=== PATIENT | female | born 1950 | race Caucasian/White ===

== ENCOUNTER 2016-09-24 17:49 | Observation (INO) | payer MEDICARE, OTHER ==
--- NOTE | 2016-09-24 18:18 | EDM.PDOC ---
ED HPI GENERAL MEDICAL PROBLEM - General Chief Complaint: General Stated Complaint: SOB Time Seen by Provider: 09/24/16 17:50 Source of Information: Reports: Patient History Limitations: Reports: No Limitations - History of Present Illness INITIAL COMMENTS - FREE TEXT/NARRATIVE: According to patient she has been feeling shortness of breath since today morning. Pt does have CHF with sever pulmonary hypertension with obstructive sleep apnea. She does use oxygen by nasal canula. No chest pain. But claims she does not feel good. No fever or chills. No sweating. No calf pain. Pt does appear comfortable in the emergency room. Not tachypnec. Sats are around 91% on her routine 2 litre oxygen. - Related Data Allergies Allergy/AdvReac Type Severity Reaction Status Date / Time No Known Allergies Allergy Verified 07/18/15 22:24 Home Meds: Home Meds Ipratropium/Albuterol Sulfate [Iprat-Albut 0.5-3(2.5) MG/3 ML] 2.5 mg IH Q4HR PRN 09/13/13 [History] Lisinopril 10 mg PO DAILY 09/13/13 [History] Nitroglycerin [Nitrostat] 0.4 mg SL Q5M PRN 09/13/13 [History] Omeprazole 20 mg PO DAILY 09/13/13 [History] Pregabalin [Lyrica] 150 mg PO BID 09/13/13 [History] Gabapentin [Neurontin] 1 cap PO BID 01/03/15 [History] Topiramate 1 tab PO DAILY 01/03/15 [History] Vit B12/Fa/Pyridoxine HCl/AA15 [Glycotrol] 1,000 mcg PO DAILY 01/03/15 [History] oxyCODONE HCl/Acetaminophen [Percocet 5-325 mg Tablet] 1 tab PO BID 01/03/15 [ History] rOPINIRole [Requip] 4 mg PO BEDTIME 01/04/15 [History] Insulin Aspart [Novolog Flexpen] 4 unit SQ ASDIRECTED 01/14/16 [History] Bumetanide 2 mg PO BID 09/15/16 [History] Carvedilol 25 mg PO BID 09/15/16 [History] Insulin Glargine,Hum.Rec.Anlog [Lantus Solostar] 20 unit SQ BEDTIME 09/15/16 [ History] LORazepam 1 tab PO ASDIRECTED 09/15/16 [History] Mupirocin Oint [Bactroban Oint] 1 strip TOP DAILY 09/15/16 [History] Pregabalin [Lyrica] 1 tab PO BEDTIME 09/15/16 [History] atorvaSTATin Calcium [Atorvastatin Calcium] 1 tab PO DAILY 09/15/16 [History] hydrOXYzine HCl [hydrOXYzine] 1 tab PO BEDTIME PRN 09/15/16 [History] traZODone 1 tab PO BEDTIME PRN 09/15/16 [History] Past Medical History HEENT History: Reports: Other (See Below) Other HEENT History: Eye removed Cardiovascular History: Reports: Blood Clots/VTE/DVT, High Cholesterol, Hypertension, SOB on Exertion, Stents Respiratory History: Reports: Pneumonia, Recurrent, SOB Gastrointestinal History: Reports: Chronic Constipation Genitourinary History: Reports: UTI, Recurrent [employer] History: Reports: Musculoskeletal History: Reports: Back Pain, Chronic, Fibromyalgia Neurological History: Reports: None Psychiatric History: Reports: Anxiety Endocrine/Metabolic History: Reports: Diabetes, Type II, Obesity/BMI 30+ Hematologic History: Reports: Iron Deficiency, Other (See Below) Other Hematologic History: DVTs - Infectious Disease History Infectious Disease History: Reports: Chicken Pox, Measles, Mumps - Past Surgical History HEENT Surgical History: Reports: Cataract Surgery, Eye Surgery Cardiovascular Surgical History: Reports: None, Other (See Below) Social & Family History - Family History Family Medical History: Noncontributory HEENT: Reports: Cataract, Macular Degeneration Cardiac: Reports: MS, Stent Respiratory: Reports: Asthma, COPD GI: Reports: Other (See Below) Other GI Family History: cancer : Reports: Other (See Below) Other Family History: cancer OBGYN: Reports: Other (See Below) Other OBGYN Family History: not sure Musculoskeletal: Reports: Arthritis Neurological: Reports: Alzheimers Disease, Dementia, Migraines, Neuropathy, Peripheral Psychiatric: Reports: Anxiety Endocrine/Metabolic: Reports: Diabetes, type II, Obesity/MBI 30+ Hematologic: Reports: Anemia Oncologic: Reports: Bladder, Other (See Below) Other Oncologic Family History: stomach - Tobacco Use Smoking Status *Q: Former Smoker Years of Tobacco use: 50 Packs/Tins Daily: 0 Used Tobacco, but Quit: Yes Month Tobacco Last Used: 01 Second Hand Smoke Exposure: Yes - Caffeine Use Caffeine Use: Reports: Tea - Alcohol Use Days Per Week of Alcohol Use: 1 Number of Drinks Per Day: 1 Total Drinks Per Week: 1 - Recreational Drug Use Recreational Drug Use: Yes Drug Use in Last 12 Months: Yes Recreational Drug Type: Reports: Marijuana/Hashish Recreational Drug Use Frequency: Weekly Recreational Drug Last Use: 09/13/2013 - Living Situation & Occupation Living situation: Reports: Occupation: Unemployed ED ROS GENERAL - Review of Systems Review Of Systems: See Below Constitutional: Denies: Fever, Chills, Malaise, Weakness HEENT: Denies: Sinus Problem, Throat Pain, Throat Swelling Respiratory: Reports: Shortness of Breath. Denies: Wheezing, Pleuritic Chest Pain, Cough, Sputum Cardiovascular: Denies: Chest Pain, Lightheadedness GI/Abdominal: Denies: Abdominal Pain, Nausea, Vomiting : Denies: Dysuria, Flank Pain Musculoskeletal: Reports: Back Pain (chronic). Denies: Joint Pain, Joint Swelling Skin: Denies: Pruritis, Rash Neurological: Denies: Confusion, Dizziness, Headache, Numbness, Syncope, Tingling Psychiatric: Denies: Agitation, Anxiety ED EXAM, GENERAL - Physical Exam Exam: See Below Exam Limited By: No Limitations General Appearance: Alert, WD/WN, No Apparent Distress Eye Exam: Bilateral Eye: EOMI, PERRL Ears: Normal External Exam, Normal Canal, Hearing Grossly Normal, Normal TMs Ear Exam: Bilateral Ear: Auricle Normal, Canal Normal, TM normal Nose: Normal Inspection, Normal Mucosa, No Blood Throat/Mouth: Normal Inspection, Normal Lips, Normal Teeth, Normal Gums, Normal Oropharynx, Normal Voice, No Airway Compromise Head: Atraumatic, Normocephalic Neck: Normal Inspection, Supple, Non-Tender, Full Range of Motion Respiratory/Chest: No Respiratory Distress, No Accessory Muscle Use, Chest Non- Tender, Decreased Breath Sounds (B/L), Wheezing (few expiratory rhonchi heard over the lung felipe) Cardiovascular: Normal Peripheral Pulses, Regular Rate, Rhythm, No Edema, No Gallop, No JVD, No Murmur, No Rub Peripheral Pulses: 2+: Carotid (L), Carotid (R), Radial (L), Radial (R) GI/Abdominal: Normal Bowel Sounds, Soft, Non-Tender, No Organomegaly, No Distention, No Abnormal Bruit, No Mass Extremities: Pedal Edema Neurological: Alert, Oriented, CN II-XII Intact Psychiatric: Normal Affect, Normal Mood EKG INTERPRETATION EKG Date: 09/24/16 Rhythm: NSR Kiln: Normal QRS: Normal ST-T: Normal QT: Normal Course - Vital Signs Text/Narrative:: Pt claims she is short of breath, but her SPO2 is a her base line of 91% on 2 litres NC O2. Also she does not appears in any discomfort and her respiratory rate is 12-14/min. Pt does appear stable. She did receive duoneb treatment. her breath sounds improved. SPO upto 95% when she breaths through her nostrils. Also she received Lasix 40mg IV times one. Pt claims that her Shortness of breath has improved after lasix and duonebs. Pt recently has been evaluated by heel cover splitter for Severe pulmonary hypertension. She is due to get CT chest with contrast. Will get it done today to see if her SOB is intrinsic lung disease causing the shortness of breath. Pt' s BMP is normal other than, Creat is elevated,and her GFR is [address] angio was cancelled. Pt's CBC appears normal. her troponin is mild elevated at 0.02. Pt is presently asymptomatic, but she does have history of CAD. hence I have admitted patient to hospital for Observation. Will repeat Troponin at 12 midnight and followup[address] will place patient on telemetry. Last Recorded V/S: Last Vital Signs Temp 98.3 F 09/24/16 18:32 Pulse 77 09/24/16 18:32 Resp 22 H 09/24/16 18:32 BP 189/94 H 09/24/16 18:32 Pulse Ox 89 L 09/24/16 18:32 - Orders/Labs/Meds Orders: Active Orders 24 hr Category Date Time Status EKG Documentation Completion [RC] ASDIRECTED Care 09/24/16 18:11 Ordered RT Aerosol Therapy [RC] ASDIRECTED Care 09/24/16 18:23 Ordered Chest w Cont [CT] Stat Exams 09/24/16 18:09 Ordered Labs: Laboratory Tests 09/24/16 09/24/16 09/24/16 Range/Units 18:32 18:32 18:32 WBC 9.8 D (4.0-11.0) K/uL RBC 4.27 (3.80-5.80) M/uL Hgb 10.9 L (11.5-16.5) g/dL Hct 35.4 L (37.0-47.0) % MCV 83 (76-96) fL MCH 25.5 L (27.0-32.0) pg MCHC 30.8 L (31.0-35.0) g/dL RDW 23.2 H (11.0-16.0) % Plt Count 144 L (150-500) K/uL MPV 11.1 H (6.0-10.0) fL Neut % (Auto) 81.6 H (45.0-70.0) % Lymph % (Auto) 8.4 L (20.0-40.0) % [place] % (Auto) 6.6 (3.0-10.0) % Eos % (Auto) 3.1 (1.0-5.0) % Baso % (Auto) 0.3 (0.0-0.5) % Neut # (Auto) 7.99 H (2.00-7.50) K/uL Lymph # (Auto) 0.82 L (1.50-4.00) K/uL [place] # (Auto) 0.65 (0.20-0.80) K/uL Eos # (Auto) 0.30 (0.04-0.40) K/uL Baso # (Auto) 0.03 (0.02-0.10) K/uL Sodium 144 (136-145) mmol/L Potassium 4.0 (3.5-5.1) mmol/L Chloride 108 H (98-107) mmol/L Carbon Dioxide 29.4 (21.0-32.0) mmol/L Anion Gap 10.6 (5.0-15.0) mmol/L BUN 22 D (8-26) mg/dL Creatinine 1.18 H (0.55-1.02) mg/dL Est Cr Clr Drug Dosing 37.09 mL/min Estimated GFR (MDRD) 46 L (>60) MLS/MIN BUN/Creatinine Ratio 18.6 (6-25) Glucose 246 H D (74-100) mg/dL Calcium 9.3 (8.5-10.1) mg/dL Troponin I 0.022 D (0.000-0.060) ng/mL Meds: Medications Discontinued Medications Generic Name Dose Route Start Last Admin Trade Name Saravanan PRN Reason Stop Dose Admin Albuterol/Ipratropium 3 ml 09/24/16 18:22 Duoneb 3.0-0.5 Mg/3 Ml NEB 09/24/16 18:23 STAT STA Furosemide 40 mg 09/24/16 18:22 Lasix IVPUSH 09/24/16 18:23 NOW ONE Departure - Departure Time of Disposition: 19:00 Disposition: Refer to Observation Condition: Fair Clinical Impression: Elevation of cardiac enzymes, Dyspnea - Discharge Information Forms: ED Department Discharge - Problem List & Annotations (1) Elevation of cardiac enzymes SNOMED Code(s): 870124821 Code(s): R74.8 - ABNORMAL LEVELS OF OTHER SERUM ENZYMES Status: Acute Current Visit: Yes - Problem List Review Problem List Initiated/Reviewed/Updated: Yes - My Orders Last 24 Hours: My Active Orders 09/24/16 18:09 Chest w Cont [CT] Stat 09/24/16 18:11 EKG Documentation Completion [RC] ASDIRECTED 09/24/16 18:23 RT Aerosol Therapy [RC] ASDIRECTED - Assessment/Plan Last 24 Hours: My Active Orders 09/24/16 18:09 Chest w Cont [CT] Stat 09/24/16 18:11 EKG Documentation Completion [RC] ASDIRECTED 09/24/16 18:23 RT Aerosol Therapy [RC] ASDIRECTED Assessment:: Dyspnea with elevated cardiac enzymes Plan: Pt claims she is short of breath, but her SPO2 is a her base line of 91% on 2 litres NC O2. Also she does not appears in any discomfort and her respiratory rate is 12-14/min. Pt does appear stable. She did receive duoneb treatment. her breath sounds improved. SPO upto 95% when she breaths through her nostrils. Also she received Lasix 40mg IV times one. Pt claims that her Shortness of breath has improved after lasix and duonebs. Pt recently has been evaluated by heel cover splitter for Severe pulmonary hypertension. She is due to get CT chest with contrast. Will get it done today to see if her SOB is intrinsic lung disease causing the shortness of breath. Pt' s BMP is normal other than, Creat is elevated,and her GFR is [address] angio was cancelled. Pt's CBC appears normal. her troponin is mild elevated at 0.02. Pt is presently asymptomatic, but she does have history of CAD. hence I have admitted patient to hospital for Observation. Will repeat Troponin at 12 [address] patient on telemetry.
[2016-09-24] MEDS ORDERED: Albuterol/Ipratropium 3.0-0.5 MG/3 ML Neb Soln NEB STA (18:22)
[2016-09-24] MEDS ORDERED: Furosemide 40 MG/4 ML VIAL IVPUSH ONE (18:22)
[2016-09-24] MEDS ORDERED: Sodium Chloride 0.9% 10 ML Syringe FLUSH PRN (19:32)
--- NOTE | 2016-09-25 03:00 | PCM.DCSUM1 ---
Discharge Summary - Hospital Course Free Text/Narrative:: Pt is 65 year female with PMH of COPD, CHF, CAD, diabetes, Obstructive sleep apnea with recent diagnosis of sever pulmonary hypertension, presented to emergency room with shortness of breath, But her SPO2 is at her baseline of 91- 95% on [id number]. As she had mild wheezing and has not been using her Duonebs at home due to her not able to use the nebulizer apparatus, she received duoneb and also she received lasix 40mg IV. Pt apparently felt better and her symptoms resolved. But, her LAb work done showed elevated troponin of 0.02( mild elevation from possible CHF exacerbation). Considering that patient has history of CAD with stent placement in 2013. Pt was admitted to [facility] for observation and repeat troponin in 6 hrs. Pt has had uneventful hosptial stay. She is stable and asymptomatic.Her cardiac monitoring is in NSR with hert rates in 60-70 with few occasional PVCs. Her second set of troponin is 0.03, slightly elevated from her previous value. This could be related to mild CHF exacerbation or could be her altered renal function making her troponin elevation. I did contact Dr. Singh. Dr. Singh did request D-dimer and chest Xray, which were done per his request. Chest X-ray shows moderate cardiomegaly with mild pulmonary congestion in the base, unchanged from her previous xray done on 01/14/2016. Also her D-dimer was 659 mildly elevated. Pt has had several elevated D-dimers in the past. Most recent D-dimer on 02/07/2016 was 744, negative for DVT venous doppler. Her D-dimer on 04/29/14 was 414 with negative DVT workup. Apparently pt has lower extremity edema secondary to CHF with underlying chronic thrombophlebits, which causes extreme lower extremity swelling for which she uses GIRISH wrap as she does not tolerate Pressure stockings. Pt was planned to have CT Angiogram today as per the request of her molded frames assembler for her pulmonary hypertension workup. But it was not done as her GFR is 37, and the [facility] radiology Dept criteria is GFR of 40 and above for contrast. As patient does have significant history of CAD and her careers counsellor is Dr. Saravia. I did discuss patient with Dr. Singh after the results were available. He did agree to accept patient. I have not started her on heparin or plavix as this appears like CHF related cardaic enzyme elevation. But she does take aspirin and Coreg at home regularly. Pt is asymptomatic since hospitalization and hemodynamically stable for ALS transfer by ambulance. Further care as per Dr. Singh. Brief History: Pt presented with Chest thighness( describe as shortness of breath by patient) since around 8 Am today. Kindly see H&P for details. - Discharge Data Discharge Date: 09/25/16 Discharge Disposition: DC/Tfer to Acute Hospital 02 Condition: Fair - Discharge Diagnosis/Problem(s) (1) Elevation of cardiac enzymes SNOMED Code(s): 008276248 ICD Code: R74.8 - ABNORMAL LEVELS OF OTHER SERUM ENZYMES Status: Acute Current Visit: Yes - Discharge Plan Home Medications: Home Meds Ipratropium/Albuterol Sulfate [Iprat-Albut 0.5-3(2.5) MG/3 ML] 2.5 mg IH Q4HR PRN 09/13/13 [History] Lisinopril 10 mg PO DAILY 09/13/13 [History] Nitroglycerin [Nitrostat] 0.4 mg SL Q5M PRN 09/13/13 [History] Omeprazole 20 mg PO DAILY 09/13/13 [History] Pregabalin [Lyrica] 150 mg PO BID 09/13/13 [History] Gabapentin [Neurontin] 1 cap PO BID 01/03/15 [History] Topiramate 1 tab PO DAILY 01/03/15 [History] Vit B12/Fa/Pyridoxine HCl/AA15 [Glycotrol] 1,000 mcg PO DAILY 01/03/15 [History] oxyCODONE HCl/Acetaminophen [Percocet 5-325 mg Tablet] 1 tab PO BID 01/03/15 [ History] rOPINIRole [Requip] 4 mg PO BEDTIME 01/04/15 [History] Insulin Aspart [Novolog Flexpen] 5 unit SQ ASDIRECTED 01/14/16 [History] Bumetanide 2 mg PO BID 09/15/16 [History] Carvedilol 25 mg PO BID 09/15/16 [History] Insulin Glargine,Hum.Rec.Anlog [Lantus Solostar] 20 unit SQ BEDTIME 09/15/16 [ History] Mupirocin Oint [Bactroban Oint] 1 strip TOP DAILY 09/15/16 [History] Pregabalin [Lyrica] 1 tab PO BEDTIME 09/15/16 [History] atorvaSTATin Calcium [Atorvastatin Calcium] 1 tab PO DAILY 09/15/16 [History] traZODone 1 tab PO BEDTIME PRN 09/15/16 [History] Forms: ED Department Discharge - Discharge Summary/Plan Comment DC Time >30 min.: Yes - General Info Functional Status: Reports: Tolerating Diet, Ambulating, Urinating - Review of Systems General: Denies: Fever, Weakness HEENT: Denies: Sinus Congestion, Sore Throat Pulmonary: Denies: Shortness of Breath, Pleuritic Chest Pain, Cough, Sputum Cardiovascular: Reports: Edema. Denies: Chest Pain, Palpitations, Dyspnea on Exertion, Orthopnea, Lightheadedness Gastrointestinal: Denies: Abdominal Pain, Constipation, Nausea, Vomiting Genitourinary: Denies: Dysuria, Frequency Musculoskeletal: Denies: Joint Pain, Joint Swelling Skin: Denies: Pruritis, Rash Neurological: Reports: No Symptoms Psychiatric: Reports: No Symptoms - Patient Data Vitals - Most Recent: Last Vital Signs Temp 98.1 F 09/24/16 23:21 Pulse 77 09/24/16 23:21 Resp 16 09/24/16 23:21 BP 161/73 H 09/24/16 23:21 Pulse Ox 97 09/24/16 23:21 Weight - Most Recent: 85.275 kg Lab Results - Last 24 hrs: Laboratory Results - last 24 hr 09/25/16 09/25/16 Range/Units 00:00 00:00 D-Dimer, Quantitative 659 H (0-400) ng/mL Troponin I 0.033 D (0.000-0.060) ng/mL Med Orders - Current: Current Medications Sodium Chloride (Saline Flush) 10 ml FLUSH ASDIRECTED PRN PRN Reason: Keep Vein Open Discontinued Medications Albuterol/Ipratropium (Duoneb 3.0-0.5 Mg/3 Ml) 3 ml NEB STAT STA Stop: 09/24/16 18:23 Furosemide (Lasix) 40 mg IVPUSH NOW ONE Stop: 09/24/16 18:23 - Exam Quality Assessment: Reports: Supplemental Oxygen General: Reports: Alert, Oriented HEENT: Reports: Pupils Equal, Pupils Reactive, EOMI, Mucous Membr. Moist/Gleed Neck: Reports: Supple Lungs: Reports: Normal Respiratory Effort, Decreased Breath Sounds (b/l basal ) , Rales (few absal fine expiratory). Denies: Rhonchi, Stridor Cardiovascular: Reports: Regular Rate, Regular Rhythm GI/Abdominal Exam: Normal Bowel Sounds, Soft, Non-Tender, No Organomegaly, No Distention, No Abnormal Bruit, No Mass, Pelvis Stable Extremities: Normal Range of Motion, Pedal Edema (Edema secondary to chronic thrombophlebits and CHF.). No: Joint Swelling, Susan's Sign, Leg Pain *Q Meaningful Use (DIS) - VTE *Q VTE Criteria *Q: - Stroke *Q Stroke Criteria *Q: - AMI *Q AMI Criteria *Q:
[2016-09-25 04:01] VITALS: BP 148/68
--- NOTE | 2016-09-25 08:34 | CR ---
DATE OF SERVICE: 09/25/16 CLINICAL DATA: SOB AP AND LATERAL CHEST: Comparison is made to a prior exam dated 01/14/16. The patient has taken a poor inspiration. The heart is enlarged. It is increased in size from the prior exam. It does have a globular configuration suggesting a pericardial effusion. The aorta is calcified and ectatic. There is pulmonary vascular congestion and mild interstitial edema consistent with congestive failure. There is blunting of both costophrenic angles consistent with bilateral pleural effusions. There is increased density in both lower lungs consistent with atelectasis or infiltrate. Pneumonia should be considered. No other interval changes from the prior study. [id number] [facility]
== END 2016-09-25 03:45 ==
LOC: LB.ED 17:49 → LB.MS 19:21
PROVIDERS: ADMIT Family Medicine; ATTEND Family Medicine
DX: R74.8 Abnormal levels of other serum enzymes (principal); I10 Essential (primary) hypertension; E78.00 Pure hypercholesterolemia, unspecified; E11.9 Type 2 diabetes mellitus without complications; E66.9 Obesity, unspecified; Z68.30 Body mass index [BMI] 30.0-30.9, adult; Z79.4 Long term (current) use of insulin; Z79.899 Other long term (current) drug therapy; Z98.890 Other specified postprocedural states; Z87.891 Personal history of nicotine dependence
CPT/HCPCS: 36415; 71020; 80048; 83880; 84484; 85025; 85379; 93005; 96374; 99217; 99219; 99285; A0425; A0429; J1940; J7050; J7620; G0378

== ENCOUNTER 2016-09-29 20:14 | Emergency (ER) | payer MEDICARE, OTHER ==
[2016-09-29] MEDS ORDERED: Silver Sulfadiazine 1% Crm 50 GM Tube TOP ONE (20:30)
[2016-09-29 20:34] VITALS: BP 156/74
[2016-09-29] MEDS ORDERED: Diphtheria/Tetanus Toxoids,Adult (Td) 0.5 ML SDV IM ONE (20:51)
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
== END 2016-09-29 21:10 | disposition home or self-care (01) ==
LOC: LB.ED 20:14
DX: T20.10XA Burn of first degree of head, face, and neck, unspecified site, initial encounter (principal); E78.00 Pure hypercholesterolemia, unspecified; I11.0 Hypertensive heart disease with heart failure; I50.9 Heart failure, unspecified; F17.210 Nicotine dependence, cigarettes, uncomplicated; K59.00 Constipation, unspecified; E11.9 Type 2 diabetes mellitus without complications; E66.9 Obesity, unspecified; D50.9 Iron deficiency anemia, unspecified; Z95.5 Presence of coronary angioplasty implant and graft; Z87.01 Personal history of pneumonia (recurrent); Z79.4 Long term (current) use of insulin; Z79.899 Other long term (current) drug therapy; Z87.440 Personal history of urinary (tract) infections; Z98.49 Cataract extraction status, unspecified eye; X08.8XXA Exposure to other specified smoke, fire and flames, initial encounter
CPT/HCPCS: 16020; 90471; 90714; 99283; A9270

== ENCOUNTER 2016-10-20 08:25 | Emergency (ER) | payer MEDICARE, OTHER ==
[2016-10-20] MEDS ORDERED: Bumetanide 1 MG/4 ML MDV IVPUSH ONE (09:02)
[2016-10-20] MEDS ORDERED: Bumetanide 1 MG/4 ML MDV ONE (09:45)
[2016-10-20] MEDS ORDERED: Bumetanide 2.5 MG/10 ML MDV IVPUSH SCH (09:45)
[2016-10-20 10:23] VITALS: BP 158/93
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
--- NOTE | 2016-10-20 17:14 | CR ---
DATE OF SERVICE: 10/20/16 CLINICAL DATA: sob, hx chf and copd AP PORTABLE CHEST Comparison is made to a prior exam dated 09/25/16. The patient has taken a poor inspiration and is rotated to the left. The heart remains enlarged. It may be slightly smaller than on the prior exam. The pulmonary vascular congestion on the prior exam appears unchanged. The right pleural effusion has decreased. There is increased density in the right lung base consistent with basilar atelectasis or infiltrate. It does, however, appear slightly clearer than on the prior study. There is a persistent left pleural effusion which may be slightly increased. The left lung base does appear slightly clearer than on the prior exam. No other interval changes. Continued followup is recommended. [id number] [facility]
== END 2016-10-20 11:44 ==
LOC: LB.ED 08:25
DX: I11.0 Hypertensive heart disease with heart failure (principal); I50.9 Heart failure, unspecified; E78.00 Pure hypercholesterolemia, unspecified; E11.21 Type 2 diabetes mellitus with diabetic nephropathy; F41.9 Anxiety disorder, unspecified; E66.9 Obesity, unspecified; Z86.718 Personal history of other venous thrombosis and embolism; Z87.440 Personal history of urinary (tract) infections; Z79.82 Long term (current) use of aspirin; Z79.899 Other long term (current) drug therapy; Z79.4 Long term (current) use of insulin; Z87.891 Personal history of nicotine dependence
CPT/HCPCS: 36415; 71010; 80053; 83880; 84484; 85025; 93005; 96374; 99285; A0425; A0429; S0171

== ENCOUNTER 2017-02-26 17:14 | Emergency (ER) | payer MEDICARE, OTHER ==
--- NOTE | 2017-02-26 17:41 | EDM.PDOC ---
ED HPI GENERAL MEDICAL PROBLEM - General Chief Complaint: General Stated Complaint: SOB Time Seen by Provider: 02/26/17 17:23 Source of Information: Reports: Patient, Family, RN History Limitations: Reports: No Limitations - History of Present Illness INITIAL COMMENTS - FREE TEXT/NARRATIVE: 66 yr female presents with shortness of breath. States family visited today and had a chest cold and she also had some extra salty food lately. She does have inhalers at home and nebulizer and does have diuretic at home. Pt sitting in wheelchair and no acute distress. 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, Other (see below) (CPAP) - Related Data Allergies Allergy/AdvReac Type Severity Reaction Status Date / Time No Known Allergies Allergy Verified 02/26/17 17:48 Home Meds: Home Meds Ipratropium/Albuterol Sulfate [Iprat-Albut 0.5-3(2.5) MG/3 ML] 2.5 mg IH Q4HR PRN 09/13/13 [History] Lisinopril 10 mg PO DAILY 09/13/13 [History] Nitroglycerin [Nitrostat] 0.4 mg SL Q5M PRN 09/13/13 [History] Omeprazole 20 mg PO DAILY 09/13/13 [History] Pregabalin [Lyrica] 150 mg PO BID 09/13/13 [History] Gabapentin [Neurontin] 1 cap PO BID 01/03/15 [History] Topiramate 1 tab PO DAILY 01/03/15 [History] Vit B12/Fa/Pyridoxine HCl/AA15 [Glycotrol] 1,000 mcg PO DAILY 01/03/15 [History] rOPINIRole [Requip] 4 mg PO BEDTIME 01/04/15 [History] Insulin Aspart [Novolog Flexpen] 5 unit SQ TIDMEALS 01/14/16 [History] Bumetanide 2 mg PO BID 09/15/16 [History] Carvedilol 25 mg PO BID 09/15/16 [History] Insulin Glargine,Hum.Rec.Anlog [Lantus Solostar] 20 unit SQ BID 09/15/16 [ History] Pregabalin [Lyrica] 1 tab PO BEDTIME 09/15/16 [History] atorvaSTATin Calcium [Atorvastatin Calcium] 1 tab PO DAILY 09/15/16 [History] traZODone 1 tab PO BEDTIME PRN 09/15/16 [History] traMADol [Ultram] 50 mg PO Q6HR PRN 09/29/16 [History] Aspirin [Ecotrin] 81 mg PO DAILY 10/20/16 [History] Clopidogrel [Plavix] 75 mg PO DAILY 10/20/16 [History] Docusate Sodium/Sennosides [Senna Plus] 1 each PO BID 10/20/16 [History] Isosorbide Mononitrate [Isosorbide Mononitrate ER] 30 mg PO DAILY 10/20/16 [ History] oxyCODONE HCl/Acetaminophen [Endocet 5-325 Tablet] 1 each PO BID 10/20/16 [ History] Past Medical History HEENT History: Reports: Other (See Below) 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 Cardiovascular History: Reports: Blood Clots/VTE/DVT, High Cholesterol, Hypertension, Pulmonary Hypertension, SOB on Exertion, Stents Respiratory History: Reports: COPD, Pneumonia, Recurrent, SOB Gastrointestinal History: Reports: Chronic Constipation Genitourinary History: Reports: Diabetic Nephropathy, UTI, Recurrent 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: Musculoskeletal History: Reports: Back Pain, Chronic, Fibromyalgia Neurological History: Reports: None, Migraines, Vertigo Psychiatric History: Reports: Anxiety Endocrine/Metabolic History: Reports: Diabetes, Type II, Obesity/BMI 30+ Hematologic History: Reports: Iron Deficiency, Other (See Below) Other Hematologic History: DVTs - Infectious Disease History Infectious Disease History: Reports: Chicken Pox, Measles, Mumps - Past Surgical History HEENT Surgical History: Reports: Cataract Surgery, Eye Surgery Cardiovascular Surgical History: Reports: Coronary Artery Stent Other Cardiovascular Surgeries/Procedures: 3 stents GI Surgical History: Reports: Appendectomy, Cholecystectomy Female Surgical History: Reports: None Endocrine Surgical History: Reports: None Neurological Surgical History: Reports: None Musculoskeletal Surgical History: Reports: None Social & Family History - Family History Family Medical History: Noncontributory HEENT: Reports: Cataract, Macular Degeneration Cardiac: Reports: MS, Stent Respiratory: Reports: Asthma, COPD GI: Reports: Other (See Below) Other GI Family History: cancer : Reports: Other (See Below) Other Family History: cancer OBGYN: Reports: Other (See Below) Other OBGYN Family History: not sure Musculoskeletal: Reports: Arthritis Neurological: Reports: Alzheimers Disease, Dementia, Migraines, Neuropathy, Peripheral Psychiatric: Reports: Anxiety Endocrine/Metabolic: Reports: Diabetes, type II, Obesity/MBI 30+ Hematologic: Reports: Anemia Oncologic: Reports: Bladder, Other (See Below) Other Oncologic Family History: stomach - Tobacco Use Smoking Status *Q: Former Smoker Years of Tobacco use: 50 Packs/Tins Daily: 0.5 Used Tobacco, but Quit: Yes Month Tobacco Last Used: SEPTEMBER Second Hand Smoke Exposure: Yes - Caffeine Use Caffeine Use: Reports: Tea - Alcohol Use Days Per Week of Alcohol Use: 1 Number of Drinks Per Day: 1 Total Drinks Per Week: 1 - Recreational Drug Use Recreational Drug Use: Yes Drug Use in Last 12 Months: Yes Recreational Drug Type: Reports: Marijuana/Hashish Recreational Drug Use Frequency: Monthly Recreational Drug Last Use: 09/13/2013 - Living Situation & Occupation Living situation: Reports: Occupation: Unemployed ED ROS GENERAL - Review of Systems Review Of Systems: See Below Constitutional: Reports: No Symptoms HEENT: Reports: No Symptoms Respiratory: Reports: Shortness of Breath Cardiovascular: Reports: Other (chest pressure) Endocrine: Reports: High Glucose GI/Abdominal: Reports: No Symptoms : Reports: No Symptoms Musculoskeletal: Reports: No Symptoms Skin: Reports: No Symptoms Neurological: Reports: No Symptoms Hematologic/Lymphatic: Reports: No Symptoms Immunologic: Reports: No Symptoms ED EXAM, GENERAL - Physical Exam Exam: See Below Exam Limited By: No Limitations General Appearance: Alert, WD/WN, No Apparent Distress Ears: Hearing Grossly Normal Nose: Normal Inspection Throat/Mouth: Normal Inspection, Normal Voice Head: Atraumatic, Normocephalic Neck: Supple, Non-Tender Respiratory/Chest: No Respiratory Distress, Decreased Breath Sounds (bases), Crackles (right base) Cardiovascular: Regular Rate, Rhythm, Other (peripheral edema noted) GI/Abdominal: Normal Bowel Sounds, Soft, Non-Tender Extremities: Normal Capillary Refill, Pedal Edema Neurological: Alert, Oriented Psychiatric: Normal Affect, Normal Mood Skin Exam: Warm, Dry, Normal Color. No: No Rash Lymphatic: No Adenopathy Course - Re-Assessments/Exams Free Text/Narrative Re-Assessment/Exam: 02/26/17 18:24 Pt states shortness of breath and some chest tightness: Troponin negative. BNP elevated. Chronic kidney dysfunction. Mild edema noted and crackles to left lower lobe. Furosemide 20 mg PO now. continue with Bumex 2 mg PO bid. RTC tomorrow if continued shortness of breath or Sunday to see PCP, Dr Wheeler for follow-up. Departure - Departure Time of Disposition: 18:27 Disposition: Home, Self-Care 01 Condition: Fair Clinical Impression: CHF, Congestive heart failure - Discharge Information
[2017-02-26 17:48] VITALS: BP 169/87
[2017-02-26] MEDS ORDERED: Furosemide 20 MG Tab PO ONE (18:21)
--- NOTE | 2017-02-26 21:00 | CR ---
DATE OF SERVICE: 02/26/2017 CLINICAL DATA: Shortness of breath. PA AND LATERAL CHEST: Comparison is made to a prior exam dated 08/28/2016. The heart remains grossly enlarged, unchanged from the prior exam. There is calcification of the aortic arch. There is increased density in the left mid and lower lung consistent with infiltrate or atelectasis. Pneumonia should be considered. The pulmonary vasculature is mildly prominent. There are interstitial infiltrates throughout both lungs. Congestive failure should be considered. There is blunting of both costophrenic angles consistent with bilateral pleural effusions. No other significant findings. [id number] [facility]
== END 2017-02-26 18:20 | disposition home or self-care (01) ==
LOC: LB.ED 17:14
DX: I11.0 Hypertensive heart disease with heart failure (principal); I50.9 Heart failure, unspecified; E78.00 Pure hypercholesterolemia, unspecified; J44.9 Chronic obstructive pulmonary disease, unspecified; E11.21 Type 2 diabetes mellitus with diabetic nephropathy; Z95.5 Presence of coronary angioplasty implant and graft; Z87.891 Personal history of nicotine dependence; Z79.4 Long term (current) use of insulin; Z79.82 Long term (current) use of aspirin; Z79.02 Long term (current) use of antithrombotics/antiplatelets; Z79.899 Other long term (current) drug therapy
CPT/HCPCS: 36415; 71046; 80053; 83880; 84484; 85025; 99285; A9270; 99284

== ENCOUNTER 2017-04-26 09:37 | Emergency (ER) | payer MEDICARE, OTHER ==
[2017-04-26] MEDS ORDERED: Sodium Chloride 0.9% 10 ML Syringe FLUSH PRN (09:55)
[2017-04-26] MEDS ORDERED: Naloxone 2 MG/2 ML Syringe IVPUSH PRN (10:18)
[2017-04-26] MEDS ORDERED: Sodium Chloride 0.9% 1,000 ML IV SCH (10:30)
--- NOTE | 2017-04-26 11:36 | CT ---
DATE OF SERVICE: 04/26/2017 CLINICAL DATA: Unresponsive. UNENHANCED BRAIN CT: Multislice acquisition through the brain without IV contrast was performed. Comparison is made to a prior exam dated 12/01/2013. There is mild diffuse cerebral atrophy. There are periventricular lucencies bilaterally consistent with small vessel ischemic change. No masses or mass effect. No intracranial hemorrhage. No evidence of acute or subacute infarct. There is mucosal thickening and fluid within the ethmoid and sphenoid sinuses. There is also mucosal thickening in the maxillary sinuses. The findings are consistent with sinusitis. IMPRESSION: No acute intracranial abnormalities. Findings consistent with sinusitis. [id number] [facility]
--- NOTE | 2017-04-26 11:43 | CR ---
DATE OF SERVICE: 04/26/2017 CLINICAL DATA: Unresponsive. AP PORTABLE CHEST: Comparison is made to a prior exam dated 02/26/2017. The patient has taken a very poor inspiration and is rotated to the left. The exam is also underpenetrated. The heart remains enlarged. There is mild prominence of the pulmonary vasculature. There is infiltrate and consolidation in the left mid and lower lung. Pneumonia should be considered. I cannot exclude a left pleural effusion. The right lung appears relatively clear. The exam is otherwise unchanged from the prior. [id number] [facility] [place]
--- NOTE | 2017-04-27 08:30 | ER ---
SUBJECTIVE: A 66-year-old female, who presents to the ER via ambulance. She had gone to bed last night, per her 's report, and was fine. He was unable to awaken her this morning at about 8 o'clock. She presents in the ER via ambulance and is unable to be aroused and is breathing shallow, however, does not respond to verbal cues. Pulse is regular, and her skin is warm and dry. PAST MEDICAL HISTORY: Her past medical history is very extensive. 1. Coronary artery disease. 2. COPD. 3. Nicotine addiction, long-standing. 4. Type 2 diabetes. 5. Hypertension. 6. Chronic low back pain. 7. Restless legs syndrome. 8. Insomnia. CURRENT OUTPATIENT MEDICATIONS: A low-dose aspirin 81 mg daily; atorvastatin calcium 40 mg one daily; Brovana 15 mcg 2 mL inhalation nebulization solution 1 vial nebulized twice daily; Bumex 2 mg 1 tablet b.i.d.; carvedilol 25 mg 1 tablet twice daily; Entresto 24 to 26 mg orally 1 tablet by mouth twice a day; Flonase 50 mcg per actuation, 1 spray in each nostril b.i.d.; ipratropium and albuterol 0.5/2.5 nebulized every 4 hours p.r.n. for cough and wheeze; supplemental iron 325 mg one daily; isosorbide mononitrate ER 30 mg 1 daily, ketoconazole 2% external cream applied sparingly to affected areas twice daily; Lyrica 150 mg in the morning and 150 in the afternoon and 300 mg at bedtime; Zaroxolyn 5 mg 1 daily, Nitrostat 0.4 mg sublingually one under the tongue every 5 minutes up to 3 doses p.r.n. for chest pain; omeprazole 20 mg daily; Requip 4 mg orally at bedtime; Topamax 50 mg 1 tablet daily; Tramadol 50 mg 1 tablet every 6 hours as needed for acute back pain; trazodone 50 mg at bedtime; Tylenol 325 one to two tablets every 6 hours as needed for pain; vitamin B12 at 1000 mcg orally 1 tablet daily; Lantus 100 units/mL inject 20 units at bedtime; and NovoLog 100 units/mL 5 units 3 times daily with meals. SOCIAL HISTORY: The patient is . She has been known to be a smoker, uncertain about smoking status currently, does not work outside her home. Alcohol consumption unknown. REVIEW OF SYSTEMS: Unable to ascertain any system review as the patient is not responsive. related the above information about her going to bed well last night and him being unable to awaken her this morning. OBJECTIVE DATA: VITAL SIGNS: Pulse is 66, respirations are 16, blood pressure varying, however, quite stable around the 130s/80s. GENERAL: A very somnolent-appearing 66-year-old female, appearing much older than her known age. HEENT: Does not respond to verbal stimuli. 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 Right eye has very minimal, if any, pupillary response. Conjunctiva is clear. NECK: Supple. Carotids are faintly audible bilaterally and symmetrical. Pulse is regular in the mid 60s. Secondary to the patient's body habitus, it is very difficult to auscultate respiratory status. However, no rales or rhonchi apparent. ABDOMEN: Rotund. Lying semi on right side. Edema to the hands and forearms, as well as the lower extremities bilaterally. INTEGUMENT: Arms and chest revealed multiple scabbed over areas with striations where she has been scratching. It is warm and dry, however. Lower extremities are wrapped bilaterally. Apparently is seen by Home Health, and they are doing some wound care to the lower extremities. Dressings are dry and intact. Edema surrounding the wrap, however. LAB WORK: Potassium records at 5.3. Sodium is within normal limits. Glucose records at 371, BUN elevated at 41, and her creatinine is 2.6. Estimated glomerular filtration rate is 23 and of note is that it has been 23 at previous visits here at the clinic. Alkaline phosphatase is minimally elevated at 119. Complete blood count shows a white count of 8.7 and a hemoglobin of 13. Hematocrit of 44.1. Pro time is 11.6, and her INR records within normal limits of 1.2. Of note, as such she is not on any anticoagulation medications. Electrocardiograph today does show a first degree AV block, however, pulse time is steady at 66. CT scan shows no acute intracranial hemorrhage and her chest film shows left retrograde atelectasis consolidation versus artifact related to superimposed soft tissues. Does state that it is unchanged from her previous chest film here at the clinic. Troponin is recorded within normal limits. ASSESSMENT: ER admit. This is a very somnolent 66-year-old female, failure to arouse this morning. 1. Extremely elevated blood sugar. 2. Renal failure/insufficiency. 3. High potassium level. 4. Known chronic obstructive pulmonary disease. 5. Type 2 diabetes. 6. Hypertension. 7. Chronic back pain. 8. Restless legs syndrome and insomnia. PLAN: IVs are started, one as a lock and one just as to keep open. [facility] is called to take over patient's care. She was given 1 mg of Narcan IV push x1. Also a drug urine screen is ordered, and she does have oxygen started at 3 L per cannula. The patient is catheterized and will be air ambulanced to the [facility] in [place] under the care of Dr. Mathew. Because of the patient's high possibility of degradation, I am sending her via fixed wing. Her , Lyle, is in attendance; however, he will be following via automobile either later this afternoon or tomorrow. PEDRO PABLO/NATHALY /[id number]
== END 2017-04-26 11:00 ==
LOC: LB.ED 09:37
DX: J44.9 Chronic obstructive pulmonary disease, unspecified (principal); E11.9 Type 2 diabetes mellitus without complications; I10 Essential (primary) hypertension; G89.29 Other chronic pain; M54.9 Dorsalgia, unspecified; E87.5 Hyperkalemia; N19 Unspecified kidney failure; G25.81 Restless legs syndrome; G47.00 Insomnia, unspecified; F17.200 Nicotine dependence, unspecified, uncomplicated; Z79.82 Long term (current) use of aspirin; Z79.899 Other long term (current) drug therapy; Z79.4 Long term (current) use of insulin
CPT/HCPCS: 36415; 51702; 70450; 71045; 80053; 80307; 82962; 84484; 85025; 85610; 85730; 93005; 96374; 99291-25; A0425; A0429

== ENCOUNTER 2017-08-18 18:45 | Emergency (ER) | payer MEDICARE, OTHER ==
[2017-08-18 20:27] VITALS: BP 135/66
--- NOTE | 2017-08-18 22:18 | EDM.PDOC ---
ED HPI GENERAL MEDICAL PROBLEM - General Chief Complaint: General Stated Complaint: REDNESS/IRRITATION IN EYE Time Seen by Provider: 08/18/17 18:45 Source of Information: Reports: Patient, Family History Limitations: Reports: No Limitations - History of Present Illness INITIAL COMMENTS - FREE TEXT/NARRATIVE: Patient is a 66 year old woman who noticed this afternoon that she had blood in the conjunctiva of her right eye by her nose. It is not sore but she feels like she has some dust in the eye. Her vision is good and unchanged in that eye. 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 Onset: Today, Sudden Onset Date: 08/18/17 Onset Time: 14:00 Duration: Hour(s): (4) Location: Reports: Face Quality: Reports: Other (Mild foreign body sensation in the right eye.) Severity: Mild Improves with: Reports: None Worsens with: Reports: None Context: Reports: Other (On anticoagulants and aspirin.) Associated Symptoms: Reports: No Other Symptoms - Related Data Allergies Allergy/AdvReac Type Severity Reaction Status Date / Time No Known Allergies Allergy Verified 02/26/17 17:48 Home Meds: Home Meds Ipratropium/Albuterol Sulfate [Iprat-Albut 0.5-3(2.5) MG/3 ML] 2.5 mg IH Q4HR PRN 09/13/13 [History] Lisinopril 10 mg PO DAILY 09/13/13 [History] Nitroglycerin [Nitrostat] 0.4 mg SL Q5M PRN 09/13/13 [History] Omeprazole 20 mg PO DAILY 09/13/13 [History] Pregabalin [Lyrica] 150 mg PO BID 09/13/13 [History] Gabapentin [Neurontin] 1 cap PO BID 01/03/15 [History] Topiramate 1 tab PO DAILY 01/03/15 [History] Vit B12/Fa/Pyridoxine HCl/AA15 [Glycotrol] 1,000 mcg PO DAILY 01/03/15 [History] rOPINIRole [Requip] 4 mg PO BEDTIME 01/04/15 [History] Insulin Aspart [Novolog Flexpen] 5 unit SQ TIDMEALS 01/14/16 [History] Bumetanide 2 mg PO BID 09/15/16 [History] Carvedilol 25 mg PO BID 09/15/16 [History] Insulin Glargine,Hum.Rec.Anlog [Lantus Solostar] 20 unit SQ BID 09/15/16 [ History] Pregabalin [Lyrica] 1 tab PO BEDTIME 09/15/16 [History] atorvaSTATin Calcium [Atorvastatin Calcium] 1 tab PO DAILY 09/15/16 [History] traZODone 1 tab PO BEDTIME PRN 09/15/16 [History] traMADol [Ultram] 50 mg PO Q6HR PRN 09/29/16 [History] Aspirin [Ecotrin] 81 mg PO DAILY 10/20/16 [History] Clopidogrel [Plavix] 75 mg PO DAILY 10/20/16 [History] Docusate Sodium/Sennosides [Senna Plus] 1 each PO BID 10/20/16 [History] Isosorbide Mononitrate [Isosorbide Mononitrate ER] 30 mg PO DAILY 10/20/16 [ History] oxyCODONE HCl/Acetaminophen [Endocet 5-325 Tablet] 1 each PO BID 10/20/16 [ History] Past Medical History HEENT History: Reports: Other (See Below) 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 Cardiovascular History: Reports: Blood Clots/VTE/DVT, High Cholesterol, Hypertension, Pulmonary Hypertension, SOB on Exertion, Stents Respiratory History: Reports: COPD, Pneumonia, Recurrent, SOB Gastrointestinal History: Reports: Chronic Constipation Genitourinary History: Reports: Diabetic Nephropathy, UTI, 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: Musculoskeletal History: Reports: Back Pain, Chronic, Fibromyalgia Neurological History: Reports: None, Migraines, Vertigo Psychiatric History: Reports: Anxiety Endocrine/Metabolic History: Reports: Diabetes, Type II, Obesity/BMI 30+ Hematologic History: Reports: Iron Deficiency, Other (See Below) Other Hematologic History: DVTs - Infectious Disease History Infectious Disease History: Reports: Chicken Pox, Measles, Mumps - Past Surgical History HEENT Surgical History: Reports: Cataract Surgery, Eye Surgery Cardiovascular Surgical History: Reports: Coronary Artery Stent Other Cardiovascular Surgeries/Procedures: 3 stents GI Surgical History: Reports: Appendectomy, Cholecystectomy Female Surgical History: Reports: None Endocrine Surgical History: Reports: None Neurological Surgical History: Reports: None Musculoskeletal Surgical History: Reports: None Dermatological Surgical History: Reports: None Social & Family History - Family History Family Medical History: Noncontributory HEENT: Reports: Cataract, Macular Degeneration Cardiac: Reports: IN, Stent Respiratory: Reports: Asthma, COPD GI: Reports: Other (See Below) Other GI Family History: cancer : Reports: Other (See Below) Other Family History: cancer OBGYN: Reports: Other (See Below) Other OBGYN Family History: not sure Musculoskeletal: Reports: Arthritis Neurological: Reports: Alzheimers Disease, Dementia, Migraines, Neuropathy, Peripheral Psychiatric: Reports: Anxiety Endocrine/Metabolic: Reports: Diabetes, type II, Obesity/MBI 30+ Hematologic: Reports: Anemia Oncologic: Reports: Bladder, Other (See Below) Other Oncologic Family History: stomach - Caffeine Use Caffeine Use: Reports: Tea - Living Situation & Occupation Living situation: Reports: Occupation: Unemployed ED ROS GENERAL - Review of Systems Review Of Systems: See Below Constitutional: Reports: No Symptoms HEENT: Reports: Other (Blood in eye.) Respiratory: Reports: No Symptoms Cardiovascular: Reports: No Symptoms Endocrine: Reports: No Symptoms GI/Abdominal: Reports: No Symptoms : Reports: No Symptoms Musculoskeletal: Reports: No Symptoms Skin: Reports: No Symptoms Neurological: Reports: No Symptoms Psychiatric: Reports: No Symptoms Hematologic/Lymphatic: Reports: No Symptoms Immunologic: Reports: No Symptoms ED EXAM, GENERAL - Physical Exam Exam: See Below Exam Limited By: No Limitations General Appearance: Alert, WD/WN, No Apparent Distress Eye Exam: Right Eye: Conjunctival Injection (Subconjunctival hemorrhage present right eye nasal side.), Bilateral Eye: EOMI, Foreign Body (None present bilaterally), Normal Fundi, Normal Inspection Ears: Normal External Exam, Normal Canal, Hearing Grossly Normal, Normal TMs Ear Exam: Bilateral Ear: Auricle Normal, Canal Normal, TM normal Nose: Normal Inspection, Normal Mucosa, No Blood Throat/Mouth: Normal Inspection, Normal Lips, Normal Teeth, Normal Gums, Normal Oropharynx, Normal Voice, No Airway Compromise Head: Atraumatic, Normocephalic Neck: Normal Inspection, Supple, Non-Tender, Full Range of Motion Respiratory/Chest: No Respiratory Distress, Lungs Clear, Normal Breath Sounds, No Accessory Muscle Use, Chest Non-Tender Cardiovascular: Normal Peripheral Pulses, Regular Rate, Rhythm, No Edema, No Gallop, No JVD, No Murmur, No Rub GI/Abdominal: Normal Bowel Sounds, Soft, Non-Tender, No Organomegaly, No Distention, No Abnormal Bruit, No Mass Extremities: Normal Inspection, Normal Range of Motion, Non-Tender, Normal Capillary Refill, No Pedal Edema Neurological: Alert, Oriented, CN II-XII Intact, Normal Cognition, Normal Gait, Normal Reflexes, No Motor/Sensory Deficits Psychiatric: Normal Affect, Normal Mood Skin Exam: Warm, Dry, Intact, Normal Color, No Rash Course - Vital Signs Text/Narrative:: Uneventful ED course. She will see her eye doctor in 2-3 days. She will use tylenol for pain relief and liquid tears prn to the eye for comfort. Return to ED if needed before seeing eye doctor in 2 days. Last Recorded V/S: Last Vital Signs Temp 36.8 C 08/18/17 20:26 Pulse 74 08/18/17 20:26 Resp 12 08/18/17 20:26 BP 135/66 08/18/17 20:26 Pulse Ox 94 L 08/18/17 20:26 - Orders/Labs/Meds Labs: Laboratory Tests 08/18/17 08/18/17 Range/Units 21:00 21:00 WBC 9.3 (4.0-11.0) K/uL RBC 3.20 L (3.80-5.80) M/uL Hgb 10.1 L D (11.5-16.5) g/dL Hct 30.3 L D (37.0-47.0) % MCV 95 (76-96) fL MCH 31.6 (27.0-32.0) pg MCHC 33.3 (31.0-35.0) g/dL RDW 17.4 H (11.0-16.0) % Plt Count 144 L D (150-500) K/uL MPV 11.3 H (6.0-10.0) fL Neut % (Auto) 79.0 H (45.0-70.0) % Lymph % (Auto) 10.7 L (20.0-40.0) % [place] % (Auto) 7.0 (3.0-10.0) % Eos % (Auto) 3.0 (1.0-5.0) % Baso % (Auto) 0.3 (0.0-0.5) % Neut # (Auto) 7.38 (2.00-7.50) K/uL Lymph # (Auto) 1.00 L (1.50-4.00) K/uL [place] # (Auto) 0.65 (0.20-0.80) K/uL Eos # (Auto) 0.28 (0.04-0.40) K/uL Baso # (Auto) 0.03 (0.02-0.10) K/uL PT 9.9 (9.0-11.5) sec INR 1.0 (1.0-3.5) Departure - Departure Time of Disposition: 22:19 Disposition: Home, Self-Care 01 Condition: Good Clinical Impression: Subconjunctival hemorrhage - Discharge Information Instructions: Subconjunctival Hemorrhage Referrals: PCP,None [Primary Care Provider] - Forms: ED Department Discharge Additional Instructions: Follow up with eye doctor on Sunday August 20, 2017.
== END 2017-08-18 21:25 | disposition home or self-care (01) ==
LOC: LB.ED 18:45
DX: H11.31 Conjunctival hemorrhage, right eye (principal); E78.00 Pure hypercholesterolemia, unspecified; I10 Essential (primary) hypertension; J44.9 Chronic obstructive pulmonary disease, unspecified; Z87.01 Personal history of pneumonia (recurrent); F41.9 Anxiety disorder, unspecified; E11.9 Type 2 diabetes mellitus without complications; D50.9 Iron deficiency anemia, unspecified; Z79.899 Other long term (current) drug therapy; Z79.4 Long term (current) use of insulin
CPT/HCPCS: 36415; 85025; 85610; 99283

== ENCOUNTER 2017-10-06 13:39 | Emergency (ER) | payer MEDICARE, OTHER ==
[2017-10-06] MEDS ORDERED: Sodium Chloride 0.9% 10 ML Syringe FLUSH PRN (14:01)
[2017-10-06] MEDS ORDERED: Heparin Sodium 5,000 Units/ML Vial ONE (16:55)
[2017-10-06] MEDS ORDERED: traMADol 50 MG Tab ONE (16:55)
[2017-10-06] MEDS ORDERED: Heparin Sodium/D5W 25,000 UNITS/500 ML BAG IV SCH (17:30)
[2017-10-06 17:39] VITALS: BP 157/65
--- NOTE | 2017-10-06 17:59 | EDM.PDOC ---
ED HPI GENERAL MEDICAL PROBLEM - General Chief Complaint: General Stated Complaint: SOB Time Seen by Provider: 10/06/17 14:10 Source of Information: Reports: Patient, Family History Limitations: Reports: No Limitations - History of Present Illness INITIAL COMMENTS - FREE TEXT/NARRATIVE: Patient is a 66 year old woman with multiple, complicated medical problems who became acutely short of breath today about an hour prior coming into the ED. Her gave her a nebulizer but it did not help her feel much better. No chest pain or palpitations, fever or chills but she does have some chest pressure, which she feels may be anxiety. She does not feel sick but she is very tired. 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, Other Medication(s) (Nebulization.) chest Pain Score (Numeric/FACES): 3 - Related Data Allergies Allergy/AdvReac Type Severity Reaction Status Date / Time No Known Allergies Allergy Verified 02/26/17 17:48 Home Meds: Home Meds Ipratropium/Albuterol Sulfate [Iprat-Albut 0.5-3(2.5) MG/3 ML] 2.5 mg IH Q4HR PRN 09/13/13 [History] Lisinopril 10 mg PO DAILY 09/13/13 [History] Nitroglycerin [Nitrostat] 0.4 mg SL Q5M PRN 09/13/13 [History] Omeprazole 20 mg PO DAILY 09/13/13 [History] Pregabalin [Lyrica] 150 mg PO BID 09/13/13 [History] Gabapentin [Neurontin] 1 cap PO BID 01/03/15 [History] Topiramate 1 tab PO DAILY 01/03/15 [History] Vit B12/Fa/Pyridoxine HCl/AA15 [Glycotrol] 1,000 mcg PO DAILY 01/03/15 [History] rOPINIRole [Requip] 4 mg PO BEDTIME 01/04/15 [History] Insulin Aspart [Novolog Flexpen] 5 unit SQ TIDMEALS 01/14/16 [History] Bumetanide 2 mg PO BID 09/15/16 [History] Carvedilol 25 mg PO BID 09/15/16 [History] Insulin Glargine,Hum.Rec.Anlog [Lantus Solostar] 20 unit SQ BID 09/15/16 [ History] Pregabalin [Lyrica] 1 tab PO BEDTIME 09/15/16 [History] atorvaSTATin Calcium [Atorvastatin Calcium] 1 tab PO DAILY 09/15/16 [History] traZODone 1 tab PO BEDTIME PRN 09/15/16 [History] traMADol [Ultram] 50 mg PO Q6HR PRN 09/29/16 [History] Aspirin [Ecotrin] 81 mg PO DAILY 10/20/16 [History] Clopidogrel [Plavix] 75 mg PO DAILY 10/20/16 [History] Docusate Sodium/Sennosides [Senna Plus] 1 each PO BID 10/20/16 [History] Isosorbide Mononitrate [Isosorbide Mononitrate ER] 30 mg PO DAILY 10/20/16 [ History] oxyCODONE HCl/Acetaminophen [Endocet 5-325 Tablet] 1 each PO BID 10/20/16 [ History] Past Medical History HEENT History: Reports: Other (See Below) 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 Cardiovascular History: Reports: Blood Clots/VTE/DVT, High Cholesterol, Hypertension, Pulmonary Hypertension, SOB on Exertion, Stents Respiratory History: Reports: COPD, Pneumonia, Recurrent, SOB Gastrointestinal History: Reports: Chronic Constipation Genitourinary History: Reports: Diabetic Nephropathy, UTI, Recurrent 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: Musculoskeletal History: Reports: Back Pain, Chronic, Fibromyalgia Neurological History: Reports: None, Migraines, Vertigo Psychiatric History: Reports: Anxiety Endocrine/Metabolic History: Reports: Diabetes, Type II, Obesity/BMI 30+ Hematologic History: Reports: Iron Deficiency, Other (See Below) Other Hematologic History: DVTs - Infectious Disease History Infectious Disease History: Reports: Chicken Pox, Measles, Mumps - Past Surgical History HEENT Surgical History: Reports: Cataract Surgery, Eye Surgery Cardiovascular Surgical History: Reports: Coronary Artery Stent Other Cardiovascular Surgeries/Procedures: 3 stents GI Surgical History: Reports: Appendectomy, Cholecystectomy Female Surgical History: Reports: None Endocrine Surgical History: Reports: None Neurological Surgical History: Reports: None Musculoskeletal Surgical History: Reports: None Dermatological Surgical History: Reports: None Social & Family History - Family History Family Medical History: Noncontributory HEENT: Reports: Cataract, Macular Degeneration Cardiac: Reports: HI, Stent Respiratory: Reports: Asthma, COPD GI: Reports: Other (See Below) Other GI Family History: cancer : Reports: Other (See Below) Other Family History: cancer OBGYN: Reports: Other (See Below) Other OBGYN Family History: not sure Musculoskeletal: Reports: Arthritis Neurological: Reports: Alzheimers Disease, Dementia, Migraines, Neuropathy, Peripheral Psychiatric: Reports: Anxiety Endocrine/Metabolic: Reports: Diabetes, type II, Obesity/MBI 30+ Hematologic: Reports: Anemia Oncologic: Reports: Bladder, Other (See Below) Other Oncologic Family History: stomach - Caffeine Use Caffeine Use: Reports: Tea - Living Situation & Occupation Living situation: Reports: Occupation: Unemployed ED ROS GENERAL - Review of Systems Review Of Systems: See Below Constitutional: Reports: Malaise HEENT: Reports: No Symptoms Respiratory: Reports: Shortness of Breath Cardiovascular: Reports: Chest Pain (Pressure) Endocrine: Reports: No Symptoms GI/Abdominal: Reports: No Symptoms : Reports: No Symptoms Musculoskeletal: Reports: No Symptoms Skin: Reports: No Symptoms Neurological: Reports: No Symptoms Psychiatric: Reports: No Symptoms Hematologic/Lymphatic: Reports: No Symptoms Immunologic: Reports: No Symptoms ED EXAM, GENERAL - Physical Exam Exam: See Below Exam Limited By: No Limitations General Appearance: Alert, WD/WN, No Apparent Distress Eye Exam: Bilateral Eye: EOMI, Normal Fundi, Normal Inspection, PERRL Ears: Normal External Exam, Normal Canal, Hearing Grossly Normal, Normal TMs Ear Exam: Bilateral Ear: Auricle Normal, Canal Normal, TM normal Nose: Normal Inspection, Normal Mucosa, No Blood Throat/Mouth: Normal Inspection, Normal Lips, Normal Teeth, Normal Gums, Normal Oropharynx, Normal Voice, No Airway Compromise Head: Atraumatic, Normocephalic Neck: Normal Inspection, Supple, Non-Tender, Full Range of Motion Respiratory/Chest: Decreased Breath Sounds Cardiovascular: Normal Peripheral Pulses, Regular Rate, Rhythm, No Edema, No Gallop, No JVD, No Murmur, No Rub GI/Abdominal: Distended Back Exam: Normal Inspection, Full Range of Motion, NT Extremities: Normal Inspection, Normal Range of Motion, Non-Tender, Normal Capillary Refill, No Pedal Edema Neurological: Alert, Oriented, CN II-XII Intact, Normal Cognition, Normal Gait, Normal Reflexes, No Motor/Sensory Deficits Psychiatric: Normal Affect, Normal Mood Skin Exam: Rash (Excoriations on legs.) Lymphatic: No Adenopathy EKG INTERPRETATION EKG Date: 10/06/17 Rhythm: NSR [place]: Normal P-Wave: Present QRS: Other (Left anterior fascicular block.) ST-T: Other (Nonspecific changes.) QT: Normal Comparison: No Change Course - Vital Signs Text/Narrative:: Patient did better when her oxygen was turned down to 1 liter by nasal cannula. She had elevated D-dimer and BNP and chronically elevated creatinine. She needs to have a VQ scan to rule out PE and she will have to be sent to [place], since, [facility] and [place] do not have an ability to do the study on the weekends. She was started on a Heparin Drip by protocol and she will be transported to [facility] for further evaluation and treatment. Last Recorded V/S: Last Vital Signs Temp 36.9 C 10/06/17 15:07 Pulse 71 10/06/17 17:38 Resp 18 10/06/17 17:38 BP 157/65 H 10/06/17 17:38 Pulse Ox 94 L 10/06/17 17:38 - Orders/Labs/Meds Orders: Active Orders 24 hr Category Date Time Status Cardiac Monitoring [RC] .As Directed Care 10/06/17 14:22 Active EKG Documentation Completion [RC] ASDIRECTED Care 10/06/17 13:57 Inactive EKG Documentation Completion [RC] STAT Care 10/06/17 13:56 Active Chest 2V [CR] Stat Exams 10/06/17 13:59 Taken Heparin Sodium/D5W [Heparin 25,000 Units in D5W 500 ML] Med 10/06/17 17:30 Active 25,000 units in 500 ml IV ASDIRECTED Sodium Chloride 0.9% [Saline Flush] Med 10/06/17 14:01 Active 10 ml FLUSH ASDIRECTED PRN Saline Lock Insert [OM.PC] Routine Oth 08/11/18 14:01 Ordered Medication Orders Heparin Sodium/Dextrose (Heparin 25,000 Units In D5w 500 Ml) 25,000 units in 500 mls @ 31.679 mls/hr IV ASDIRECTED ANNEL; Protocol Sodium Chloride (Saline Flush) 10 ml FLUSH ASDIRECTED PRN PRN Reason: Keep Vein Open Labs: Laboratory Tests 10/06/17 10/06/17 10/06/17 Range/Units 14:10 14:10 14:10 WBC 10.5 (4.0-11.0) K/uL RBC 2.83 L (3.80-5.80) M/uL Hgb 9.0 L (11.5-16.5) g/dL Hct 28.1 L (37.0-47.0) % MCV 99 H (76-96) fL MCH 31.8 (27.0-32.0) pg MCHC 32.0 (31.0-35.0) g/dL RDW 15.4 (11.0-16.0) % Plt Count 155 (150-500) K/uL MPV 11.6 H (6.0-10.0) fL Neut % (Auto) 80.9 H (45.0-70.0) % Lymph % (Auto) 10.0 L (20.0-40.0) % Charles % (Auto) 6.2 (3.0-10.0) % Eos % (Auto) 2.7 (1.0-5.0) % Baso % (Auto) 0.2 (0.0-0.5) % Neut # (Auto) 8.48 H (2.00-7.50) K/uL Lymph # (Auto) 1.05 L (1.50-4.00) K/uL Charles # (Auto) 0.65 (0.20-0.80) K/uL Eos # (Auto) 0.28 (0.04-0.40) K/uL Baso # (Auto) 0.02 (0.02-0.10) K/uL D-Dimer, Quantitative 867 H (0-400) ng/mL Sodium 138 (136-145) mmol/L Potassium 4.3 (3.5-5.1) mmol/L Chloride 103 (98-107) mmol/L Carbon Dioxide 29.7 (21.0-32.0) mmol/L Anion Gap 9.6 (5.0-15.0) mmol/L BUN 66 H* D (8-26) mg/dL Creatinine 2.04 H D (0.55-1.02) mg/dL Est Cr Clr Drug Dosing 21.16 mL/min Estimated GFR (MDRD) 24 L (>60) MLS/MIN BUN/Creatinine Ratio 32.4 H (6-25) Glucose 331 H D (74-100) mg/dL Calcium 8.4 L (8.5-10.1) mg/dL Total Bilirubin 0.2 D (0.0-1.0) mg/dL AST 17 (15-37) U/L ALT 22 (12-78) U/L Alkaline Phosphatase 137 H (46-116) U/L Troponin I < 0.017 (0.000-0.060) ng/mL B-Natriuretic Peptide (0-125) pg/mL Total Protein 6.5 (6.4-8.2) g/dL Albumin 2.3 L (3.4-5.0) g/dL Globulin 4.2 (2.2-4.2) g/dL Albumin/Globulin Ratio 0.6 L (0.8-2.0) 10/06/17 Range/Units 14:10 WBC (4.0-11.0) K/uL RBC (3.80-5.80) M/uL Hgb (11.5-16.5) g/dL Hct (37.0-47.0) % MCV (76-96) fL MCH (27.0-32.0) pg MCHC (31.0-35.0) g/dL RDW (11.0-16.0) % Plt Count (150-500) K/uL MPV (6.0-10.0) fL Neut % (Auto) (45.0-70.0) % Lymph % (Auto) (20.0-40.0) % Charles % (Auto) (3.0-10.0) % Eos % (Auto) (1.0-5.0) % Baso % (Auto) (0.0-0.5) % Neut # (Auto) (2.00-7.50) K/uL Lymph # (Auto) (1.50-4.00) K/uL Charles # (Auto) (0.20-0.80) K/uL Eos # (Auto) (0.04-0.40) K/uL Baso # (Auto) (0.02-0.10) K/uL D-Dimer, Quantitative (0-400) ng/mL Sodium (136-145) mmol/L Potassium (3.5-5.1) mmol/L Chloride (98-107) mmol/L Carbon Dioxide (21.0-32.0) mmol/L Anion Gap (5.0-15.0) mmol/L BUN (8-26) mg/dL Creatinine (0.55-1.02) mg/dL Est Cr Clr Drug Dosing mL/min Estimated GFR (MDRD) (>60) MLS/MIN BUN/Creatinine Ratio (6-25) Glucose (74-100) mg/dL Calcium (8.5-10.1) mg/dL Total Bilirubin (0.0-1.0) mg/dL AST (15-37) U/L ALT (12-78) U/L Alkaline Phosphatase (46-116) U/L Troponin I (0.000-0.060) ng/mL B-Natriuretic Peptide 2327 H D (0-125) pg/mL Total Protein (6.4-8.2) g/dL Albumin (3.4-5.0) g/dL Globulin (2.2-4.2) g/dL Albumin/Globulin Ratio (0.8-2.0) Meds: Medications Generic Name Dose Route Start Last Admin Trade Name Freq PRN Reason Stop Dose Admin Heparin Sodium/Dextrose 25,000 units in 500 mls @ 31.679 mls/hr 10/06/17 17: 30 Heparin 25,000 Units In D5w 500 Ml IV ASDIRECTED ANNEL Protocol 18 UNITS/KG/HR Sodium Chloride 10 ml 10/06/17 14:01 Saline Flush FLUSH ASDIRECTED PRN Keep Vein Open Departure - Departure Time of Disposition: 18:08 Disposition: DC/Tfer to Acute Hospital 02 Condition: Fair Clinical Impression: Dyspnea and respiratory abnormalities - Discharge Information - My Orders Last 24 Hours: My Active Orders 10/06/17 13:56 EKG Documentation Completion [RC] STAT 10/06/17 13:57 EKG Documentation Completion [RC] ASDIRECTED 10/06/17 13:59 Chest 2V [CR] Stat 10/06/17 14:01 Sodium Chloride 0.9% [Saline Flush] 10 ml FLUSH ASDIRECTED PRN Saline Lock Insert [OM.PC] Routine 10/06/17 14:22 Cardiac Monitoring [RC] .As Directed 10/06/17 17:30 Heparin Sodium/D5W [Heparin 25,000 Units in D5W 500 ML] 25,000 units in 500 ml IV ASDIRECTED - Assessment/Plan Last 24 Hours: My Active Orders 10/06/17 13:56 EKG Documentation Completion [RC] STAT 10/06/17 13:57 EKG Documentation Completion [RC] ASDIRECTED 10/06/17 13:59 Chest 2V [CR] Stat 10/06/17 14:01 Sodium Chloride 0.9% [Saline Flush] 10 ml FLUSH ASDIRECTED PRN Saline Lock Insert [OM.PC] Routine 10/06/17 14:22 Cardiac Monitoring [RC] .As Directed 10/06/17 17:30 Heparin Sodium/D5W [Heparin 25,000 Units in D5W 500 ML] 25,000 units in 500 ml IV ASDIRECTED
--- NOTE | 2017-10-06 19:48 | CR ---
CLINICAL DATA: Dyspnea and chest pressure. AP AND LATERAL CHEST, 06 OCTOBER 2017: Comparison is made to a prior exam dated 09 May 2017. The heart remains enlarged, unchanged. There is calcification of the aortic arch. The lungs are hyperexpanded. There is a linear density in the right lung base, consistent with linear atelectasis or fibrosis. There are mild atelectatic changes in both lung bases. The lungs are otherwise clear. No pneumothorax. No pleural effusions. Job: [id number] MTDD
--- OUTSIDE RECORDS SUMMARY | 2017-10-16 14:42 | XMSREPORT | Summary of Care ---
:1950 Author Organization [facility] Address [address] [place] [address] Phone Care Team Providers Name Role Phone Provider, No Attributed RESOURCE Attributed Provider Unavailable Ab Bolanos MD Primary Care Provider Reason for Referral Home Health Evaluation (Routine) Status Reason Specialty Diagnoses / Referred By Referred To Procedures Contact Contact New Request Continuity of Diagnoses Stented coronary artery Timmy Mccoy MD [address] [address] Scheduling Instructions This referral will be electronically faxed to the home health agency chosen above. Any other follow up with the home health agency should be done per facility policy. Reason for Visit Auth/Cert Status Reason Specialty Diagnoses / Procedures Referred By Contact Referred To Contact Encounter Details Date Type Department Care Team Description 10/06/2017 - Hospital Encounter [facility] Provider, [facility] Procedure CHF (congestive 10/10/2017 [facility] Suzette Kat MD [address] [place] [id number] heart failure) [id number] Hanna Ferrell MD [address] [place] [address] [place] [address] Timmy Mccoy MD [address] [place] [address] [phone] Javan Jiménez MD [address] [place] [address] [phone] Allergies Active Allergy Reactions Severity Noted Date Comments Hay Fever Other (Specify in 04/15/2013 Sneezing/coughing. Comments) Seasonal. Environmental Allergens Other (Specify in Low 04/15/2013 Sneezing/coughing. Comments) Seasonal. as of this encounter Medications Prescription Sig. Disp. Refills Start End Date Status Date traZODone (DESYREL) Take 50 mg by Active 50 mg tablet mouth At bedtime as needed (for insomnia) nitroglycerin Dissolve 1 tablet 25 tablet 5 Active (NITROSTAT) 0.4 mg under the tongue 4 sublingual Every 5 minutes as tabletIndications: needed for chest Exertional dyspnea, pain. CAD (coronary artery disease) albuterol-ipratropi Inhale 1 unit-dose Active um (DUO-NEB) by nebulization 2.5-0.5 mg/3 mL every 6 hours as inhalation solution needed for bronchospasm, shortness of breath or wheezing atorvaSTATin Take 40 mg by Active (LIPITOR) 40 mg mouth 1 time per tablet day. pregabalin (LYRICA) Take 150 mg by Active 150 mg capsule mouth in the morning, 150 mg in the afternoon, and 300 mg every night at bedtime rOPINIRole (REQUIP) Take 4 mg by mouth Active 4 mg tablet every night at bedtime. topiramate Take 50 mg by Active (TOPAMAX) 50 mg mouth 1 time per tablet day. carVEDilol (COREG) Take 25 mg by 1 Active 25 mg tablet mouth 2 times a 5 day with meals LANTUS SOLOSTARE Inject 20 Units 0 Active subcutaneous subcutaneously 1 5 injection solution time a day in the (pen) evening cyanocobalamin Take 1,000 mcg by Active (VITAMIN B-12) 1000 mouth 1 time per mcg tablet day insulin aspart Inject Active (NOVOLOG) subcutaneously 3 subcutaneous times a day with injection (pen) meals Inject 5 units with breakfast and lunch. Inject 7 units with dinner fluticasone [place] 1 spray into Active (FLONASE) 50 each nostril every mcg/spray nasal night at bedtime spray omeprazole Take 20 mg by Active (PRILOSEC) 20 mg mouth 2 times a capsule day mupirocin Apply to affected Active (BACTROBAN) 2 % area 1 time a day ointment as needed aspirin 81 mg Take 81 mg by Active enteric coated mouth 1 time per tablet day traMADol (ULTRAM) Take 1 tablet (50 30 tablet 0 Active 50 mg mg) by mouth every 7 tabletIndications: 6 hours as needed Chronic low back (pain) pain, unspecified back pain laterality, with sciatica presence unspecified bumetanide (BUMEX) Take 2 tablets (2 120 tablet 3 Active 1 mg mg) by mouth 2 7 tabletIndications: times a day Acute on chronic combined systolic and diastolic congestive heart failure isosorbide Take 1 tablet (30 90 tablet 4 10/22/19 Active mononitrate (IMDUR) mg) by mouth 1 7 18 30 mg SR tablet (24 time per day hr)Indications: Coronary artery disease involving [place] coronary artery of [place] heart without angina pectoris clopidogrel Take 1 tablet (75 30 tablet 11 Active (PLAVIX) 75 mg mg) by mouth 1 7 tabletIndications: time per day Coronary artery disease involving [place] coronary artery of [place] heart without angina pectoris gabapentin Take 300 mg by Active (NEURONTIN) 300 mg mouth 2 times a capsule day acetaminophen Take 650 mg by Active (TYLENOL) 325 mg mouth every 6 7 tablet hours as needed for mild pain, fever > (indicate temp) or headache miconazole Apply 30 g Active (DESENEX) 2 % POWD topically 7 amoxicillin-clavula TAKE 1 TABLET BY 0 Active jovon potassium MOUTH EVERY 12 8 (AUGMENTIN) 875-125 HOURS DAILY FOR 10 mg tablet DAYS docusate sodium Take 100 mg by Active (COLACE) 100 mg mouth 1 time per capsule day ferrous sulfate (65 Take 325 mg by 3 Active MG FE PER 325 MG mouth 1 time per 8 TABLET) 325 mg day tablet potassium chloride Take 10 mEq by 04/28/19 Active (KLOR-CON M10) 10 mouth 1 time a day 8 19 MEQ CR tablet in the morning sacubitril-valsarta Take 1 tablet by Active n (ENTRESTO) 49-51 mouth 2 times a MG tablet day metOLazone Take 5 mg by mouth Active (ZAROXOLYN) 5 mg 1 time a day in tablet the morning arformoterol Inhale 15 mcg by Active (BROVANA) 15 nebulization 2 MCG/2ML inhalation times a day solution lisinopril Take 10 mg by 10/11/19 Suspended (PRINIVIL, ZESTRIL) mouth 1 time per 18 10 mg tablet day. senna-docusate Take 1 tablet by 10/08/19 Discontinued sodium (EQ SENNA-S) mouth 2 times a 18 8.6-50 MG tablet day oxyCODONE-acetamino Take 1 tablet by 10/07/19 Discontinued phen (PERCOCET) mouth 2 times a 18 5-325 mg tablet day furosemide (LASIX) Take 20 mg by 10/11/19 Suspended 20 mg tablet mouth 7 18 ibuprofen (MOTRIN) Take 400 mg by 10/11/19 Suspended 400 mg tablet mouth 7 18 amoxicillin-clavula 0 10/07/19 Discontinued jovon potassium 7 18 (AUGMENTIN) 500-125 mg tablet as of this encounter Active Problems Problem Noted Date Pseudophakia OD 04/04/17 by MSD 04/05/2017 Last Assessment & Plan: Leydi is doing well status post Phaco with posterior chamber intraocular lens, OD. Acute on chronic respiratory failure 10/28/2016 Shortness of breath 10/20/2016 Elevated troponin 09/25/2016 CHF exacerbation 09/25/2016 Eye globe prosthesis, left eye 09/18/2016 Overview: In 2016 following painful eye from uncontrolled glaucoma. Surgery done at [facility] by Megan Boateng MD Last Assessment & Plan: This is not giving her any problems Anemia 06/05/2014 CHF (congestive heart failure) 06/05/2014 Chronic low back pain 06/05/2014 Edema extremities 06/05/2014 DVT (deep venous thrombosis) 06/05/2014 Exposure of orbital implant 01/27/2014 CAD (coronary artery disease) 04/25/2013 S/P drug eluting coronary stent placement 04/25/2013 Myopia with presbyopia, right Last Assessment & Plan: Changing glasses improves vision. Copy of prescription given to Leydi. As Leydi is a monocular patient, impact resistant lenses are advised. 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 Will follow off drops as of this encounter Resolved Problems Problem Noted Date Resolved Date Nuclear sclerosis of right eye 09/18/2016 04/05/2017 Last Assessment & Plan: Discussed options with the patient and wishes to proceed with cataract surgery on the right eye on 04/04/17 in [place]. Counseling, consent and IOL selected. Will shoot for plano OU. For the right eye will use Za [phone] +29.50. I did share with the patient that her surgery has a higher risk of complications because of her short eye, dense cataract and synechia. She seems to understand and wishes to proceed with surgery Confusion 09/14/2013 09/14/2013 Acute angle-closure glaucoma of left eye 08/11/2013 09/18/2016 Last Assessment & Plan: Her eye is still painful. intraocular pressure is fairly consistently around 40. I will have her continue Cosopt three times a day, latanoprost in the evening in her left eye. I will also add alphagan three times a day in the left eye. I'm not confident that this will significantly lower her pressure to the point where her eye will be comfortable. She has previously seen Yeyo Solomon MD and is status post trab with shunt in that eye. He did not feel like there is more he could offer Leydi and recommended if she needed further care to see Megan Boateng MD at [facility]. I will refer her to Dr. Boateng for further evaluation. Exertional dyspnea 04/25/2013 04/25/2013 Abnormal nuclear stress test 04/25/2013 04/25/2013 as of this encounter Social History Tobacco Use Types Packs/Day Years Used Date Former Smoker Cigarettes 0.01 28 Quit: 10/06/2016 Smokeless Tobacco: Never Used Comments: Quit 2 weeks ago Alcohol Use Drinks/Week oz/Week Comments Yes Vodka occasionally, about once a month Sex Assigned at Date Recorded Not on file as of this encounter Last Filed Vital Signs Vital Sign Reading Time Taken Blood Pressure 111/50 10/10/2017 11:23 AM CDT Pulse 64 10/10/2017 11:23 AM CDT Temperature 36.6 C (97.9 F) 10/10/2017 11:23 AM CDT Respiratory Rate 16 10/10/2017 11:23 AM CDT Oxygen Saturation 100% 10/10/2017 11:23 AM CDT Inhaled Oxygen Concentration - - Weight 89 kg (196 lb 4.8 oz) 10/10/2017 5:00 AM CDT Height 154.9 cm (5' 1") 10/06/2017 7:00 PM CDT Body Mass Index 37.09 10/10/2017 5:00 AM CDT in this encounter Functional Status Functional Status Response Date of Assessment Is the person deaf or does he/she have serious difficulty No 10/06/2017 hearing? Is this person blind or does he/she have difficulty No 10/06/2017 seeing even when wearing glasses? Do you have difficulty with walking, balance, climbing Yes 10/06/2017 stairs, or had a fall in the last 3 months? Does the patient have difficulty dressing or bathing? No 10/06/2017 Because of a physical, mental, or emotional condition; No 10/06/2017 does this person have difficulty doing errands alone such as visiting a doctor's office or shopping? Cognitive Status Response Date of Assessment Because of a physical, mental, or emotional condition; No 10/06/2017 does this person have serious difficulty concentrating, remembering, or making decisions? as of this encounter Discharge Instructions Tigist Rubio RN - 10/10/2017Heart Failure Discharge Instructions Diet: Low sodium (low salt) diet Fluid intake 2-3 liters daily unless otherwise advised Follow instructions from our dietitian if one visited you Activity: Plan time every day for walking or other activity. If you feel tired and short of breath, stop and rest. Continue activity when ready. Follow guidelines given by cardiac rehab and nursing staff. Treatments/Self Care: Weigh yourself daily at the same time of the day and with the same amount of clothing. Write down your weight every day and keep this record. Avoid NSAIDs or Non-Steroidal Anti-Inflammatory Drugs (ie: Advil, Ibuprofen, Motrin, etc.) Contact Your Doctor If You Have Any of These Symptoms: Sudden weight gain of 2 to 3 pounds in a day or 5 pounds in a week. This is a sign of fluid build-up. Swelling in feet , ankles, legs, or stomach area Shortness of breath or trouble breathing at rest Having to sleep with more pillows or sitting up Frequent or worsening cough A decrease in amount of urination Chest pain Confusion Questions about medications or other problems Review the Living Well with Heart Failure booklet for more information on caring for yourself or your loved one at home. in this encounter Progress Notes Chapin Fonseca MD - 10/10/2017 9:49 AM CDT Had RCA stent yesterday, she is feeling well today . Switch to oral diureti cs. She may be discharge d from my standpoint with follow-up with cardiolog y in [place] in 1 month. Ash Ellis Fnu, MD - 10/09/2017 1:31 PM CDTDictation #3 CSN:[id number] Timmy Mccoy MD - 10/08/2017 1:48 PM CDTDictation #2 CSN:[id number] Chapin Fonseca MD - 10/08/2017 8:45 AM CDT I saw and examined the pa elisa. She feels better, her urine output resulte d in a net -650 cc yester day. She remains slightl y orthopneic. No chest p ain. Echocardiography sh owed decreased ejection f raction which is likely a round baseline. Continue diuresis for 1 more day and get a Lexiscan Cardio lite stress test tomorrow please. She can do the resting images today. Chapin Fonseca MD Ti me spent today was 20 min utes examining patient an d coordinating care. Hanna Ferrell MD - 10/07/2017 6:06 PM CDTFormatting of this note may be different from the original. DAILY PROGRESS NOTE Leydi Santos is a 66yr old female admitted on 10/06/2017. SUBJECTIVE No CHEST PAIN HAS Gained over 10 pounds SOB with laying flat OBJECTIVE Current Vital Signs Temp: 97.5 F (36.4 C) BP: 121/65 Pulse: 62 O2 Device: NC - no humidity O2 Flow Rate (L/min): 2 l/min Resp: 20 Pain Ratin (out of 10) Weight: 90.2 kg (198 lb 13.7 oz) SpO2: 97 % Review of Systems - Constitutional ROS: negative Respiratory ROS: no cough,++ shortness of breath, or wheezing Cardiovascular ROS: see HPI Gastrointestinal ROS: negative Musculoskeletal ROS: negative Neurological ROS: negative Vitals Min/Max Last 24 Hours Patient Vitals for the past 24 hrs: BP Temp Pulse Resp SpO2 Height Weight 10/07/17 1450 121/65 97.5 F (36.4 C) 62 20 97 % - - 10/07/17 0717 142/61 97.8 F (36.6 C) 73 20 96 % - - 10/07/17 0325 141/78 98.4 F (36.9 C) 74 20 98 % - - 10/06/17 2325 154/67 98.2 F (36.8 C) 71 18 97 % - - 10/06/171999 - - - - - - 90.2 kg (198 lb 13.7 oz) 10/06/17 195 150/72 97.3 F (36.3 C) 67 16 97 % - - 10/06/17 1900 - - 61 - - 1.549 m (5' 1") 88 kg (194 lb) Intake and Out put last 24 hours Physical Exam General Appearance: alert, ill appearing, and in no distress Chest:,+ basilar rales or rhonchi, symmetric air entry Heart: normal rate, regular rhythm, normal S1, S2, no murmurs, rubs, clicks or gallops Abdomen: soft, nontender, nondistended, no masses or organomegaly Neurological: alert, oriented, normal speech, no focal findings or movement disorder noted Extremities: peripheral pulses normal, no pedal edema, no clubbing or cyanosis Skin: normal coloration and turgor, no rashes, no suspicious skin lesions noted Patient Lines/Drains/Airways Status Active Lines Name: Placement date: Placement time: Site: Days: Peripheral IV 10/23/16 Forearm Inner;Right 10/23/161929 Forearm 348 Peripheral IV 10/23/16 Axillary Left 10/23/161999 Axillary 348 Urinary Catheter 10/22/16 Kwok 10/22/168 349 Tracheal Tube 7.5 Cuffed 10/23/16 1740 Oral 349 Drainage/Feeding Tube (For additional Intake rows, add Row [id number]) 10/24/16 Nasoenteral suction (e.g. Murray Sump) Right Nasal 10/24/16 1640 Nasal 348 Current Medications furosemide (LASIX) injection solution 40 mg 40 mg IV 2 times a day diuretic 40 mg at 10/07/17 1552 sodium chloride 0.9% flush (adult) 10 mL 10 mL IV 2 times a day and prn 10 mL at 10/07/17 1000 acetaminophen (TYLENOL) tablet 650 mg 650 mg Oral Every 4 hours prn melatonin tablet 3 mg 3 mg Oral at bedtime senna-docusate sodium (SENOKOT-S;PERICOLACE) tablet 2 tablet 2 tablet Oral 2 times a day prn And bisacodyl (DULCOLAX) suppository 10 mg 10 mg Rectal 1 time a day prn And docusate sodium (THEREVAC-SB MINI;ENEMEEZ MINI) 283 MG enema 1 enema 1 enema Rectal 1 time a day prn ondansetron (ZOFRAN ODT) dispersible tablet 4 mg 4 mg Oral Every 4 hours prn And ondansetron (ZOFRAN) injection solution 4 mg 4 mg IV Every 4 hours prn enoxaparin (LOVENOX) subcutaneous injection solution 30 mg 30 mg Subcutaneous at bedtime aspirin enteric coated tablet 81 mg 81 mg Oral daily 81 mg at 10/07/17 1308 atorvaSTATin (LIPITOR) tablet 40 mg 40 mg Oral daily carVEDilol (COREG) tablet 25 mg 25 mg Oral 2 times a day with meals 25 mg at 10/07/17 1308 clopidogrel (PLAVIX) tablet 75 mg 75 mg Oral daily fluticasone (FLONASE) 50 mcg/spray 1 spray Each nostril 2 times a day 1 spray at 10/07/17 1308 insulin aspart (NovoLOG) SQ injection 5 Units Subcutaneous 3 times a day with meals 5 Units at 10/07/17 1314 isosorbide mononitrate (IMDUR) SR tablet (24 hr) 30 mg 30 mg Oral daily 30 mg at 10/07/17 1308 insulin glargine (LANTUS) SQ injection 22 Units Subcutaneous 2 times a day Stopped at 10/07/17 0528 omeprazole (priLOSEC) capsule 20 mg 20 mg Oral 2 times a day 20 mg at 10/07 1314 pregabalin (LYRICA) capsule 300 mg 300 mg Oral at bedtime rOPINIRole (REQUIP) tablet 4 mg 4 mg Oral at bedtime topiramate (TOPAMAX) tablet 50 mg 50 mg Oral daily 50 mg at 10/07/17 1308 senna-docusate sodium (SENOKOT-S;PERICOLACE) tablet 1 tablet 1 tablet Oral 2 times a day 1 tablet at 10/07/17 1315 traMADol (ULTRAM) tablet 50 mg 50 mg Oral Every 6 hours prn 50 mg at 1551 traZODone (DESYREL) tablet 50 mg 50 mg Oral at bedtime pregabalin (LYRICA) CAPS 150 mg 150 mg Oral Daily dextrose 50% IV solution 50 mL 25 g IV PRN per parameter glucagon for injection 1 mg vial 1 mg 1 mg Intramuscular PRN per parameter dextrose chewable tablet 16 g 4 tablet Oral PRN per parameter Or carbohydrate 15 g 15 g Oral PRN per parameter insulin aspart (NovoLOG) SQ correction scale (Adult) 2-8 Units Subcutaneous 3 times a day with meals 2 Units at 10/07/17 1314 Diagnostics and Labs Labs (Last day) 10/07/17 1004 - 10/06/171939 CARDIAC MARKERS 10/07/17 1004 10/07/17 0117 10/06/17193910/06/171939 CARDIAC MARKERS Troponin I 0.000-0.028 (ng/mL) 0.025 0.031 0.023 BNP 0-100 (pg/mL) 900 10/07/17 0526 - 10/06/171939 CBC 10/07/17 0526 10/06/171939 CBC WBC 4.0-11.0 (K/uL) 10.5 10.8 RBC 3.80-5.30 (M/uL) 2.84 3.01 Hemoglobin 11.5-15.8 (g/dL) 9.2 9.6 Hematocrit 35.0-45.0 (%) 27.6 29.4 MCV 80.0-98.0 (fL) 97.2 97.7 MCH 25.5-34.0 (pg) 32.4 31.9 MCHC 31.5-36.5 (g/dL) 33.3 32.7 RDW-CV 11.5-15.5 (%) 15.6 15.4 RDW-SD 35.5-50.0 (fl) 54.4 54.8 Platelet Count 140-400 (K/uL) 144 151 MPV 8.5-12.0 (fL) 11.4 11.3 10/07/17 05 - 10/06/171939 CHEMISTRY 10/07/17 0510/06/17193910/06/17193910/06/171939 CHEMISTRY Glucose 70-100 (mg/dL) 271 225 Sodium 135-145 (meq/L) 141 142 Potassium 3.5-5.3 (meq/L) 3.8 4.0 Chloride 99-110 (meq/L) 104 102 CO2 20-29 (meq/L) 27 31 Anion Gap with K 6-20 (meq/L) 14 13 BUN 6-22 (mg/dL) 60 60 Creatinine 0.60-1.10 (mg/dL) 1.86 1.78 BUN/Creatinine Ratio 10.0-25.0 32.3 33.7 Calcium 8.5-10.5 (mg/dL) 8.7 8.9 Corrected Calcium 8.5-10.5 (mg/dL) 9.5 9.6 Phosphorus 2.5-4.5 (mg/dL) 3.6 Bilirubin Total 0.2-1.2 (mg/dL) 0.2 Alkaline Phosphatase 30-150 (U/L) 121 ALT - SGPT 0-55 (U/L) 20 AST - SGOT 0-35 (U/L) 16 Protein Total 6.0-8.2 (g/dL) 6.5 Albumin 3.5-5.0 (g/dL) 3.0 3.1 CRP 0.0-8.0 (mg/L) 10.0 Lactic Acid 0.5-2.2 (mmol/L) 1.3 eGFR >=60 (mL/min/1.73m2) 33 34 eGFR Non- >=60 (mL/min/1.73m2) 27 28 10/06/171939 - 10/06/171939 DIFFERENTIAL 10/06/171939 DIFFERENTIAL Seg Neut Absolute 1.8-8.0 (K/uL) 8.4 Lymphocytes Absolute 0.8-4.1 (K/uL) 1.4 Monocytes Absolute 0.0-1.0 (K/uL) 0.7 Eosinophils Absolute 0.0-0.7 (K/uL) 0.3 Basophil Absolute 0.0-0.2 (K/uL) 0.0 Immature Granulocyte Absolute 0.00-0.06 (K/uL) 0.10 Neutrophils Abs. (Segs and Bands) (/uL) 8400 Neutrophils Percent (%) 77.5 Lymphocytes Percent (%) 13.0 Monocytes Percent (%) 6.1 Immature Granulocyte Percent (%) 0.9 Eosinophils Percent (%) 3.0 Basophil Percent (%) 0.4 10/06/171939 - 10/06/171939 GENERAL COAGULATION 10/06/17193910/06/171939 GENERAL COAGULATION APTT 24-35 (secs) 100 D-Dimer <=0.49 (ug/mL FEU) 0.77 10/07/17 1652 - 10/06/172012 GLUCOSE POINT OF CARE 10/07/17 1652 10/07/17 1202 10/06/17 2324 10/06/172012 GLUCOSE POINT OF CARE Glucose POC 70-100 (mg/dL) 221 162 280 190 10/07/17 1630 - 10/07/17 1630 URINALYSIS 10/07/17 1630 10/07/17 1630 URINALYSIS Color Urine Colorless, Yellow, Straw, Dark Yellow, Nancy Straw Clarity Urine Clear Clear Specific [place] 1.002-1.035 1.008 Glucose Urine Negative Negative Bilirubin Urine <2 mg/dL <2 mg/dL Ketone Urine Negative, 10 mg/dL Negative Blood Urine Negative Small pH Urine 5.0, 5.5, 6.0, 6.5, 7.0, 7.5, 8.0 6.0 Protein Urine Negative 100 mg/dL Nitrite Urine Negative Negative Leukocyte Esterase Urine Negative Negative Urobilinogen Urine 0.2 EU/dL, 1.0 EU/dL 0.2 EU/dL WBC Urine Negative, 0-2, 3-5 (/HPF) 0-2 RBC Urine Negative, 0-2 (/HPF) 6-10 Epithelial Cells Negative, Rare (0-1), Occ (2-5), Few (6-15) (/LPF) Few (6-15) Bacteria Negative, Rare (0-5), Few (6-30) (/HPF) Negative Cast, Hyaline Negative, 0-2 (/LPF) 0-2 10/07/17 05 - 10/06/171939 OTHER 10/07/17 0510/06/171939 OTHER [age] (Years) [age] I ASSESSMENT & PLAN 1. Exertional dyspnea with left-sided chest pain. will ask for cardiology consult, mild + troponin likely due to CHF . IV diurectics, and stress test when she is able to lay flat, she had a cath in April at [facility], moderate non obstructive CAD. 2. Acute kidney injury on chronic kidney disease stage 3. Baseline at 1.2. Likely cardiorenal , Recheck BMP in am. 3. History of coronary artery disease. On aspirin, Plavix, Coreg, Lipitor, and lisinopril. Lisinopril will need to be held given her renal failure. 4. Chronic systolic CHF. LVEF 45%. -- Continue Coreg. Hold lisinopril. Repeat echo. 5. Insulin-dependent type 2 diabetes mellitus, on Lantus and mealtime insulin. 6. Obstructive sleep apnea, on home oxygen 3 liters. 7. Dyslipidemia, on Lipitor. 8. Restless leg syndrome, on Requip. 9. Insomnia, on trazodone. 10. Neuropathy, on gabapentin. . Plan discussed with pt.in this encounter Plan of Treatment Name Priority Associated Diagnoses Date/Time EKG 12 LEAD STAT 10/09/2017 5:08 PM CDT EKG 12 LEAD TO BE DONE 3 HOURS Routine 10/09/2017 7:51 PM CDT POST CORONARY INTERVENTION Name Priority Associated Diagnoses Order Schedule RENAL FUNCTION PANEL Routine Early AM draw for labs until discontinued starting 10/07/2017, 4 completed Name Priority Associated Diagnoses Order Schedule CLINIC REFERRAL HOME Routine Stented coronary artery Expected: 10/10/2017, HEALTH ADULT ONE CHART Expires: 11/10/2018 Health Maintenance Due Date Last Done Comments Hemoglobin A1C Every 6 Months 1950 Hepatitis C Screening 1950 Microalbumin 1950 Diabetic Foot Exam 11/21/1959 Tetanus Vaccine 11/21/1967 Mammogram 1989 Colorectal Cancer Screening 11/21/1999 Zoster Vaccine (1 of 2 - RZV, 11/21/1999 Shingrix) Lipid Screening 04/25/2014 04/25/2013 DEXA/Heel Scan 2014 Pneumococcal 65yr+ Low/Med Risk (1 2014 of 2 - PCV13) Influenza Vaccine (#1) 2017 Ophthalmology Exam 03/06/2018 03/06/2017, 03/06/2017, 09/18/2016, Additional history exists as of this encounter Implants Implanted Type Area Wood Room Supervisor Device Expiration Model / Identifier Date Serial / Lot Iol Tecjose 3pc 5d 29.5 N [id number] - [id number] Right: [employer] & 08/11/2021 [id number] / Implanted: Qty: 1 on 04/04/2017 by Andrea Cross MD [employer]IOR [employer]ICE [id number] / CHAMBER as of this encounter Procedures Procedure Name Priority Date/Time Associated Comments Diagnosis GLUCOSE BY METER, Routine 10/10/2017 11:10 Results for this POCT AM CDT procedure are in the results section. RENAL FUNCTION PANEL Routine 10/10/2017 5:26 Results for this AM CDT procedure are in the results section. GLUCOSE BY METER, Routine 10/09/2017 9:32 Results for this POCT PM CDT procedure are in the results section. GLUCOSE BY METER, Routine 10/09/2017 5:30 Results for this POCT PM CDT procedure are in the results section. ACTIVATED CLOTTING Routine 10/09/2017 4:22 Results for this TIME POCT PM CDT procedure are in the results section. GLUCOSE BY METER, Routine 10/09/2017 11:03 Results for this POCT AM CDT procedure are in the results section. GLUCOSE BY METER, Routine 10/09/2017 6:06 Results for this POCT AM CDT procedure are in the results section. RENAL FUNCTION PANEL Routine 10/09/2017 5:18 Results for this AM CDT procedure are in the results section. GLUCOSE BY METER, Routine 10/08/2017 9:33 Results for this POCT PM CDT procedure are in the results section. GLUCOSE BY METER, Routine 10/08/2017 6:07 Results for this POCT PM CDT procedure are in the results section. GLUCOSE BY METER, Routine 10/08/2017 12:05 Results for this POCT PM CDT procedure are in the results section. RENAL FUNCTION PANEL Routine 10/08/2017 4:49 Results for this AM CDT procedure are in the results section. GLUCOSE BY METER, Routine 10/07/2017 8:52 Results for this POCT PM CDT procedure are in the results section. GLUCOSE BY METER, Routine 10/07/2017 4:52 Results for this POCT PM CDT procedure are in the results section. URINALYSIS Routine 10/07/2017 4:30 Results for this MICROSCOPIC PM CDT procedure are in the results section. URINALYSIS DIPSTICK Routine 10/07/2017 4:30 Results for this REFLEX TO MICROSCOPIC PM CDT procedure are in the results section. GLUCOSE BY METER, Routine 10/07/2017 12:02 Results for this POCT PM CDT procedure are in the results section. TROPONIN I Routine 10/07/2017 10:04 Results for this AM CDT procedure are in the results section. COMPLETE BLOOD COUNT Routine 10/07/2017 5:26 Results for this WITHOUT DIFFERENTIAL AM CDT procedure are in the results section. RENAL FUNCTION PANEL Routine 10/07/2017 5:26 Results for this AM CDT procedure are in the results section. TROPONIN I Timed Routine 10/07/2017 1:17 Results for this AM CDT procedure are in the results section. GLUCOSE BY METER, Routine 10/06/2017 11:24 Results for this POCT PM CDT procedure are in the results section. GLUCOSE BY METER, Routine 10/06/2017 8:13 Results for this POCT PM CDT procedure are in the results section. LAB ONLY-COMPLETE PATITO 10/06/2017 7:40 Results for this BLOOD COUNT WITH PM CDT procedure are in DIFFERENTIAL the results section. COLLECT AND HOLD SST Routine 10/06/2017 7:40 Results for this TOP TUBE PM CDT procedure are in the results section. PTT STAT 10/06/2017 7:40 Results for this PM CDT procedure are in the results section. D-DIMER QUANTITATIVE PATITO 10/06/2017 7:40 Results for this PM CDT procedure are in the results section. C-REACTIVE PROTEIN PATITO 10/06/2017 7:40 Results for this (INFLAMMATION) PM CDT procedure are in the results section. TROPONIN I Timed Routine 10/06/2017 7:40 Results for this PM CDT procedure are in the results section. LACTIC ACID PATITO 10/06/2017 7:40 Results for this PM CDT procedure are in the results section. COMPREHENSIVE PATITO 10/06/2017 7:40 Results for this METABOLIC PANEL PM CDT procedure are in the results section. COMPLETE BLOOD COUNT [facility] 10/06/2017 7:40 Results for this WITH DIFFERENTIAL PM CDT procedure are in the results section. BRAIN NATRIURETIC PATITO 10/06/2017 7:40 Results for this PEPTIDE PM CDT procedure are in the results section. in this encounter Results GLUCOSE BY METER, POCT (10/10/2017 11:10 AM) Component Value Ref Range Glucose POC 194 (H) 70 - 100 mg/dL Specimen Performing Laboratory Blood [facility] POINT OF CARE TESTING [address] [place] [address] RENAL FUNCTION PANEL (10/10/2017 5:26 AM) Component Value Ref Range Glucose 184 (H) 70 - 100 mg/dL BUN 68 (H) 6 - 22 mg/dL Creatinine 1.65 (H) 0.60 - 1.10 mg/dL BUN/Creatinine Ratio 41.2 (H) 10.0 - 25.0 Sodium 141 135 - 145 meq/L Potassium 4.7 3.5 - 5.3 meq/L Chloride 102 99 - 110 meq/L CO2 27 20 - 29 meq/L Anion Gap with K 17 6 - 20 meq/L Calcium 9.1 8.5 - 10.5 mg/dL Phosphorus 4.8 (H) 2.5 - 4.5 mg/dL Albumin 3.0 (L) 3.5 - 5.0 g/dL Corrected Calcium 9.9 8.5 - 10.5 mg/dL Age 66 Years eGFR Non- 31 (L) >=60 mL/min/1.73m2 eGFR 38 (L) >=60 mL/min/1.73m2 Specimen Performing Laboratory Blood [facility] [address] [facility] [place] [address] GLUCOSE BY METER, POCT (10/09/2017 9:32 PM) Component Value Ref Range Glucose POC 234 (H) 70 - 100 mg/dL Specimen Performing Laboratory Blood [facility] POINT OF CARE TESTING [address] [facility] [place] [address] GLUCOSE BY METER, POCT (10/09/2017 5:30 PM) Component Value Ref Range Glucose POC 318 (H) 70 - 100 mg/dL Specimen Performing Laboratory Blood [facility] POINT OF CARE TESTING [address] [facility] [place] [address] ACTIVATED CLOTTING TIME POCT (10/09/2017 4:22 PM) Component Value Ref Range Activated Clotting Time 219 (H) 100 - 150 Secs Specimen Performing Laboratory Blood [facility] POINT OF CARE TESTING [address] [facility] [place] [address] GLUCOSE BY METER, POCT (10/09/2017 11:03 AM) Component Value Ref Range Glucose POC 235 (H) 70 - 100 mg/dL Specimen Performing Laboratory Blood [facility] POINT OF CARE TESTING [address] [facility] [place] [address] NM NUCLEAR STRESS TEST (10/09/2017 10:38 AM) Specimen Performing Laboratory LAB Narrative Name: LEYDI SANTOS : 1950/66Y/F NM NUCLEAR STRESS TEST 10/09/2017 10:38:00 INDICATION:Chest pain, acute coronary syndrome suspect ORDERING PROVIDER: Chapin Fonseca M.D. Protocol: The patient received Lexiscan infusion per protocol. The patient also received 27.5 mCi of technetium 99m sestamibi intravenously for the resting images on October 08, 2017, and 26.4 mCi of technetium 99m sestamibi intravenously for the stress images on October 09, 2017. Baseline electrocardiogram revealed atrial fibrillation with low voltage and nonspecific T-wave abnormalities. There were no diagnostic ST changes with Lexiscan infusion. Perfusion imaging findings: Unfortunately, significant attenuation artifact was noted on this examination. Attenuation correction helped somewhat; however, there was a persistent anterior wall perfusion abnormality, mostly in the vic-md-[id number] segments on the stress images and more diffuse, but milder on the resting images. Overall, the anterior and apical perfusion abnormality appeared to be worse on the stress images suggestive of possible ischemia in the LAD territory. There was another more severe but smaller defect in the jaund-qv-uly inferolateral wall suggestive of ischemia in the left circumflex territory. Surprisingly, on the gated images, the left ventricular ejection fraction was normal, but this may have been an over estimate due to technical quality of the study. In any event, besides a hypokinetic basal inferolateral wall, the rest of the myocardial wall motion was normal. Calculated ejection fraction was normal at 75%. IMPRESSION: 1. Technically suboptimal study; however, multi-vessel coronary artery disease with a perfusion abnormality in the inferolateral, as well as anterior wall suspected. See above for details. 2. Normal left ventricular systolic function with possible mild hypokinesis of the basal inferolateral wall. 3. Nondiagnostic electrocardiographic component of the test due to the pharmacological nature of the stress. Chapin Fonseca M.D., Cardiology/[id number] Job ID/Trans ID:[id number] Doc ID:[id number] COOPERER COOPERER CSN: [id number] Order Phys:NADEEN HERNANDEZ MR#/FRANCES#: [id number] Order ID: [id number] Admit Date:10/06/[address] [facility] RADIOLOGY REPORT [facility] GLUCOSE BY METER, POCT (10/09/2017 6:06 AM) Component Value Ref Range Glucose POC 170 (H) 70 - 100 mg/dL Specimen Performing Laboratory Blood [facility] POINT OF CARE TESTING [address] [facility] [place] [address] RENAL FUNCTION PANEL (10/09/2017 5:18 AM) Component Value Ref Range Glucose 204 (H) 70 - 100 mg/dL BUN 58 (H) 6 - 22 mg/dL Creatinine 1.75 (H) 0.60 - 1.10 mg/dL BUN/Creatinine Ratio 33.1 (H) 10.0 - 25.0 Sodium 143 135 - 145 meq/L Potassium 4.5 3.5 - 5.3 meq/L Chloride 100 99 - 110 meq/L CO2 36 (H) 20 - 29 meq/L Anion Gap with K 12 6 - 20 meq/L Calcium 9.7 8.5 - 10.5 mg/dL Phosphorus 5.0 (H) 2.5 - 4.5 mg/dL Albumin 3.1 (L) 3.5 - 5.0 g/dL Corrected Calcium 10.4 8.5 - 10.5 mg/dL Age 66 Years eGFR Non- 29 (L) >=60 mL/min/1.73m2 eGFR 35 (L) >=60 mL/min/1.73m2 Specimen Performing Laboratory Blood [facility] [address] [facility] [place] [address] GLUCOSE BY METER, POCT (10/08/2017 9:33 PM) Component Value Ref Range Glucose POC 302 (H) 70 - 100 mg/dL Specimen Performing Laboratory Blood [facility] POINT OF CARE TESTING [address] [place] [address] GLUCOSE BY METER, POCT (10/08/2017 6:07 PM) Component Value Ref Range Glucose POC 294 (H) 70 - 100 mg/dL Specimen Performing Laboratory Blood [facility] POINT OF CARE TESTING [address] [place] [address] GLUCOSE BY METER, POCT (10/08/2017 12:05 PM) Component Value Ref Range Glucose POC 231 (H) 70 - 100 mg/dL Specimen Performing Laboratory Blood [facility] POINT OF CARE TESTING [address] [place] [address] RENAL FUNCTION PANEL (10/08/2017 4:49 AM) Component Value Ref Range Glucose 224 (H) 70 - 100 mg/dL BUN 54 (H) 6 - 22 mg/dL Creatinine 1.61 (H) 0.60 - 1.10 mg/dL BUN/Creatinine Ratio 33.5 (H) 10.0 - 25.0 Sodium 140 135 - 145 meq/L Potassium 4.0 3.5 - 5.3 meq/L Chloride 100 99 - 110 meq/L CO2 31 (H) 20 - 29 meq/L Anion Gap with K 13 6 - 20 meq/L Calcium 9.3 8.5 - 10.5 mg/dL Phosphorus 4.0 2.5 - 4.5 mg/dL Albumin 3.1 (L) 3.5 - 5.0 g/dL Corrected Calcium 10.0 8.5 - 10.5 mg/dL Age 66 Years eGFR Non- 32 (L) >=60 mL/min/1.73m2 eGFR 39 (L) >=60 mL/min/1.73m2 Specimen Performing Laboratory Blood [facility] [address] [place] [address] GLUCOSE BY METER, POCT (10/07/2017 8:52 PM) Component Value Ref Range Glucose POC 320 (H) 70 - 100 mg/dL Specimen Performing Laboratory Blood [facility] POINT OF CARE TESTING [address] [place] [address] GLUCOSE BY METER, POCT (10/07/2017 4:52 PM) Component Value Ref Range Glucose POC 221 (H) 70 - 100 mg/dL Specimen Performing Laboratory Blood [facility] POINT OF CARE TESTING [address] [place] [address] URINALYSIS MICROSCOPIC (10/07/2017 4:30 PM) Component Value Ref Range WBC Urine 0-2 Negative, 0-2, 3-5 /HPF RBC Urine 6-10 (A) Negative, 0-2 /HPF Epithelial Cells Few (6-15) Negative, Rare (0-1), Occ (2-5), Few (6-15) /LPF Bacteria Negative Negative, Rare (0-5), Few (6-30) /HPF Cast, Hyaline 0-2 Negative, 0-2 /LPF Specimen Performing Laboratory Urine - Clean Catch [facility] [address] [facility] [address] [place] [address] Narrative Microscopic exam performed.Elements present are reported above. URINALYSIS DIPSTICK REFLEX TO MICROSCOPIC (10/07/2017 4:30 PM) Component Value Ref Range Color Urine Straw Colorless, Yellow, Straw, Dark Yellow, Nancy Clarity Urine Clear Clear Glucose Urine Negative Negative Bilirubin Urine <2 mg/dL <2 mg/dL Ketone Urine Negative Negative, 10 mg/dL Specific Jenison 1.008 1.002 - 1.035 Blood Urine Small (A) Negative pH Urine 6.0 5.0, 5.5, 6.0, 6.5, 7.0, 7.5, 8.0 Protein Urine 100 mg/dL (A) Negative Urobilinogen Urine 0.2 EU/dL 0.2 EU/dL, 1.0 EU/dL Nitrite Urine Negative Negative Leukocyte Esterase Urine Negative Negative Specimen Performing Laboratory Urine - Clean Catch [facility] [address] [facility] [place] [address] [place] [address] GLUCOSE BY METER, POCT (10/07/2017 12:02 PM) Component Value Ref Range Glucose POC 162 (H) 70 - 100 mg/dL Specimen Performing Laboratory Blood [facility] POINT OF CARE TESTING [address] [place] [address] TROPONIN I (10/07/2017 10:04 AM) Component Value Ref Range Troponin I 0.025 0.000 - 0.028 ng/mL Specimen Performing Laboratory Blood [facility] [address] [facility] [address] [place], [place] [address], [place] [address] ECHO ADULT COMPLETE (10/07/2017 9:21 AM) Narrative Patient: LEYDI SANTOS MR#:[id number] Exam Date:10/07/2017 Transthoracic Echocardiogram [facility] [address] [place], [id number] : 142 /61 mmHg HR:65 bpm : 1950Exam Location:Bedside Height:61.00 "(154.9 cm) Age: 66 year(s)[facility].( 88.00 kg) Gender:FemalePatient Status: InpatienBSA: 1.86 m2 [address] Assistant:ANDREIA JERNIGAN RDCS (, ) RVT Reading Physician:CHAPIN FONSECA MD Ordering Physician: SUZETTE KAT MD Procedure Indication(s):Chest Pain Examination:TTE Complete 2D(m-mode) , Complete Spectral Doppler, Color Doppler Clinical History Comment:CABG x3 03/2016 Conclusions Left Ventricle: The ejection fraction is visually estimated to be 40 %. Thewall segments are hypokinetic. Right Ventricle: Pulmonary artery systolic pressure is measured at 45 mmHg. Pulmonary Artery: Mild pulmonary artery hypertension. Pericardium: Small pericardial effusion (Posterior). Comparison Study Comparison Date: 09/25/2016 Comparison Study: Transthoracic Echocardiogram There was no significant change from prior echo Findings Left Ventricle: Normal left ventricular size. Normal left ventricular wall thickness. Mildly reduced left ventricular systolic function. The ejection fraction is visually estimated to be 40 %. The basal inferior, basal inferolateral, basal anterolateral, mid inferior, mid inferolateral, mid anterolateral, apical inferior and apical lateral wall segments are hypokinetic. Grade 2 left ventricular diastolic dysfunction. Left Atrium: Dilated left atrium. Aortic Valve: The aortic valve is tricuspid. Mild aortic cuspal thickening. No significant aortic regurgitation. No aortic stenosis. Mitral Valve: Normal mitral valve structure. There is mild mitral annular calcification. Mild mitral regurgitation. No mitral stenosis. IAS: No gross evidence of shunt flow seen; however the possibility of a PFO cannot be completely ruled out. Right Ventricle: Normal right ventricular size. Normal right ventricular systolic function. Normal right ventricular wall thickness. Pulmonary artery systolic pressure is measured at 45 mmHg. Pulmonary Artery: Mild pulmonary artery hypertension. Right Atrium: Dilated right atrium. Tricuspid Valve: Normal tricuspid valve structure. Mild tricuspid regurgitation. Pulmonic Valve: Normal pulmonary valve structure. No significant pulmonary regurgitation. No pulmonary stenosis. IVC: Normal IVC size with normal respirophasic changes. Pericardium: Small pericardial effusion (Posterior). No pleural effusion. Measurements Left Ventricle Aortic Valve LabelValueNormal Value LabelValueNormal Value LVDd, 2D53.1 mmLVOT Vmax 85 cm/s LVDs, 2D46 mmAV Vmax 162 cm/s IVSd, 2D10.6 mmLVOTd 16 mm LVPWd, 2D 9.3 mm LVOT VTI19.6 cm FS, 2D13.37 %LVOT PGmax3 mmHg Cardiac Output2.54 L/min AV Pisfe131 cm/s Cardiac Index 1.37 AV VTI31.7 cm L/min/m-sq AV PGmax10 mmHg Left Atrium AV PGmean 6 mmHg LabelValueNormal Value TON (Vmax)1.1 cm-sq LADs Long.56 mmAV Vmax, Auliqsn089 cm/s Aorta Mitral Valve LabelValueNormal Value LabelValueNormal Value Ao Asc33 mmMV E Vmax 116 cm/s Great Vessels MV A Vmax 89 cm/s LabelValueNormal Value MV E/A1.3 PVein S 46 cm/sMV E/E' lateral 20.5 PVein D 32 cm/sMV E/E' qotwgh93.7 S/D Ratio 1.4 MV Dec Time 135 ms Heart Rate MV E' septal0.1 cm/s LabelValueNormal Value MV E' lateral 0.1 cm/s Heart Rate65 bpm Tricuspid Valve LabelValueNormal Value TR Vmax 309 cm/s TR Pmax 42 mmHg RA Pressure 3 mmHg RVSP45 mmHg Pulmonic Valve LabelValueNormal Value PV Vmax 71 cm/s PV PGmax2 mmHg (No Signature Object) Wall Motion Scores -1 - Not Scored, 0 - Unknown, 1 - Normal or hyperkinesia,2 - Hypokinesia, 3 - Akinesia, 4 - Dyskinesia, 5 - Aneurysm Procedure Note Interface, Inc Results No Pull Forward - 10/07/2017 4:22 PM CDT Patient: LEYDI SANTOS MR#: [id number] Exam Date: 10/07/2017 Transthoracic Echocardiogram [facility] [address] [place] [address] BP: 142/61 mmHg HR: 65 bpm : 1950 Exam Location: Bedside Height: 61.00 "(154.9 cm) Age: 66 year(s) Patient Room: 4 Weight: 194 lbs.(88.00 kg) Gender: Female Patient Status: Inpatien BSA: 1.86 m2 [address] Assistant: ANDREIA JERNIGAN RDCS (PE, FE) RVT Reading Physician: CHAPIN FONSECA MD Ordering Physician: SUZETTE KAT MD Procedure Indication(s): Chest Pain Examination: TTE Complete 2D(m-mode), Complete Spectral Doppler, Color Doppler Clinical History Comment: CABG x3 03/2016 Conclusions Left Ventricle: The ejection fraction is visually estimated to be 40 %. The wall segments are hypokinetic. Right Ventricle: Pulmonary artery systolic pressure is measured at 45 mmHg. Pulmonary Artery: Mild pulmonary artery hypertension. Pericardium: Small pericardial effusion (Posterior). Comparison Study Comparison Date: 09/25/2016 Comparison Study: Transthoracic Echocardiogram There was no significant change from prior echo Findings Left Ventricle: Normal left ventricular size. Normal left ventricular wall thickness. Mildly reduced left ventricular systolic function. The ejection fraction is visually estimated to be 40 %. The basal inferior, basal inferolateral, basal anterolateral, mid inferior, mid inferolateral, mid anterolateral, apical inferior and apical lateral wall segments are hypokinetic. Grade 2 left ventricular diastolic dysfunction. Left Atrium: Dilated left atrium. Aortic Valve: The aortic valve is tricuspid. Mild aortic cuspal thickening. No significant aortic regurgitation. No aortic stenosis. Mitral Valve: Normal mitral valve structure. There is mild mitral annular calcification. Mild mitral regurgitation. No mitral stenosis. IAS: No gross evidence of shunt flow seen; however the possibility of a PFO cannot be completely ruled out. Right Ventricle: Normal right ventricular size. Normal right ventricular systolic function. Normal right ventricular wall thickness. Pulmonary artery systolic pressure is measured at 45 mmHg. Pulmonary Artery: Mild pulmonary artery hypertension. Right Atrium: Dilated right atrium. Tricuspid Valve: Normal tricuspid valve structure. Mild tricuspid regurgitation. Pulmonic Valve: Normal pulmonary valve structure. No significant pulmonary regurgitation. No pulmonary stenosis. IVC: Normal IVC size with normal respirophasic changes. Pericardium: Small pericardial effusion (Posterior). No pleural effusion. Measurements Left Ventricle Aortic Valve Label Value Normal Value Label Value Normal Value LVDd, 2D 53.1 mm LVOT Vmax 85 cm/s LVDs, 2D 46 mm AV Vmax 162 cm/s IVSd, 2D 10.6 mm LVOTd 16 mm LVPWd, 2D 9.3 mm LVOT VTI 19.6 cm FS, 2D 13.37 % LVOT PGmax 3 mmHg Cardiac Output 2.54 L/min AV Vmean 109 cm/s Cardiac Index 1.37 AV VTI 31.7 cm L/min/m-sq AV PGmax 10 mmHg Left Atrium AV PGmean 6 mmHg Label Value Normal Value TON (Vmax) 1.1 cm-sq LADs Long. 56 mm AV Vmax, Caliper 162 cm/s Aorta Mitral Valve Label Value Normal Value Label Value Normal Value Ao Asc 33 mm MV E Vmax 116 cm/s Great Vessels MV A Vmax 89 cm/s Label Value Normal Value MV E/A 1.3 PVein S 46 cm/s MV E/E' lateral 20.5 PVein D 32 cm/s MV E/E' septal 22.7 S/D Ratio 1.4 MV Dec Time 135 ms Heart Rate MV E' septal 0.1 cm/s Label Value Normal Value MV E' lateral 0.1 cm/s Heart Rate 65 bpm Tricuspid Valve Label Value Normal Value TR Vmax 309 cm/s TR Pmax 42 mmHg RA Pressure 3 mmHg RVSP 45 mmHg Pulmonic Valve Label Value Normal Value PV Vmax 71 cm/s PV PGmax 2 mmHg (No Signature Object) Wall Motion Scores -1 - Not Scored, 0 - Unknown, 1 - Normal or hyperkinesia, 2 - Hypokinesia, 3 - Akinesia, 4 - Dyskinesia, 5 - Aneurysm RENAL FUNCTION PANEL (10/07/2017 5:26 AM) Component Value Ref Range Glucose 271 (H) 70 - 100 mg/dL BUN 60 (H) 6 - 22 mg/dL Creatinine 1.86 (H) 0.60 - 1.10 mg/dL BUN/Creatinine Ratio 32.3 (H) 10.0 - 25.0 Sodium 141 135 - 145 meq/L Potassium 3.8 3.5 - 5.3 meq/L Chloride 104 99 - 110 meq/L CO2 27 20 - 29 meq/L Anion Gap with K 14 6 - 20 meq/L Calcium 8.7 8.5 - 10.5 mg/dL Phosphorus 3.6 2.5 - 4.5 mg/dL Albumin 3.0 (L) 3.5 - 5.0 g/dL Corrected Calcium 9.5 8.5 - 10.5 mg/dL Age 66 Years eGFR Non- 27 (L) >=60 mL/min/1.73m2 eGFR 33 (L) >=60 mL/min/1.73m2 Specimen Performing Laboratory Blood [facility] [address] [facility] [address] [place] [address] COMPLETE BLOOD COUNT WITHOUT DIFFERENTIAL (10/07/2017 5:26 AM) Component Value Ref Range WBC 10.5 4.0 - 11.0 K/uL RBC 2.84 (L) 3.80 - 5.30 M/uL Hemoglobin 9.2 (L) 11.5 - 15.8 g/dL Hematocrit 27.6 (L) 35.0 - 45.0 % MCV 97.2 80.0 - 98.0 fL MCH 32.4 25.5 - 34.0 pg MCHC 33.3 31.5 - 36.5 g/dL RDW-CV 15.6 (H) 11.5 - 15.5 % RDW-SD 54.4 (H) 35.5 - 50.0 fl Platelet Count 144 140 - 400 K/uL MPV 11.4 8.5 - 12.0 fL Specimen Performing Laboratory Blood [address] [address] TROPONIN I (10/07/2017 1:17 AM) Component Value Ref Range Troponin I 0.031 (H) 0.000 - 0.028 ng/mL Specimen Performing Laboratory Blood [facility] [address] [facility] [address] [place] [address] GLUCOSE BY METER, POCT (10/06/2017 11:24 PM) Component Value Ref Range Glucose POC 280 (H) 70 - 100 mg/dL Specimen Performing Laboratory Blood [facility] POINT OF CARE TESTING [address] [place] [address] GLUCOSE BY METER, POCT (10/06/2017 8:13 PM) Component Value Ref Range Glucose POC 190 (H) 70 - 100 mg/dL Specimen Performing Laboratory Blood [facility] POINT OF CARE TESTING [address] [place] [address], [place] [address] COLLECT AND HOLD SST TOP TUBE (10/06/2017 7:40 PM) Component Value Ref Range Collect and Hold Specimen Status Comment: RECEIVED Specimen Performing Laboratory Blood [address] [place] [address] LAB ONLY-COMPLETE BLOOD COUNT WITH DIFFERENTIAL (10/06/2017 7:40 PM) Component Value Ref Range WBC 10.8 4.0 - 11.0 K/uL RBC 3.01 (L) 3.80 - 5.30 M/uL Hemoglobin 9.6 (L) 11.5 - 15.8 g/dL Hematocrit 29.4 (L) 35.0 - 45.0 % MCV 97.7 80.0 - 98.0 fL MCH 31.9 25.5 - 34.0 pg MCHC 32.7 31.5 - 36.5 g/dL RDW-CV 15.4 11.5 - 15.5 % RDW-SD 54.8 (H) 35.5 - 50.0 fl Platelet Count 151 140 - 400 K/uL MPV 11.3 8.5 - 12.0 fL Seg Neut Absolute 8.4 (H) 1.8 - 8.0 K/uL Lymphocytes Absolute 1.4 0.8 - 4.1 K/uL Monocytes Absolute 0.7 0.0 - 1.0 K/uL Eosinophils Absolute 0.3 0.0 - 0.7 K/uL Basophil Absolute 0.0 0.0 - 0.2 K/uL Immature Granulocyte Absolute 0.10 (H) 0.00 - 0.06 K/uL Neutrophils Abs. (Segs and Bands) 8400 /uL Neutrophils Percent 77.5 % Lymphocytes Percent 13.0 % Monocytes Percent 6.1 % Immature Granulocyte Percent 0.9 % Eosinophils Percent 3.0 % Basophil Percent 0.4 % Specimen Performing Laboratory Blood [facility] [place] [address] [facility] [address] [place] [address] PTT (10/06/2017 7:40 PM) Component Value Ref Range APTT 100 (H) 24 - 35 secs Specimen Performing Laboratory Blood [facility] [address] [facility] [address] [place] [address] C-REACTIVE PROTEIN (INFLAMMATION) (10/06/2017 7:40 PM) Component Value Ref Range CRP 10.0 (H) 0.0 - 8.0 mg/L Specimen [place] [address] D-DIMER QUANTITATIVE (10/06/2017 7:40 PM) Component Value Ref Range D-Dimer 0.77 (H) <=0.49 ug/mL FEU Specimen [place] [address] Narrative If D-Dimer is less than 0.50 ug/mL FEU, PE or DVT is not likely. Increases in D-Dimer concentration observed with thromboembolic events can be variable due to localization, size, and age of the thrombus. Therefore, a thromboembolic event cannot be diagnosed with certainty on the basis of the reference range, and thrombosis and/or embolism is not completely excluded by a normal value.D-Dimer may also be elevated for a variety of disorders including: Advanced age, , coronary disease, cancer, liver disease, infection, inflammation, hematoma, DIC, trauma, post-surgery, diabetes, thrombolytic therapy, stress, and generalized hospitalization.D-Dimer levels may be decreased in patients on anticoagulant therapy. BRAIN NATRIURETIC PEPTIDE (10/06/2017 7:40 PM) Component Value Ref Range BNP 900 (H) 0 - 100 pg/mL Specimen Per[place] [address] TROPONIN I (10/06/2017 7:40 PM) Component Value Ref Range Troponin I 0.023 0.000 - 0.028 ng/mL Specimen Per[place] [address] LACTIC ACID (10/06/2017 7:40 PM) Component Value Ref Range Lactic Acid 1.3 0.5 - 2.2 mmol/L Specimen Per[place] [address] COMPREHENSIVE METABOLIC PANEL (10/06/2017 7:40 PM) Component Value Ref Range Glucose 225 (H) 70 - 100 mg/dL BUN 60 (H) 6 - 22 mg/dL Creatinine 1.78 (H) 0.60 - 1.10 mg/dL BUN/Creatinine Ratio 33.7 (H) 10.0 - 25.0 Sodium 142 135 - 145 meq/L Potassium 4.0 3.5 - 5.3 meq/L Chloride 102 99 - 110 meq/L CO2 31 (H) 20 - 29 meq/L Anion Gap with K 13 6 - 20 meq/L Calcium 8.9 8.5 - 10.5 mg/dL Protein Total 6.5 6.0 - 8.2 g/dL Albumin 3.1 (L) 3.5 - 5.0 g/dL Alkaline Phosphatase 121 30 - 150 U/L AST - SGOT 16 0 - 35 U/L ALT - SGPT 20 0 - 55 U/L Bilirubin Total 0.2 0.2 - 1.2 mg/dL Corrected Calcium 9.6 8.5 - 10.5 mg/dL Age 66 Years eGFR Non- 28 (L) >=60 mL/min/1.73m2 eGFR 34 (L) >=60 mL/min/1.73m2 Specimen Performing Laboratory Blood [address] [address] COMPLETE BLOOD COUNT WITH DIFFERENTIAL (10/06/2017 7:40 PM) Specimen Performing Laboratory Blood Narrative The following orders were created for panel order COMPLETE BLOOD COUNT WITH DIFFERENTIAL. Procedure Abnormality Status --------- ------ LAB ONLY-COMPLETE BLOOD ...[[id number]]AbnormalFinal result Please view results for these tests on the individual orders. in this encounter Visit Diagnoses Diagnosis Stented coronary artery - Primary Postsurgical percutaneous transluminal coronary angioplasty status CHF (congestive heart failure) Congestive heart failure, unspecified in this encounter Administered Medications Medication Order MAR Action Action Date Dose Rate Site aspirin chewable tablet 81 mg Given 10/10/2017 08:17 CDT 81 mg 81 mg, Oral, Daily, First dose on Sun10/10/17 at 0900, Until Discontinued, Post-Procedure (Cath) atorvaSTATin (LIPITOR) tablet 40 mg Given 10/08/2017 08:13 CDT 40 mg 40 mg, Oral, DAILY, First dose on Sun10/07/17 at 1230, Until Discontinued Given 10/09/2017 08:31 CDT 40 mg Given 10/10/2017 08:17 CDT 40 mg carVEDilol (COREG) tablet 25 mg Given 10/09/2017 08:31 CDT 25 mg 25 mg, Oral, Two times a day with meals, First dose on 10/07/17 at 1230, Until Discontinued, Take with food. Hold for SBP less than 100 Hold for HR less than 60 Given 10/09/2017 18:09 CDT 25 mg Given 10/10/2017 08:17 CDT 25 mg clopidogrel (PLAVIX) tablet 75 mg Given 10/10/2017 08:17 CDT 75 mg 75 mg, Oral, Daily, 365 doses, First dose on Sun10/10/17 at 0900, Last dose on Sun10/09/18 at 0900, Post-Procedure (Cath) enoxaparin (LOVENOX) subcutaneous injection Given 10/07/2017 20:40 CDT 30 mg solution 30 mg 30 mg, Subcutaneous, Bedtime, First dose on 10/06/17 at 2100, Until Discontinued, To avoid the loss of drug when using the 30 mg and 40 mg prefilled syringes, do not expel the air bubble from the syringe before the injection. Administration should be alternated between the left and right anterolateral and left and right posterolateral abdominal wall. The whole length of the needle should be introduced into a skin fold held between the thumb and forefinger; the skin fold should be held throughout the injection. To minimize bruising, do not rub the injection site after completion of the injection. Given 10/08/2017 21:39 CDT 30 mg Given 10/09/2017 21:44 CDT 30 mg fluticasone (FLONASE) 50 mcg/spray Given 10/09/2017 08:34 CDT 1 spray 1 spray, Each nostril, Two times a day, First dose on 10/06/17 at 2100, Until Discontinued, use as directed Given 10/09/2017 21:45 CDT 1 spray Given 10/10/2017 08:19 CDT 1 spray furosemide (LASIX) injection solution 40 mg Given 10/09/2017 08:31 CDT 40 mg 40 mg, IV, Two times a day diuretic, First dose on 10/07/17 at 1115, Until Discontinued, 4 mL Given 10/09/2017 17:08 CDT 40 mg Given 10/10/2017 08:20 CDT 40 mg insulin aspart (NovoLOG) SQ correction scale Given 10/09/2017 18:09 CDT 10 Units (Adult) 2-12 Units, Subcutaneous, Three times a day with meals, First dose on Sun10/08/17 at 1810, Until Discontinued, 0.12 mL, MEDIUM DOSE insulin aspart (NovoLOG) subcutaneous correction scale Premeal Blood Glucose=Insulin Dose 150-199 2 units 200-249 4 units 250-299 7 units 300-349 10 units Over 349 12 units Given 10/10/2017 08:19 CDT 2 Units Given 10/10/2017 11:33 CDT 2 Units insulin aspart (NovoLOG) SQ injection Given 10/09/2017 18:09 CDT 15 Units 15 Units, Subcutaneous, Three times a day with meals, First dose on Sun10/09/17 at 1730, Until Discontinued, 0.15 mL Given 10/10/2017 08:19 CDT 15 Units Given 10/10/2017 11:33 CDT 15 Units insulin glargine (LANTUS) SQ injection Given 10/09/2017 21:44 CDT 30 Units 30 Units, Subcutaneous, Two times a day, First dose on Sun10/09/17 at 2100, Until Discontinued, 0.3 mL, Do not hold. Call provider if blood glucose less than 100 mg/dl, if patient changed to NPO or if tube feedings stopped. Given 10/10/2017 08:18 CDT 30 Units isosorbide mononitrate (IMDUR) SR tablet (24 hr) Given 10/08/2017 08:13 CDT 30 mg 30 mg 30 mg, Oral, DAILY, First dose on 10/07/17 at 1230, Until Discontinued, Tablet may be broken in half, but should not be crushed or chewed. Hold SBP <90 Given 10/09/2017 08:32 CDT 30 mg Given 10/10/2017 08:17 CDT 30 mg melatonin tablet 3 mg Given 10/07/2017 20:39 CDT 3 mg 3 mg, Oral, Bedtime, First dose on 10/06/17 at 2100, Until Discontinued, If inadequate response in 60 minutes, may proceed to next choice option or, if no other options, contact provider. Given 10/08/2017 21:39 CDT 3 mg Given 10/09/2017 21:44 CDT 3 mg omeprazole (priLOSEC) capsule 20 mg Given 10/09/2017 08:31 CDT 20 mg 20 mg, Oral, Two times a day, First dose on 10/06/17 at 2100, Until Discontinued, Swallow cap whole. Do not crush, chew or open. Given 10/09/2017 21:44 CDT 20 mg Given 10/10/2017 08:17 CDT 20 mg pregabalin (LYRICA) CAPS 150 mg Given 10/08/2017 08:13 CDT 150 mg 150 mg, Oral, Daily, First dose on 10/07/17 at 0900, Until Discontinued Given 10/09/2017 08:31 CDT 150 mg Given 10/10/2017 08:18 CDT 150 mg pregabalin (LYRICA) capsule 300 mg Given 10/07/2017 20:41 CDT 300 mg 300 mg, Oral, Bedtime, First dose on 10/06/17 at 2100, Until Discontinued Given 10/08/2017 21:39 CDT 300 mg Given 10/09/2017 21:44 CDT 300 mg rOPINIRole (REQUIP) tablet 4 mg Given 10/07/2017 20:41 CDT 4 mg 4 mg, Oral, Bedtime, First dose on 10/06/17 at 2100, Until Discontinued Given 10/08/2017 21:39 CDT 4 mg Given 10/09/2017 21:44 CDT 4 mg senna-docusate sodium (SENOKOT-S;PERICOLACE) Given 10/09/2017 08:31 CDT 1 tablet tablet 1 tablet 1 tablet, Oral, Two times a day, First dose on 10/06/17 at 2100, Until Discontinued Given 10/09/2017 21:45 CDT 1 tablet Given 10/10/2017 08:18 CDT 1 tablet sodium chloride 0.9% flush (adult) 10 mL Given 10/09/2017 08:34 CDT 10 mL 10 mL, IV, Two times a day and prn, First dose on 10/06/17 at 2100, Until Discontinued, 10 mL, Flush IV line as scheduled and as often as necessary before and after meds. Given 10/09/2017 21:45 CDT 10 mL Given 10/10/2017 08:20 CDT 10 mL topiramate (TOPAMAX) tablet 50 mg Given 10/08/2017 08:13 CDT 50 mg 50 mg, Oral, DAILY, First dose on 10/07/17 at 1230, Until Discontinued, Topamax tablets should be swallowed whole and should not be chewed due to bitter taste. They may be crushed, mixed with water, and given immediately. Given 10/09/2017 08:31 CDT 50 mg Given 10/10/2017 08:17 CDT 50 mg traMADol (ULTRAM) tablet 50 mg Given 10/08/2017 19:03 CDT 50 mg 50 mg, Oral, Every six hours prn, Starting 10/06/17 at 2046, Until Discontinued, moderate pain, Recommended maximum daily dose of [id number] mg. Recommended maximum daily dose in patients 75 years or [id number] mg. Given 10/09/2017 05:33 CDT 50 mg Given 10/10/2017 11:32 CDT 50 mg traZODone (DESYREL) tablet 50 mg Given 10/07/2017 20:39 CDT 50 mg 50 mg, Oral, Bedtime, First dose on 10/06/17 at 2100, Until Discontinued Given 10/08/2017 21:39 CDT 50 mg Given 10/09/2017 21:44 CDT 50 mg Medication Order MAR Action Action Date Dose Rate Site 99mTc-Cardiolite 25 Given 10/08/2017 11:20 27.5 millicuries Right Forearm millicurie CDT Top IV 25 millicurie, IV, Now imaging, 1 dose, Starting 10/08/17 at 1144, Until 10/08/17 at 1120 99mTc-Cardiolite 27 Given 10/09/2017 09:13 CDT 26.4 millicuries Left Hand Top millicurie IV 27 millicurie, IV, Now imaging, 1 dose, Starting Sun10/09/17 at 0920, Until Sun10/09/17 at 0913 aspirin chewable tablet 243 mg Given 10/09/2017 15:26 CDT 243 mg 243 mg, Oral, One time, 1 dose, Sun10/09/17 at 1520, Prep Orders (Cath) if inpatient - floor RN to release, Patient to receive 325 mg aspirin prior to procedure If patient currently taking aspirin at home and has taken their dose today prior to procedure: administer aspirin dosage so that total amount prior to procedure equals 325 mg aspirin enteric coated tablet 81 mg Given 10/07/2017 13:08 CDT 81 mg 81 mg, Oral, DAILY, First dose on Sun10/07/17 at 1230, Until Discontinued, Tablet should be swallowed whole and not be divided, crushed or chewed. Given 10/08/2017 08:13 CDT 81 mg Given 10/09/2017 08:31 CDT 81 mg clopidogrel (PLAVIX) tablet 75 mg Given 10/08/2017 08:13 CDT 75 mg 75 mg, Oral, DAILY, First dose on Sun10/07/17 at 0900, Until Discontinued Given 10/09/2017 08:32 CDT 75 mg fentaNYL 100 mcg/2 mL preservative free Given 10/09/2017 16:09 CDT 50 mcg injection solution 25-300 mcg 25-300 mcg, IV, PRN per parameter, Starting Sun10/09/17 at 1500, Until Sun10/09/17 at 1638, other (Specify), sedation for cardiac catheterization, 6 mL, Pre-Procedure (Cath), procedural area to release, For sedation under direction provider privileged to perform sedation. Do not give on the floor. heparin (porcine) injection solution Given 10/09/2017 16:25 CDT 4,000 Units 0-12,000 Units 0-12,000 Units, IV, Administer in Card[facility] [employer]ding [facility]im[facility], 1 dose, Sun10/09/17 at 1630, 12 mL, Under the direction of the provider in CCL. Do not give on the floor. insulin aspart (NovoLOG) SQ correction scale Given 10/07/2017 18:30 CDT 3 Units (Adult) 2-8 Units, Subcutaneous, Three times a day with meals, First dose on Sun10/07/17 at 0730, Until Discontinued, 0.08 mL, LOW DOSE insulin aspart (NovoLOG) subcutaneous correction scale Premeal Blood Glucose=Insulin Dose 150-199 2 units 200-249 3 units 250-299 5 units 300-349 7 units Over 349 8 units Given 10/08/2017 08:14 CDT 3 Units Given 10/08/2017 13:52 CDT 3 Units insulin aspart (NovoLOG) SQ injection Given 10/07/2017 18:30 CDT 5 Units 5 Units, Subcutaneous, Three times a day with meals, First dose on Sun10/07/17 at 0730, Until Discontinued, 0.05 mL Given 10/08/2017 08:14 CDT 5 Units Given 10/08/2017 13:52 CDT 5 Units insulin aspart (NovoLOG) SQ injection Given 10/08/2017 19:04 CDT 10 Units 10 Units, Subcutaneous, Three times a day with meals, First dose on 10/08/17 at 1730, Until Discontinued, 0.1 mL Given 10/09/2017 11:19 CDT 10 Units insulin glargine (LANTUS) SQ injection Given 10/07/2017 21:08 CDT 22 Units 22 Units, Subcutaneous, Two times a day, First dose on 10/06/17 at 2100, Until Discontinued, 0.22 mL, Do not hold. Call provider if blood glucose less than 100 mg/dl, if patient changed to NPO or if tube feedings stopped. Given 10/08/2017 08:14 CDT 22 Units insulin glargine (LANTUS) SQ injection Given 10/08/2017 21:38 CDT 25 Units 25 Units, Subcutaneous, Two times a day, First dose on 10/08/17 at 2100, Until Discontinued, 0.25 mL, Do not hold. Call provider if blood glucose less than 100 mg/dl, if patient changed to NPO or if tube feedings stopped. Given 10/09/2017 10:11 CDT 25 Units iohexol (OMNIPAQUE) 350 mg/mL solution 85 mL Given 10/09/2017 16:49 CDT 85 mL 85 mL, Intra-arterial, One time, 1 dose, 10/09/17 at 1650, 100 mL lidocaine PF (XYLOCAINE-MPF) 1 % preservative free Given 10/09/2017 16:09 CDT 1 mL injection solution 0-40 mL 0-40 mL, Subcutaneous, Administer in Cardiac Welding Estimator, 1 dose, Sun10/09/17 at 1540, 60 mL, Given by provider in CCL. Do not give on the floor. midazolam (VERSED) injection solution 1-20 mg Given 10/09/2017 16:09 CDT 1 mg 1-20 mg, IV, PRN per parameter, Starting Sun10/09/17 at 1500, Until Tu10/09/17 at 1638, other (Specify), sedation for cardiac catheterization, 20 mL, Pre-Procedure (Cath), procedural area to release, For sedation under direction provider privileged to perform sedation Do not give on the floor regadenoson (LEXISCAN) syringe 0.4 mg Given 10/09/2017 09:13 CDT 0.4 mg 0.4 mg, IV, One time, 1 dose, 10/09/17 at 0900, 5 mL, Pre-procedure ([facility]), procedural area to release, Over 10-20 seconds For administration in [facility] sodium chloride 0.9% (bolus) IV Given 10/06/2017 20:44 CDT 1,000 mL 999 mL/ hr solution 1,000 mL 1,000 mL, IV, at 999 mL/hr, Bolus, 1 dose, 10/06/17 at 2130, 1,000 mL verapamil-hEParin in normal saline (radial cocktail) Given 10/09/2017 16:11 CDT Intra-arterial, Administer in Cardiac Welding Estimator, 1 dose, 10/09/17 at 1540, 10 mL, Under the direction of the provider in CCL. Do not give on the floor. in this encounter
== END 2017-10-06 17:50 ==
LOC: LB.ED 13:39
DX: R06.00 Dyspnea, unspecified (principal); S80.812A Abrasion, left lower leg, initial encounter; S80.811A Abrasion, right lower leg, initial encounter; J44.9 Chronic obstructive pulmonary disease, unspecified; E66.9 Obesity, unspecified; E11.40 Type 2 diabetes mellitus with diabetic neuropathy, unspecified; I10 Essential (primary) hypertension; E11.21 Type 2 diabetes mellitus with diabetic nephropathy; Z79.899 Other long term (current) drug therapy
CPT/HCPCS: 36415; 71046; 80053; 83880; 84484; 85025; 85379; 93005; 99284; 99285-25; A9270-GY; J1644

== ENCOUNTER 2018-04-10 13:05 | Emergency (ER) | payer MEDICARE, OTHER | END 2018-04-10 13:09 | disposition other institution (70) | LOC: LB.ED 13:05 | DX: Z13.9 Encounter for screening, unspecified (principal) | CPT/HCPCS: 36415; 80048; 85025; 99285; A0425; A0429 ==

== ENCOUNTER 2018-07-08 13:23 | Inpatient (IN) | payer MEDICARE, OTHER ==
[2018-07-08 15:03] LABS: HEMOGLOBIN A1C 9.5 % (4.5-6.2)
--- NOTE | 2018-07-08 15:27 | EDM.PDOC ---
ED HPI GENERAL MEDICAL PROBLEM - General Chief Complaint: General Stated Complaint: ILL Time Seen by Provider: 07/08/18 14:30 Source of Information: Reports: Patient, Family History Limitations: Reports: No Limitations - History of Present Illness INITIAL COMMENTS - FREE TEXT/NARRATIVE: This is a 67yo F with multiple co-morbidities and a lengthy past medical history including metastatic carcinoma here for feeling unwell and unable to get out of bed herself. She fell last night was was helped back into bed by EMT that arrived in her home from a 911 call. She returns today with worsening symptoms and pain. She denies chest pain but has pain all over. She has chronic shortness of breath and uses 3L 24 hours a day. She has multiple sores and skin lesions from prior falls and what appears to be heel ulcers as well. We will need to further evaluate decubitus ulcerations. Onset: Gradual Duration: Chronic, Getting Worse Location: Reports: Generalized Severity: Severe Improves with: Reports: None Worsens with: Reports: Movement Associated Symptoms: Reports: Loss of Appetite, Malaise, Nausea/Vomiting, Shortness of Breath, Weakness - Related Data Allergies Allergy/AdvReac Type Severity Reaction Status Date / Time No Known Allergies Allergy Verified 07/08/18 14:17 Home Meds: Home Meds Ipratropium/Albuterol Sulfate [Iprat-Albut 0.5-3(2.5) MG/3 ML] 2.5 mg IH Q4HR PRN 09/13/13 [History] Lisinopril 10 mg PO DAILY 09/13/13 [History] Nitroglycerin [Nitrostat] 0.4 mg SL Q5M PRN 09/13/13 [History] Omeprazole 20 mg PO DAILY 09/13/13 [History] Pregabalin [Lyrica] 150 mg PO BID 09/13/13 [History] Gabapentin [Neurontin] 1 cap PO BID 01/03/15 [History] Topiramate 1 tab PO DAILY 01/03/15 [History] Vit B12/Fa/Pyridoxine HCl/AA15 [Glycotrol] 1,000 mcg PO DAILY 01/03/15 [History] rOPINIRole [Requip] 4 mg PO BEDTIME 01/04/15 [History] Insulin Aspart [Novolog Flexpen] 5 unit SQ TIDMEALS 11/18/16 [History] Bumetanide 2 mg PO BID 09/15/16 [History] Carvedilol 25 mg PO BID 09/15/16 [History] Insulin Glargine,Hum.Rec.Anlog [Lantus Solostar] 20 unit SQ BID 09/15/16 [ History] Pregabalin [Lyrica] 1 tab PO BEDTIME 09/15/16 [History] atorvaSTATin Calcium [Atorvastatin Calcium] 1 tab PO DAILY 09/15/16 [History] traZODone 1 tab PO BEDTIME PRN 09/15/16 [History] traMADol [Ultram] 50 mg PO Q6HR PRN 09/29/16 [History] Aspirin [Ecotrin] 81 mg PO DAILY 10/20/16 [History] Clopidogrel [Plavix] 75 mg PO DAILY 10/20/16 [History] Docusate Sodium/Sennosides [Senna Plus] 1 each PO BID 10/20/16 [History] Isosorbide Mononitrate [Isosorbide Mononitrate ER] 30 mg PO DAILY 10/20/16 [ History] oxyCODONE HCl/Acetaminophen [Endocet 5-325 Tablet] 1 each PO BID 10/20/16 [ History] Past Medical History HEENT History: Reports: Other (See Below) 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 Cardiovascular History: Reports: Blood Clots/VTE/DVT, High Cholesterol, Hypertension, Pulmonary Hypertension, SOB on Exertion, Stents Respiratory History: Reports: COPD, Pneumonia, Recurrent, SOB Gastrointestinal History: Reports: Chronic Constipation Genitourinary History: Reports: Diabetic Nephropathy, UTI, Recurrent [employer]IVER History: Reports: Musculoskeletal History: Reports: Back Pain, Chronic, Fibromyalgia Neurological History: Reports: Migraines, Vertigo Psychiatric History: Reports: Anxiety, Depression Endocrine/Metabolic History: Reports: Diabetes, Type II, Obesity/BMI 30+ Hematologic History: Reports: Iron Deficiency, Other (See Below) Other Hematologic History: DVTs - Infectious Disease History Infectious Disease History: Reports: Chicken Pox, Measles, Mumps - Past Surgical History HEENT Surgical History: Reports: Cataract Surgery, Eye Surgery Cardiovascular Surgical History: Reports: Coronary Artery Stent Other Cardiovascular Surgeries/Procedures: 3 stents GI Surgical History: Reports: Appendectomy, Cholecystectomy Female Surgical History: Reports: None Endocrine Surgical History: Reports: None Neurological Surgical History: Reports: None Musculoskeletal Surgical History: Reports: None Dermatological Surgical History: Reports: None Social & Family History - Family History Family Medical History: Noncontributory HEENT: Reports: Cataract, Macular Degeneration Cardiac: Reports: PA, Stent Respiratory: Reports: Asthma, COPD GI: Reports: Other (See Below) Other GI Family History: cancer : Reports: Other (See Below) Other Family History: cancer OBGYN: Reports: Other (See Below) Other OBGYN Family History: not sure Musculoskeletal: Reports: Arthritis Neurological: Reports: Alzheimers Disease, Dementia, Migraines, Neuropathy, Peripheral Psychiatric: Reports: Anxiety Endocrine/Metabolic: Reports: Diabetes, type II, Obesity/MBI 30+ Hematologic: Reports: Anemia Oncologic: Reports: Bladder, Other (See Below) Other Oncologic Family History: stomach - Tobacco Use Smoking Status *Q: Never Smoker Second Hand Smoke Exposure: No - Caffeine Use Caffeine Use: Reports: Coffee, Soda, Tea - Recreational Drug Use Recreational Drug Use: No - Living Situation & Occupation Living situation: Reports: Occupation: Unemployed ED ROS GENERAL - Review of Systems Review Of Systems: ROS reveals no pertinent complaints other than HPI. ED EXAM, GENERAL - Physical Exam Exam: See Below Exam Limited By: No Limitations General Appearance: Alert, WD/WN, Moderate Distress Eye Exam: Left Eye: Other (strabismus) Ears: Normal External Exam Nose: Normal Inspection Throat/Mouth: Normal Inspection Head: Atraumatic, Normocephalic Neck: Normal Inspection Respiratory/Chest: Crackles, Rhonchi Cardiovascular: Normal Peripheral Pulses, Regular Rate, Rhythm Peripheral Pulses: 2+: Dorsalis Pedis (L), Dorsalis Pedis (R) GI/Abdominal: Normal Bowel Sounds, Soft, Other (obese) Back Exam: Normal Inspection Extremities: Other (multiple wounds and heel ulcerations and wounds from falls and chaffing of the heels) Neurological: Confused, Slow to Respond Psychiatric: Flat Affect Skin Exam: Decubitus, Other (heel wounds, leg wounds from prior falls) Course - Vital Signs Last Recorded V/S: Last Vital Signs Temp 36.9 C 07/08/18 14:35 Pulse 98 07/08/18 14:35 Resp 18 07/08/18 14:35 BP 122/58 L 07/08/18 14:35 Pulse Ox 90 L 07/08/18 14:35 - Orders/Labs/Meds Orders: Active Orders 24 hr Category Date Time Status Patient Status [ADT] Routine ADT 07/08/18 15:16 Ordered Oxygen Therapy [RC] PRN Care 07/08/18 15:16 Ordered Up With Assistance [RC] ASDIRECTED Care 07/08/18 15:16 Ordered Vital Signs [RC] Q4H Care 07/08/18 15:16 Ordered Regular Diet [DIET] Diet 07/08/18 Dinner Ordered Chest 1V Frontal [CR] Stat Exams 07/08/18 14:01 Taken Resuscitation Status Routine Resus Stat 07/08/18 15:16 Ordered Labs: Laboratory Tests 07/08/18 07/08/18 07/08/18 Range/Units 14:00 14:25 14:25 WBC 9.8 (4.0-11.0) K/uL RBC 3.27 L (3.80-5.80) M/uL Hgb 9.9 L (11.5-16.5) g/dL Hct 32.0 L (37.0-47.0) % MCV 98 H (76-96) fL MCH 30.3 (27.0-32.0) pg MCHC 30.9 L (31.0-35.0) g/dL RDW 18.5 H (11.0-16.0) % Plt Count 107 L (150-500) K/uL MPV 12.2 H (6.0-10.0) fL Neut % (Auto) 89.8 H (45.0-70.0) % Lymph % (Auto) 3.3 L (20.0-40.0) % [place] % (Auto) 6.7 (3.0-10.0) % Eos % (Auto) 0.1 L (1.0-5.0) % Baso % (Auto) 0.1 (0.0-0.5) % Neut # (Auto) 8.81 H (2.00-7.50) K/uL Lymph # (Auto) 0.32 L (1.50-4.00) K/uL [place] # (Auto) 0.66 (0.20-0.80) K/uL Eos # (Auto) 0.01 L (0.04-0.40) K/uL Baso # (Auto) 0.01 L (0.02-0.10) K/uL PT 13.3 H D (9.0-11.5) sec INR 1.4 D (1.0-3.5) Sodium (136-145) mmol/L Potassium (3.5-5.1) mmol/L Chloride (98-107) mmol/L Carbon Dioxide (21.0-32.0) mmol/L Anion Gap (5.0-15.0) mmol/L BUN (8-26) mg/dL Creatinine (0.55-1.02) mg/dL Est Cr Clr Drug Dosing Estimated GFR (MDRD) (>60) MLS/MIN BUN/Creatinine Ratio (6-25) Glucose (74-100) mg/dL Hemoglobin A1c 9.5 H (4.5-6.2) % Calcium (8.5-10.1) mg/dL Magnesium (1.8-2.4) mg/dL Total Bilirubin (0.0-1.0) mg/dL AST (15-37) U/L ALT (12-78) U/L Alkaline Phosphatase (46-116) U/L Total Protein (6.4-8.2) g/dL Albumin (3.4-5.0) g/dL Globulin (2.2-4.2) g/dL Albumin/Globulin Ratio (0.8-2.0) TSH, Ultra Sensitive (0.358-3.740) uIU/mL 07/08/18 Range/Units 14:25 WBC (4.0-11.0) K/uL RBC (3.80-5.80) M/uL Hgb (11.5-16.5) g/dL Hct (37.0-47.0) % MCV (76-96) fL MCH (27.0-32.0) pg MCHC (31.0-35.0) g/dL RDW (11.0-16.0) % Plt Count (150-500) K/uL MPV (6.0-10.0) fL Neut % (Auto) (45.0-70.0) % Lymph % (Auto) (20.0-40.0) % [place] % (Auto) (3.0-10.0) % Eos % (Auto) (1.0-5.0) % Baso % (Auto) (0.0-0.5) % Neut # (Auto) (2.00-7.50) K/uL Lymph # (Auto) (1.50-4.00) K/uL [place] # (Auto) (0.20-0.80) K/uL Eos # (Auto) (0.04-0.40) K/uL Baso # (Auto) (0.02-0.10) K/uL PT (9.0-11.5) sec INR (1.0-3.5) Sodium 149 H (136-145) mmol/L Potassium 4.0 (3.5-5.1) mmol/L Chloride 103 (98-107) mmol/L Carbon Dioxide 33.2 H (21.0-32.0) mmol/L Anion Gap 16.8 H (5.0-15.0) mmol/L BUN 78 H* D (8-26) mg/dL Creatinine 2.93 H D (0.55-1.02) mg/dL Est Cr Clr Drug Dosing TNP Estimated GFR (MDRD) 16 L (>60) MLS/MIN BUN/Creatinine Ratio 26.6 H (6-25) Glucose 132 H D (74-100) mg/dL Hemoglobin A1c (4.5-6.2) % Calcium 8.2 L (8.5-10.1) mg/dL Magnesium 2.3 (1.8-2.4) mg/dL Total Bilirubin 0.7 D (0.0-1.0) mg/dL AST 927 H (15-37) U/L ALT 1251 H (12-78) U/L Alkaline Phosphatase 149 H (46-116) U/L Total Protein 7.0 (6.4-8.2) g/dL Albumin 2.7 L (3.4-5.0) g/dL Globulin 4.3 H (2.2-4.2) g/dL Albumin/Globulin Ratio 0.6 L (0.8-2.0) TSH, Ultra Sensitive 0.427 (0.358-3.740) uIU/mL Departure - Departure Time of Disposition: 15:30 Disposition: Admitted As Inpatient 65 Condition: Serious Clinical Impression: Palliative care patient, Palliative care status, Need for comfort care, Metastatic cancer, Elevated liver enzymes, Hypernatremia, Thrombocytopenia, COPD , severe, Fibromyalgia, Chronic GERD, HTN (hypertension), Hypercholesteremia, Pulmonary HTN, [place]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 Renal failure (ARF), acute on chronic Qualifiers: Acute renal failure type: unspecified Chronic kidney disease stage: stage 4 ( severe) Qualified Code(s): N17.9 - Acute kidney failure, unspecified; N18.4 - Chronic kidney disease, stage 4 (severe) Anemia Qualifiers: Anemia type: unspecified type Qualified Code(s): D64.9 - Anemia, unspecified Diabetes Qualifiers: Diabetes mellitus type: type 2 Diabetes mellitus terminal system operator insulin use: with chcf use Diabetes mellitus complication status: with unspecified complications Qualified Code(s): E11.8 - Type 2 diabetes mellitus with unspecified complications; Z79.4 - keno terminal operator (current) use of insulin Depression Qualifiers: Depression Type: unspecified Qualified Code(s): F32.9 - Major depressive disorder, single episode, unspecified Diabetic foot ulcer Qualifiers: Diabetic foot ulcer location: heel Diabetes mellitus type: type 2 Laterality: right Non-pressure ulcer stage: with muscle involvement without evidence of necrosis Qualified Code(s): E11.621 - Type 2 diabetes mellitus with foot ulcer; L97.415 - Non-pressure chronic ulcer of right heel and midfoot with muscle involvement without evidence of necrosis CHF (congestive heart failure) Qualifiers: Heart failure type: unspecified Heart failure chronicity: chronic Qualified Code(s): I50.9 - Heart failure, unspecified Sleep apnea Qualifiers: Sleep apnea type: unspecified type Qualified Code(s): G47.30 - Sleep apnea, unspecified Urinary incontinence Qualifiers: Urinary Incontinence type: unspecified incontinence Qualified Code(s): R32 - Unspecified urinary incontinence Diabetic retinopathy Qualifiers: Diabetes mellitus type: type 2 Diabetic retinopathy severity: with unspecified retinopathy severity Diabetes mellitus macular edema: macular edema presence unspecified Laterality: right Qualified Code(s): E11.319 - Type 2 diabetes mellitus with unspecified diabetic retinopathy without macular edema - Discharge Information Referrals: PCP,None [Primary Care Provider] - - My Orders Last 24 Hours: My Active Orders 07/08/18 14:01 Chest 1V Frontal [CR] Stat 07/08/18 15:16 Patient Status [ADT] Routine Oxygen Therapy [RC] PRN Up With Assistance [RC] ASDIRECTED Vital Signs [RC] Q4H Resuscitation Status Routine 07/08/18 Dinner Regular Diet [DIET] - Assessment/Plan Last 24 Hours: My Active Orders 07/08/18 14:01 Chest 1V Frontal [CR] Stat 07/08/18 15:16 Patient Status [ADT] Routine Oxygen Therapy [RC] PRN Up With Assistance [RC] ASDIRECTED Vital Signs [RC] Q4H Resuscitation Status Routine 07/08/18 Dinner Regular Diet [DIET]
[2018-07-08] MEDS ORDERED: Menthol/Zinc Oxide Ointment 113 GM Tube TOP ONE (16:05)
[2018-07-08] MEDS ORDERED: Menthol/Zinc Oxide Ointment 113 GM Tube TOP PRN (16:05)
[2018-07-08] MEDS ORDERED: Nitroglycerin 0.4 MG Tab.SL SL PRN (17:10)
[2018-07-08] MEDS ORDERED: traZODone 50 MG Tab PO PRN (17:10)
[2018-07-08] MEDS ORDERED: Albuterol/Ipratropium 3.0-0.5 MG/3 ML Neb Soln INH PRN (17:10)
[2018-07-08] MEDS: Sodium Chloride 0.45% 1,000 ML IV SCH (18:13)
[2018-07-08] MEDS ORDERED: ROPINIROLE 4 MG PO SCH (20:00)
[2018-07-08] MEDS ORDERED: Acetaminophen/oxyCODONE 325-10 MG Tab ONE (22:55)
[2018-07-09] MEDS: Sodium Chloride 0.45% 1,000 ML IV SCH ×2 (04:17→14:20)
[2018-07-09] MEDS ORDERED: Clopidogrel 75 MG Tab PO SCH (08:00)
[2018-07-09] MEDS ORDERED: [UNRECOGNIZED DRUG - MIXTURE] PO SCH (08:00)
[2018-07-09] MEDS ORDERED: Lisinopril 10 MG Tab PO SCH (08:00)
[2018-07-09] MEDS ORDERED: Omeprazole 20 MG Cap.CR PO SCH (08:00)
[2018-07-09] MEDS ORDERED: Ferrous Sulfate 325 MG Tab PO SCH (08:00)
--- NOTE | 2018-07-09 10:08 | PCM.PN ---
- General Info Date of Service: 07/09/18 Subjective Update: Patient continues to have altered mental status. Patient still unable to eat and has no appetite. She is arousable and does respond to questions but confused. Functional Status: Reports: Pain Controlled - Review of Systems General: Reports: Weakness, Fatigue HEENT: Reports: No Symptoms Pulmonary: Reports: Shortness of Breath Cardiovascular: Reports: No Symptoms Gastrointestinal: Reports: Decreased Appetite Musculoskeletal: Reports: No Symptoms Skin: Reports: No Symptoms Neurological: Reports: Weakness Psychiatric: Reports: Confusion - Patient Data Vitals - Most Recent: Last Vital Signs Temp 36.0 C 07/09/18 08:45 Pulse 69 07/09/18 08:45 Resp 16 07/09/18 08:45 BP 120/64 07/09/18 08:45 Pulse Ox 90 L 07/09/18 08:45 Weight - Most Recent: 99.79 kg Lab Results Last 24 Hours: Laboratory Results - last 24 hr 07/08/18 07/08/18 07/08/18 Range/Units 08:14 14:00 14:25 WBC 9.8 (4.0-11.0) K/uL RBC 3.27 L (3.80-5.80) M/uL Hgb 9.9 L (11.5-16.5) g/dL Hct 32.0 L (37.0-47.0) % MCV 98 H (76-96) fL MCH 30.3 (27.0-32.0) pg MCHC 30.9 L (31.0-35.0) g/dL RDW 18.5 H (11.0-16.0) % Plt Count 107 L (150-500) K/uL MPV 12.2 H (6.0-10.0) fL Neut % (Auto) 89.8 H (45.0-70.0) % Lymph % (Auto) 3.3 L (20.0-40.0) % Mathews % (Auto) 6.7 (3.0-10.0) % Eos % (Auto) 0.1 L (1.0-5.0) % Baso % (Auto) 0.1 (0.0-0.5) % Neut # (Auto) 8.81 H (2.00-7.50) K/uL Lymph # (Auto) 0.32 L (1.50-4.00) K/uL Mathews # (Auto) 0.66 (0.20-0.80) K/uL Eos # (Auto) 0.01 L (0.04-0.40) K/uL Baso # (Auto) 0.01 L (0.02-0.10) K/uL PT (9.0-11.5) sec INR (1.0-3.5) Sodium (136-145) mmol/L Potassium (3.5-5.1) mmol/L Chloride (98-107) mmol/L Carbon Dioxide (21.0-32.0) mmol/L Anion Gap (5.0-15.0) mmol/L BUN (8-26) mg/dL Creatinine (0.55-1.02) mg/dL Est Cr Clr Drug Dosing Estimated GFR (MDRD) (>60) MLS/MIN BUN/Creatinine Ratio (6-25) Glucose (74-100) mg/dL POC Glucose (74-110) mg/dL Hemoglobin A1c 9.5 H (4.5-6.2) % Calcium (8.5-10.1) mg/dL Magnesium (1.8-2.4) mg/dL Total Bilirubin (0.0-1.0) mg/dL AST (15-37) U/L ALT (12-78) U/L Alkaline Phosphatase (46-116) U/L Total Protein (6.4-8.2) g/dL Albumin (3.4-5.0) g/dL Globulin (2.2-4.2) g/dL Albumin/Globulin Ratio (0.8-2.0) TSH, Ultra Sensitive (0.358-3.740) uIU/mL Urine Color Yellow Urine Appearance Clear (CLEAR) Urine pH 6.0 (5.0-8.0) Ur Specific [place] 1.025 (1.003-1.030) Urine Protein >=300 H (NEGATIVE) mg/dL Urine Glucose (UA) Negative (NEGATIVE) mg/dL Urine Ketones Trace H (NEGATIVE) mg/dL Urine Occult Blood Trace-intact H (NEGATIVE) Urine Nitrite Negative (NEGATIVE) Urine Bilirubin Negative (NEGATIVE) Urine Urobilinogen 0.2 (0.2-1.0) E.U./dL Ur Leukocyte Esterase Negative (NEGATIVE) Urine RBC 0-5 H /HPF Urine WBC Not seen /HPF Ur Squamous Epith Cells Moderate /HPF Amorphous Sediment Many /HPF Hyaline Casts Few /HPF 07/08/18 07/08/18 07/08/18 Range/Units 14:25 14:25 17:33 WBC (4.0-11.0) K/uL RBC (3.80-5.80) M/uL Hgb (11.5-16.5) g/dL Hct (37.0-47.0) % MCV (76-96) fL MCH (27.0-32.0) pg MCHC (31.0-35.0) g/dL RDW (11.0-16.0) % Plt Count (150-500) K/uL MPV (6.0-10.0) fL Neut % (Auto) (45.0-70.0) % Lymph % (Auto) (20.0-40.0) % Mathews % (Auto) (3.0-10.0) % Eos % (Auto) (1.0-5.0) % Baso % (Auto) (0.0-0.5) % Neut # (Auto) (2.00-7.50) K/uL Lymph # (Auto) (1.50-4.00) K/uL Mathews # (Auto) (0.20-0.80) K/uL Eos # (Auto) (0.04-0.40) K/uL Baso # (Auto) (0.02-0.10) K/uL PT 13.3 H D (9.0-11.5) sec INR 1.4 D (1.0-3.5) Sodium 149 H (136-145) mmol/L Potassium 4.0 (3.5-5.1) mmol/L Chloride 103 (98-107) mmol/L Carbon Dioxide 33.2 H (21.0-32.0) mmol/L Anion Gap 16.8 H (5.0-15.0) mmol/L BUN 78 H* D (8-26) mg/dL Creatinine 2.93 H D (0.55-1.02) mg/dL Est Cr Clr Drug Dosing TNP Estimated GFR (MDRD) 16 L (>60) MLS/MIN BUN/Creatinine Ratio 26.6 H (6-25) Glucose 132 H D (74-100) mg/dL POC Glucose 132 H (74-110) mg/dL Hemoglobin A1c (4.5-6.2) % Calcium 8.2 L (8.5-10.1) mg/dL Magnesium 2.3 (1.8-2.4) mg/dL Total Bilirubin 0.7 D (0.0-1.0) mg/dL AST 927 H (15-37) U/L ALT 1251 H (12-78) U/L Alkaline Phosphatase 149 H (46-116) U/L Total Protein 7.0 (6.4-8.2) g/dL Albumin 2.7 L (3.4-5.0) g/dL Globulin 4.3 H (2.2-4.2) g/dL Albumin/Globulin Ratio 0.6 L (0.8-2.0) TSH, Ultra Sensitive 0.427 (0.358-3.740) uIU/mL Urine Color Urine Appearance (CLEAR) Urine pH (5.0-8.0) Ur Specific [place] (1.003-1.030) Urine Protein (NEGATIVE) mg/dL Urine Glucose (UA) (NEGATIVE) mg/dL Urine Ketones (NEGATIVE) mg/dL Urine Occult Blood (NEGATIVE) Urine Nitrite (NEGATIVE) Urine Bilirubin (NEGATIVE) Urine Urobilinogen (0.2-1.0) E.U./dL Ur Leukocyte Esterase (NEGATIVE) Urine RBC /HPF Urine WBC /HPF Ur Squamous Epith Cells /HPF Amorphous Sediment /HPF Hyaline Casts /HPF 07/09/18 07/09/18 Range/Units 07:30 07:30 WBC 7.7 D (4.0-11.0) K/uL RBC 3.22 L (3.80-5.80) M/uL Hgb 9.8 L (11.5-16.5) g/dL Hct 32.4 L (37.0-47.0) % MCV 101 H (76-96) fL MCH 30.4 (27.0-32.0) pg MCHC 30.2 L (31.0-35.0) g/dL RDW 18.5 H (11.0-16.0) % Plt Count 107 L (150-500) K/uL MPV 12.1 H (6.0-10.0) fL Neut % (Auto) 86.9 H (45.0-70.0) % Lymph % (Auto) 5.1 L (20.0-40.0) % Mathews % (Auto) 7.4 (3.0-10.0) % Eos % (Auto) 0.3 L (1.0-5.0) % Baso % (Auto) 0.3 (0.0-0.5) % Neut # (Auto) 6.69 (2.00-7.50) K/uL Lymph # (Auto) 0.39 L (1.50-4.00) K/uL Mathews # (Auto) 0.57 (0.20-0.80) K/uL Eos # (Auto) 0.02 L (0.04-0.40) K/uL Baso # (Auto) 0.02 (0.02-0.10) K/uL PT (9.0-11.5) sec INR (1.0-3.5) Sodium 147 H (136-145) mmol/L Potassium 3.4 L (3.5-5.1) mmol/L Chloride 105 (98-107) mmol/L Carbon Dioxide 33.9 H (21.0-32.0) mmol/L Anion Gap 11.5 (5.0-15.0) mmol/L BUN 74 H* (8-26) mg/dL Creatinine 2.44 H (0.55-1.02) mg/dL Est Cr Clr Drug Dosing 17.45 Estimated GFR (MDRD) 20 L (>60) MLS/MIN BUN/Creatinine Ratio 30.3 H (6-25) Glucose 86 D (74-100) mg/dL POC Glucose (74-110) mg/dL Hemoglobin A1c (4.5-6.2) % Calcium 7.5 L (8.5-10.1) mg/dL Magnesium (1.8-2.4) mg/dL Total Bilirubin 0.6 (0.0-1.0) mg/dL AST 471 H (15-37) U/L ALT 922 H (12-78) U/L Alkaline Phosphatase 121 H (46-116) U/L Total Protein 6.2 L (6.4-8.2) g/dL Albumin 2.3 L (3.4-5.0) g/dL Globulin 3.9 (2.2-4.2) g/dL Albumin/Globulin Ratio 0.6 L (0.8-2.0) TSH, Ultra Sensitive (0.358-3.740) uIU/mL Urine Color Urine Appearance (CLEAR) Urine pH (5.0-8.0) Ur Specific [place] (1.003-1.030) Urine Protein (NEGATIVE) mg/dL Urine Glucose (UA) (NEGATIVE) mg/dL Urine Ketones (NEGATIVE) mg/dL Urine Occult Blood (NEGATIVE) Urine Nitrite (NEGATIVE) Urine Bilirubin (NEGATIVE) Urine Urobilinogen (0.2-1.0) E.U./dL Ur Leukocyte Esterase (NEGATIVE) Urine RBC /HPF Urine WBC /HPF Ur Squamous Epith Cells /HPF Amorphous Sediment /HPF Hyaline Casts /HPF Med Orders - Current: Current Medications Albuterol/Ipratropium (Duoneb 3.0-0.5 Mg/3 Ml) 3 ml INH Q4HR PRN PRN Reason: Dyspnea Aspirin (Halfprin) 81 mg PO DAILY [facility] Bumetanide (Bumex) 2 mg PO BID [facility] Calamine/Phenol (Calmoseptine) 1 - 2 gm TOP TID PRN PRN Reason: RASH Last Admin: 07/08/18 18:07 Dose: 1 gm Carvedilol (Coreg) 25 mg PO BID [facility] Clopidogrel Bisulfate (Plavix) 75 mg PO DAILY [facility] Sodium Chloride (Sodium Chloride 0.45%) 1,000 mls @ 100 mls/hr IV ASDIRECTED [facility] Last Admin: 07/09/18 04:17 Dose: 100 mls/hr Insulin Aspart (Novolog) 5 unit SUBCUT TIDMEALS [facility] Insulin Glargine (Lantus Solostar) 20 units SUBCUT BID [facility] Lisinopril (Prinivil) 10 mg PO DAILY [facility] Nitroglycerin (Nitrostat) 0.4 mg SL Q5M PRN PRN Reason: angina Non-Formulary Medication (Ropinirole [Requip]) 4 mg PO BEDTIME [facility] Non-Formulary Medication (Vit B12/Fa/Pyridoxine Hcl/Aa15 [Glycotrol]) 1,000 mcg PO DAILY [facility] Omeprazole (Omeprazole) 20 mg PO DAILY [facility] Oxycodone/Acetaminophen (Percocet 325-5 Mg) tab PO BID [facility] Senna/Docusate Sodium (Senna Plus) 1 tab PO BID [facility] Trazodone HCl (Trazodone) 50 mg PO BEDTIME PRN PRN Reason: Insomnia Discontinued Medications Oxycodone/Acetaminophen (Percocet 325-10 Mg) Confirm Administered Dose 1 tab .ROUTE .STBlueKite-MED ONE Stop: 07/08/18 22:56 Last Admin: 07/08/18 22:53 Dose: 1 tab - Exam Quality Assessment: Supplemental Oxygen General: No Acute Distress HEENT: Pupils Equal, Pupils Reactive, EOMI, Other (left strabismus) Lungs: Decreased Breath Sounds, Rhonchi Cardiovascular: Regular Rate, Regular Rhythm GI/Abdominal Exam: Normal Bowel Sounds, Soft, Non-Tender Back Exam: Normal Inspection Extremities: Pedal Edema (1+) Peripheral Pulses: 2+: Dorsalis Pedis (L), Dorsalis Pedis (R) Skin: Ecchymosis, Other (lower leg lesions and heel ulcers) Wound/Incisions: Healing Well, No Drainage Neurological: No New Focal Deficit Psy/Mental Status: Normal Affect, Normal Mood - Problem List & Annotations (1) Anemia SNOMED Code(s): 110854228 Code(s): D64.9 - ANEMIA, UNSPECIFIED Status: Acute Current Visit: Yes Qualifiers: Anemia type: unspecified type Qualified Code(s): D64.9 - Anemia, unspecified (2) COPD, severe SNOMED Code(s): 609088247 Code(s): J44.9 - CHRONIC OBSTRUCTIVE PULMONARY DISEASE, UNSPECIFIED Status : Acute Current Visit: Yes (3) Chronic GERD SNOMED Code(s): 235063062, 113484151 Code(s): K21.9 - GASTRO-ESOPHAGEAL REFLUX DISEASE WITHOUT ESOPHAGITIS Status: Acute Current Visit: Yes (4) Depression SNOMED Code(s): 45726788 Code(s): F32.9 - MAJOR DEPRESSIVE DISORDER, SINGLE EPISODE, UNSPECIFIED Status: Acute Current Visit: Yes Qualifiers: Depression Type: unspecified Qualified Code(s): F32.9 - Major depressive disorder, single episode, unspecified (5) Diabetes SNOMED Code(s): 05524143 Code(s): E11.9 - TYPE 2 DIABETES MELLITUS WITHOUT COMPLICATIONS Status: Acute Current Visit: Yes Qualifiers: Diabetes mellitus type: type 2 Diabetes mellitus alf insulin use: with oysterman use Diabetes mellitus complication status: with unspecified complications Qualified Code(s): E11.8 - Type 2 diabetes mellitus with unspecified complications; Z79.4 - senior care (current) use of insulin (6) Diabetic foot ulcer SNOMED Code(s): 958777685 Code(s): E11.621 - TYPE 2 DIABETES MELLITUS WITH FOOT ULCER; L97.509 - NON- PRESSURE CHRONIC ULCER OTH PRT UNSP FOOT W UNSP SEVERITY Status: Acute Current Visit: Yes Qualifiers: Diabetic foot ulcer location: heel Diabetes mellitus type: type 2 Laterality: right Non-pressure ulcer stage: with muscle involvement without evidence of necrosis Qualified Code(s): E11.621 - Type 2 diabetes mellitus with foot ulcer; L97.415 - Non-pressure chronic ulcer of right heel and midfoot with muscle involvement without evidence of necrosis (7) Diabetic retinopathy SNOMED Code(s): 6168669 Code(s): E11.319 - TYPE 2 DIABETES W UNSP DIABETIC RTNOP W/O MACULAR EDEMA Status: Acute Current Visit: Yes Qualifiers: Diabetes mellitus type: type 2 Diabetic retinopathy severity: with unspecified retinopathy severity Diabetes mellitus macular edema: macular edema presence unspecified Laterality: right Qualified Code(s): E11.319 - Type 2 diabetes mellitus with unspecified diabetic retinopathy without macular edema (8) Elevated liver enzymes SNOMED Code(s): 431914573 Code(s): R74.8 - ABNORMAL LEVELS OF OTHER SERUM ENZYMES Status: Acute Current Visit: Yes (9) Fibromyalgia SNOMED Code(s): 324602938 Code(s): M79.7 - FIBROMYALGIA Status: Acute Current Visit: Yes (10) Hypercholesteremia SNOMED Code(s): 72547890 Code(s): E78.00 - PURE HYPERCHOLESTEROLEMIA, UNSPECIFIED Status: Acute Current Visit: Yes (11) Hypernatremia SNOMED Code(s): 548506799 Code(s): E87.0 - HYPEROSMOLALITY AND HYPERNATREMIA Status: Acute Current Visit: Yes (12) Hypertension SNOMED Code(s): 67979223 Code(s): I10 - ESSENTIAL (PRIMARY) HYPERTENSION Status: Acute Current Visit: Yes Annotation/Comment:: 04/26/17 - 1. Extremely eleveated blood sugar, 2. Renal failure/insufficiency, 3. High potassium level, 4. Known chronic obstructive pulmonary disease, 5. Type 2 diabetes, 6. Hypertension, 7. Chronic back pain, 8. Restless leg syndrome and insomnia. (13) Metastatic cancer SNOMED Code(s): 004261014 Code(s): C79.9 - SECONDARY MALIGNANT NEOPLASM OF UNSPECIFIED SITE Status: Acute Current Visit: Yes (14) Need for comfort care SNOMED Code(s): 958573911, 664260516 Code(s): SZL4284 - Status: Acute Current Visit: Yes (15) Palliative care patient SNOMED Code(s): 780243375 Code(s): Z51.5 - ENCOUNTER FOR PALLIATIVE CARE Status: Acute Current Visit: Yes (16) Palliative care status SNOMED Code(s): 047174086 Code(s): Z51.5 - ENCOUNTER FOR PALLIATIVE CARE Status: Acute Current Visit: Yes (17) Pulmonary HTN SNOMED Code(s): 08887636 Code(s): I27.20 - PULMONARY HYPERTENSION, UNSPECIFIED Status: Acute Current Visit: Yes (18) Renal failure (ARF), acute on chronic SNOMED Code(s): 337374910 Code(s): N17.9 - ACUTE KIDNEY FAILURE, UNSPECIFIED; N18.9 - CHRONIC KIDNEY DISEASE, UNSPECIFIED Status: Acute Current Visit: Yes Qualifiers: Acute renal failure type: unspecified Chronic kidney disease stage: stage 4 (severe) Qualified Code(s): N17.9 - Acute kidney failure, unspecified; N18.4 - Chronic kidney disease, stage 4 (severe) (19) Restless leg syndrome SNOMED Code(s): 97769425 Code(s): G25.81 - RESTLESS LEGS SYNDROME Status: Acute Current Visit: Yes Annotation/Comment:: 04/26/17 - 1. Extremely eleveated blood sugar, 2. Renal failure/insufficiency, 3. High potassium level, 4. Known chronic obstructive pulmonary disease, 5. Type 2 diabetes, 6. Hypertension, 7. Chronic back pain, 8. Restless leg syndrome and insomnia. (20) Sleep apnea SNOMED Code(s): 40559552 Code(s): G47.30 - SLEEP APNEA, UNSPECIFIED Status: Acute Current Visit: Yes Qualifiers: Sleep apnea type: unspecified type Qualified Code(s): G47.30 - Sleep apnea , unspecified (21) Thrombocytopenia SNOMED Code(s): 269733613 Code(s): D69.6 - THROMBOCYTOPENIA, UNSPECIFIED Status: Acute Current Visit: Yes (22) Urinary incontinence SNOMED Code(s): 515635762 Code(s): R32 - UNSPECIFIED URINARY INCONTINENCE Status: Acute Current Visit: Yes Qualifiers: Urinary Incontinence type: unspecified incontinence Qualified Code(s): R32 - Unspecified urinary incontinence (23) CHF (congestive heart failure) SNOMED Code(s): 91252869 Code(s): I50.9 - HEART FAILURE, UNSPECIFIED Status: Chronic Priority: High Current Visit: Yes Qualifiers: Heart failure type: unspecified Heart failure chronicity: chronic Qualified Code(s): I50.9 - Heart failure, unspecified (24) Chronic back pain SNOMED Code(s): 832770546 Code(s): M54.9 - DORSALGIA, UNSPECIFIED; G89.29 - OTHER CHRONIC PAIN Status : Acute Current Visit: No Annotation/Comment:: 04/26/17 - 1. Extremely eleveated blood sugar, 2. Renal failure/insufficiency, 3. High potassium level, 4. Known chronic obstructive pulmonary disease, 5. Type 2 diabetes, 6. Hypertension, 7. Chronic back pain, 8. Restless leg syndrome and insomnia. (25) Insomnia SNOMED Code(s): 509203126 Code(s): G47.00 - INSOMNIA, UNSPECIFIED Status: Acute Current Visit: No Annotation/Comment:: 04/26/17 - 1. Extremely eleveated blood sugar, 2. Renal failure/insufficiency, 3. High potassium level, 4. Known chronic obstructive pulmonary disease, 5. Type 2 diabetes, 6. Hypertension, 7. Chronic back pain, 8. Restless leg syndrome and insomnia. - Problem List Review Problem List Initiated/Reviewed/Updated: Yes - My Orders Last 24 Hours: My Active Orders 07/08/18 14:01 Chest 1V Frontal [CR] Stat 07/08/18 15:16 Patient Status [ADT] Routine Oxygen Therapy [RC] PRN Up With Assistance [RC] ASDIRECTED Vital Signs [RC] Q4H Resuscitation Status Routine 07/08/18 15:41 Consult to Occupational Therapy [OT Evaluation and Treatment] [CONS] Routine Consult to Physical Therapy [PT Evaluation and Treatment] [CONS] Routine Wound [employer] Consult [Consult to Wound Care Services] [CONS] Routine 07/08/18 16:05 Menthol/Zinc Oxide [Calmoseptine] 1 - 2 gm TOP TID PRN 07/08/18 17:10 Albuterol/Ipratropium [DuoNeb 3.0-0.5 MG/3 ML] 3 ml INH Q4HR PRN Nitroglycerin [Nitrostat] 0.4 mg SL Q5M PRN traZODone 50 mg PO BEDTIME PRN 07/08/18 17:15 Sodium Chloride 0.45% 1,000 ml IV ASDIRECTED 07/08/18 18:00 Insulin Aspart [NovoLOG] 5 unit SUBCUT TIDMEALS 07/08/18 20:00 Acetaminophen/oxyCODONE [Percocet 325-5 MG] DOSE tab PO BID Bumetanide [Bumex] 2 mg PO BID Carvedilol [Coreg] 25 mg PO BID Docusate Sodium/Sennosides [Senna Plus] 1 tab PO BID Insulin Glarg,Human.Rec.Analog [LantUS Solostar] 20 units SUBCUT BID rOPINIRole [Requip] 4 mg PO BEDTIME 07/08/18 Dinner Regular Diet [DIET] 07/09/18 08:00 Aspirin [Halfprin] 81 mg PO DAILY Clopidogrel [Plavix] 75 mg PO DAILY Lisinopril [Prinivil] 10 mg PO DAILY Omeprazole 20 mg PO DAILY Vit B12/Fa/Pyridoxine HCl/AA15 [Glycotrol] 1,000 mcg PO DAILY - Plan Plan:: Patient continued on hydration and lab f/u. There has been some improvement in labs for renal dysfunction and liver dysfunction. Pain controlled. Patient continues to be weak - continue PT/OT. We will monitor status closely. Patient is palliative but family would like to continue supportive IVF and other medications and measures that may improve her quality of life during this time.
[2018-07-09] MEDS: Insulin Aspart 100 Units/ML 3 ML Pen SUBCUT SCH ×4 (10:39→17:47)
--- NOTE | 2018-07-09 10:51 | CR ---
Date of Service: 07/08/18 Clinical Data: shortness of breath PORTABLE AP CHEST: Comparison is made to a prior exam dated 12/10/17. The patient is rotated to the left and has taken a poor inspiration. The heart is enlarged. The pulmonary vasculature appears prominent suggesting pulmonary venous congestion. There is infiltrate with consolidation of the left mid and lower lung. Pneumonia should be considered. There is also blunting of the left costophrenic angle suggesting a left pleural effusion. The right lung is relatively clear. No other interval changes from the prior study. [id number] [facility]
[2018-07-09] MEDS ORDERED: Isosorbide Mononitrate 30 MG Tab.ER ONE (12:25)
[2018-07-09] MEDS: Bumetanide 1 MG Tab PO SCH ×2 (12:35)
[2018-07-09] MEDS: Carvedilol 25 MG Tab PO SCH (12:37)
[2018-07-09] MEDS: Aspirin 81 MG Tab.EC PO SCH (12:38)
[2018-07-09] MEDS: Ferrous Sulfate 325 MG Tab PO SCH (12:39)
[2018-07-09] MEDS: Isosorbide Mononitrate 30 MG Tab.ER PO SCH (12:39)
[2018-07-09] MEDS ORDERED: Acetaminophen/oxyCODONE 325-5 MG Tab ONE (18:35)
[2018-07-09] MEDS: Acetaminophen/oxyCODONE 325-5 MG Tab PO PRN ×2 (18:45→20:44)
[2018-07-09] MEDS ORDERED: rOPINIRole 1 MG Tab ONE (19:07)
[2018-07-09] MEDS ORDERED: Acetaminophen/oxyCODONE 325-5 MG Tab PO SCH (20:00)
[2018-07-09] MEDS: VALSARTAN PO SCH (20:36)
[2018-07-09] MEDS: SACUBITRIL PO SCH (20:36)
[2018-07-09] MEDS: Omeprazole 20 MG Cap.CR PO SCH (20:39)
[2018-07-09] MEDS: rOPINIRole 3 MG Tab PO SCH (20:40)
[2018-07-10] MEDS: Sodium Chloride 0.45% 1,000 ML IV SCH ×2 (00:21→20:04)
[2018-07-10] MEDS ORDERED: Fluticasone Propionate Nasal Spray 16 GM Bottle ONE (04:03)
[2018-07-10] MEDS: Acetaminophen/oxyCODONE 325-5 MG Tab PO PRN ×2 (05:10→11:25)
[2018-07-10] MEDS ORDERED: rOPINIRole 1 MG Tab ONE ×2 (07:14→19:50)
[2018-07-10] MEDS: Acetaminophen/oxyCODONE 325-5 MG Tab PO SCH ×4 (08:00→20:18)
[2018-07-10] MEDS: Carvedilol 25 MG Tab PO SCH (08:22)
[2018-07-10] MEDS: Bumetanide 1 MG Tab PO SCH (08:22)
[2018-07-10] MEDS: Aspirin 81 MG Tab.EC PO SCH (08:23)
[2018-07-10] MEDS: Isosorbide Mononitrate 30 MG Tab.ER PO SCH (08:23)
[2018-07-10] MEDS: Potassium Chloride 10 MEQ Tab.ER PO SCH (08:24)
[2018-07-10] MEDS: SACUBITRIL PO SCH ×2 (08:25→20:17)
[2018-07-10] MEDS: Insulin Aspart 100 Units/ML 3 ML Pen SUBCUT SCH ×3 (08:25→20:02)
[2018-07-10] MEDS: VALSARTAN PO SCH ×2 (08:25→20:17)
[2018-07-10] MEDS: rOPINIRole 3 MG Tab PO SCH ×2 (08:26→20:16)
[2018-07-10] MEDS: Omeprazole 20 MG Cap.CR PO SCH ×2 (08:26→19:53)
--- NOTE | 2018-07-10 09:45 | PCM.PN ---
- General Info Date of Service: 07/10/18 Functional Status: Reports: Pain Controlled. Denies: Tolerating Diet (no appetite), Ambulating (too weak to ambulate) - Review of Systems General: Reports: Weakness, Fatigue Pulmonary: Reports: Shortness of Breath Cardiovascular: Reports: Dyspnea on Exertion Gastrointestinal: Reports: No Symptoms Genitourinary: Reports: Incontinence Musculoskeletal: Reports: Back Pain Skin: Reports: Other (leg wounds and heel ulcers) Neurological: Reports: Confusion Psychiatric: Reports: Confusion - Patient Data Vitals - Most Recent: Last Vital Signs Temp 36.4 C 07/10/18 04:00 Pulse 65 07/10/18 08:22 Resp 18 07/10/18 04:00 BP 108/50 L 07/10/18 08:23 Pulse Ox 94 L 07/10/18 04:00 Weight - Most Recent: 99.79 kg Lab Results Last 24 Hours: Laboratory Results - last 24 hr 07/09/18 07/09/18 07/10/18 Range/Units 10:47 16:10 07:05 WBC 7.2 (4.0-11.0) K/uL RBC 3.12 L (3.80-5.80) M/uL Hgb 9.4 L (11.5-16.5) g/dL Hct 31.5 L (37.0-47.0) % MCV 101 H (76-96) fL MCH 30.1 (27.0-32.0) pg MCHC 29.8 L (31.0-35.0) g/dL RDW 18.1 H (11.0-16.0) % Plt Count 104 L (150-500) K/uL MPV 11.6 H (6.0-10.0) fL Neut % (Auto) 85.1 H (45.0-70.0) % Lymph % (Auto) 6.4 L (20.0-40.0) % Pettis % (Auto) 7.1 (3.0-10.0) % Eos % (Auto) 1.3 (1.0-5.0) % Baso % (Auto) 0.1 (0.0-0.5) % Neut # (Auto) 6.13 (2.00-7.50) K/uL Lymph # (Auto) 0.46 L (1.50-4.00) K/uL Pettis # (Auto) 0.51 (0.20-0.80) K/uL Eos # (Auto) 0.09 (0.04-0.40) K/uL Baso # (Auto) 0.01 L (0.02-0.10) K/uL Sodium (136-145) mmol/L Potassium (3.5-5.1) mmol/L Chloride (98-107) mmol/L Carbon Dioxide (21.0-32.0) mmol/L Anion Gap (5.0-15.0) mmol/L BUN (8-26) mg/dL Creatinine (0.55-1.02) mg/dL Est Cr Clr Drug Dosing mL/min Estimated GFR (MDRD) (>60) MLS/MIN BUN/Creatinine Ratio (6-25) Glucose (74-100) mg/dL POC Glucose 131 H 89 (74-110) mg/dL Calcium (8.5-10.1) mg/dL Total Bilirubin (0.0-1.0) mg/dL AST (15-37) U/L ALT (12-78) U/L Alkaline Phosphatase (46-116) U/L Total Protein (6.4-8.2) g/dL Albumin (3.4-5.0) g/dL Globulin (2.2-4.2) g/dL Albumin/Globulin Ratio (0.8-2.0) 07/10/18 07/10/18 Range/Units 07:05 07:12 WBC (4.0-11.0) K/uL RBC (3.80-5.80) M/uL Hgb (11.5-16.5) g/dL Hct (37.0-47.0) % MCV (76-96) fL MCH (27.0-32.0) pg MCHC (31.0-35.0) g/dL RDW (11.0-16.0) % Plt Count (150-500) K/uL MPV (6.0-10.0) fL Neut % (Auto) (45.0-70.0) % Lymph % (Auto) (20.0-40.0) % Pettis % (Auto) (3.0-10.0) % Eos % (Auto) (1.0-5.0) % Baso % (Auto) (0.0-0.5) % Neut # (Auto) (2.00-7.50) K/uL Lymph # (Auto) (1.50-4.00) K/uL Pettis # (Auto) (0.20-0.80) K/uL Eos # (Auto) (0.04-0.40) K/uL Baso # (Auto) (0.02-0.10) K/uL Sodium 143 (136-145) mmol/L Potassium 3.3 L (3.5-5.1) mmol/L Chloride 102 (98-107) mmol/L Carbon Dioxide 32.6 H (21.0-32.0) mmol/L Anion Gap 11.7 (5.0-15.0) mmol/L BUN 68 H* (8-26) mg/dL Creatinine 2.42 H (0.55-1.02) mg/dL Est Cr Clr Drug Dosing 17.60 mL/min Estimated GFR (MDRD) 20 L (>60) MLS/MIN BUN/Creatinine Ratio 28.1 H (6-25) Glucose 88 (74-100) mg/dL POC Glucose 91 (74-110) mg/dL Calcium 7.1 L (8.5-10.1) mg/dL Total Bilirubin 0.6 (0.0-1.0) mg/dL AST 212 H (15-37) U/L ALT 641 H (12-78) U/L Alkaline Phosphatase 102 (46-116) U/L Total Protein 5.9 L (6.4-8.2) g/dL Albumin 2.2 L (3.4-5.0) g/dL Globulin 3.7 (2.2-4.2) g/dL Albumin/Globulin Ratio 0.6 L (0.8-2.0) Med Orders - Current: Current Medications Albuterol/Ipratropium (Duoneb 3.0-0.5 Mg/3 Ml) 3 ml INH Q4HR PRN PRN Reason: Dyspnea Aspirin (Halfprin) 81 mg PO DAILY [facility] Last Admin: 07/10/18 08:23 Dose: 81 mg Bumetanide (Bumex) 2 mg PO DAILY [facility] Last Admin: 07/10/18 08:22 Dose: 2 mg Calamine/Phenol (Calmoseptine) 1 - 2 gm TOP TID PRN PRN Reason: RASH Last Admin: 07/08/18 18:07 Dose: 1 gm Carvedilol (Coreg) 25 mg PO DAILY [facility] Last Admin: 07/10/18 08:22 Dose: 25 mg Clopidogrel Bisulfate (Plavix) 75 mg PO DAILY [facility] Ferrous Sulfate (Ferrous Sulfate) 325 mg PO TuThSa@1200 [facility] Stop: 07/13/18 23:59 Last Admin: 07/09/18 12:39 Dose: 325 mg Ferrous Sulfate (Ferrous Sulfate) 325 mg PO MoWeFr@1200 [facility] Stop: 07/19/18 23:59 Sodium Chloride (Sodium Chloride 0.45%) 1,000 mls @ 100 mls/hr IV ASDIRECTED [facility] Last Admin: 07/10/18 00:21 Dose: 100 mls/hr Insulin Aspart (Novolog) 5 unit SUBCUT TIDMEALS [facility] Last Admin: 07/10/18 08:25 Dose: Not Given Insulin Glargine (Lantus Solostar) 20 units SUBCUT DAILY [facility] Isosorbide Mononitrate (Imdur) 30 mg PO DAILY [facility] Last Admin: 07/10/18 08:23 Dose: 30 mg Nitroglycerin (Nitrostat) 0.4 mg SL Q5M PRN PRN Reason: angina Sacubitril 49mg/Valsartan 51mg Tablet 1 each PO BID [facility] Last Admin: 07/10/18 08:25 Dose: 1 each Omeprazole (Omeprazole) 40 mg PO BID [facility] Last Admin: 07/10/18 08:26 Dose: 40 mg Oxycodone/Acetaminophen (Percocet 325-5 Mg) 1 tab PO BID [facility] Oxycodone/Acetaminophen (Percocet 325-5 Mg) 1 tab PO TID PRN PRN Reason: Headache/Pain Last Admin: 07/10/18 05:10 Dose: 1 tab Potassium Chloride (Klor-Con 10) 10 meq PO DAILY [facility] Last Admin: 07/10/18 08:24 Dose: 10 meq Ropinirole HCl (Requip) 6 mg PO BID [facility] Last Admin: 07/10/18 08:26 Dose: 6 mg Discontinued Medications Calamine/Phenol (Calmoseptine) 113 gm TOP .STK-MED ONE Stop: 07/08/18 16:06 Ferrous Sulfate (Ferrous Sulfate) 325 mg PO DAILY [facility] Fluticasone Propionate (Flonase) Confirm Administered Dose 16 gm .ROUTE .[facility] Stop: 07/10/18 04:04 Last Admin: 07/10/18 05:09 Dose: 1 applic Isosorbide Mononitrate (Imdur) Confirm Administered Dose 30 mg .ROUTE .ST-[facility] Stop: 07/09/18 12:26 Last Admin: 07/09/18 12:39 Dose: Not Given Omeprazole (Omeprazole) 40 mg PO DAILY [facility] Oxycodone/Acetaminophen (Percocet 325-10 Mg) Confirm Administered Dose 1 tab .ROUTE .[facility] ONE Stop: 07/08/18 22:56 Last Admin: 07/08/18 22:53 Dose: 1 tab Oxycodone/Acetaminophen (Percocet 325-5 Mg) Confirm Administered Dose 1 tab .ROUTE .[facility] ONE Stop: 07/09/18 18:36 Last Admin: 07/09/18 18:49 Dose: Not Given Oxycodone/Acetaminophen (Percocet 325-5 Mg) 1 tab PO TID [facility] Ropinirole HCl (Requip) Confirm Administered Dose 6 mg .ROUTE .[facility] Stop: 07/09/18 19:08 Last Admin: 07/09/18 20:36 Dose: 6 mg Ropinirole HCl (Requip) Confirm Administered Dose 4 mg .ROUTE [facility] Stop: 07/10/18 07:15 Last Admin: 07/10/18 08:21 Dose: Not Given - Exam Quality Assessment: Supplemental Oxygen General: Mild Distress, Obtunded HEENT: Pupils Equal, Pupils Reactive, EOMI, Other (left eye strabismus) Lungs: Normal Respiratory Effort, Rhonchi Cardiovascular: Regular Rate, Regular Rhythm GI/Abdominal Exam: Normal Bowel Sounds, Soft, Non-Tender Back Exam: Muscle Spasm Extremities: Pedal Edema (2+) Peripheral Pulses: 2+: Dorsalis Pedis (L), Dorsalis Pedis (R) Skin: Other (skin lesions and wounds of legs and heel ulcers) Neurological: No New Focal Deficit - Problem List & Annotations (1) Anemia SNOMED Code(s): 713817431 Code(s): D64.9 - ANEMIA, UNSPECIFIED Status: Acute Current Visit: Yes Qualifiers: Anemia type: unspecified type Qualified Code(s): D64.9 - Anemia, unspecified (2) COPD, severe SNOMED Code(s): 917982577 Code(s): J44.9 - CHRONIC OBSTRUCTIVE PULMONARY DISEASE, UNSPECIFIED Status : Acute Current Visit: Yes (3) Chronic GERD SNOMED Code(s): 090468688, 085823258 Code(s): K21.9 - GASTRO-ESOPHAGEAL REFLUX DISEASE WITHOUT ESOPHAGITIS Status: Acute Current Visit: Yes (4) Depression SNOMED Code(s): 97585647 Code(s): F32.9 - MAJOR DEPRESSIVE DISORDER, SINGLE EPISODE, UNSPECIFIED Status: Acute Current Visit: Yes Qualifiers: Depression Type: unspecified Qualified Code(s): F32.9 - Major depressive disorder, single episode, unspecified (5) Diabetes SNOMED Code(s): 54006990 Code(s): E11.9 - TYPE 2 DIABETES MELLITUS WITHOUT COMPLICATIONS Status: Acute Current Visit: Yes Qualifiers: Diabetes mellitus type: type 2 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 mellitus 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 Diabetes mellitus complication status: with unspecified complications Qualified Code(s): E11.8 - Type 2 diabetes mellitus with unspecified complications; Z79.4 - intermediate frame tender (current) use of insulin (6) Diabetic foot ulcer SNOMED Code(s): 374789499 Code(s): E11.621 - TYPE 2 DIABETES MELLITUS WITH FOOT ULCER; L97.509 - NON- PRESSURE CHRONIC ULCER OTH PRT UNSP FOOT W UNSP SEVERITY Status: Acute Current Visit: Yes Qualifiers: Diabetic foot ulcer location: heel Diabetes mellitus type: type 2 Laterality: right Non-pressure ulcer stage: with muscle involvement without evidence of necrosis Qualified Code(s): E11.621 - Type 2 diabetes mellitus with foot ulcer; L97.415 - Non-pressure chronic ulcer of right heel and midfoot with muscle involvement without evidence of necrosis (7) Diabetic retinopathy SNOMED Code(s): 5556092 Code(s): E11.319 - TYPE 2 DIABETES W UNSP DIABETIC RTNOP W/O MACULAR EDEMA Status: Acute Current Visit: Yes Qualifiers: Diabetes mellitus type: type 2 Diabetic retinopathy severity: with unspecified retinopathy severity Diabetes mellitus macular edema: macular edema presence unspecified Laterality: right Qualified Code(s): E11.319 - Type 2 diabetes mellitus with unspecified diabetic retinopathy without macular edema (8) Elevated liver enzymes SNOMED Code(s): 776081668 Code(s): R74.8 - ABNORMAL LEVELS OF OTHER SERUM ENZYMES Status: Acute Current Visit: Yes (9) Fibromyalgia SNOMED Code(s): 266145551 Code(s): M79.7 - FIBROMYALGIA Status: Acute Current Visit: Yes (10) Hypercholesteremia SNOMED Code(s): 54646425 Code(s): E78.00 - PURE HYPERCHOLESTEROLEMIA, UNSPECIFIED Status: Acute Current Visit: Yes (11) Hypernatremia SNOMED Code(s): 807525954 Code(s): E87.0 - HYPEROSMOLALITY AND HYPERNATREMIA Status: Acute Current Visit: Yes (12) Hypertension SNOMED Code(s): 20220071 Code(s): I10 - ESSENTIAL (PRIMARY) HYPERTENSION Status: Acute Current Visit: Yes Annotation/Comment:: 04/26/17 - 1. Extremely eleveated blood sugar, 2. Renal failure/insufficiency, 3. High potassium level, 4. Known chronic obstructive pulmonary disease, 5. Type 2 diabetes, 6. Hypertension, 7. Chronic back pain, 8. Restless leg syndrome and insomnia. (13) Metastatic cancer SNOMED Code(s): 799067692 Code(s): C79.9 - SECONDARY MALIGNANT NEOPLASM OF UNSPECIFIED SITE Status: Acute Current Visit: Yes (14) Need for comfort care SNOMED Code(s): 112493519, 547871081 Code(s): CHU1699 - Status: Acute Current Visit: Yes (15) Palliative care patient SNOMED Code(s): 896197177 Code(s): Z51.5 - ENCOUNTER FOR PALLIATIVE CARE Status: Acute Current Visit: Yes (16) Palliative care status SNOMED Code(s): 715617710 Code(s): Z51.5 - ENCOUNTER FOR PALLIATIVE CARE Status: Acute Current Visit: Yes (17) Pulmonary HTN SNOMED Code(s): 59069501 Code(s): I27.20 - PULMONARY HYPERTENSION, UNSPECIFIED Status: Acute Current Visit: Yes (18) Renal failure (ARF), acute on chronic SNOMED Code(s): 310162341 Code(s): N17.9 - ACUTE KIDNEY FAILURE, UNSPECIFIED; N18.9 - CHRONIC KIDNEY DISEASE, UNSPECIFIED Status: Acute Current Visit: Yes Qualifiers: Acute renal failure type: unspecified Chronic kidney disease stage: stage 4 (severe) Qualified Code(s): N17.9 - Acute kidney failure, unspecified; N18.4 - Chronic kidney disease, stage 4 (severe) (19) Restless leg syndrome SNOMED Code(s): 42334030 Code(s): G25.81 - RESTLESS LEGS SYNDROME Status: Acute Current Visit: Yes Annotation/Comment:: 04/26/17 - 1. Extremely eleveated blood sugar, 2. Renal failure/insufficiency, 3. High potassium level, 4. Known chronic obstructive pulmonary disease, 5. Type 2 diabetes, 6. Hypertension, 7. Chronic back pain, 8. Restless leg syndrome and insomnia. (20) Sleep apnea SNOMED Code(s): 12785923 Code(s): G47.30 - SLEEP APNEA, UNSPECIFIED Status: Acute Current Visit: Yes Qualifiers: Sleep apnea type: unspecified type Qualified Code(s): G47.30 - Sleep apnea , unspecified (21) Thrombocytopenia SNOMED Code(s): 878257246 Code(s): D69.6 - THROMBOCYTOPENIA, UNSPECIFIED Status: Acute Current Visit: Yes (22) Urinary incontinence SNOMED Code(s): 987105967 Code(s): R32 - UNSPECIFIED URINARY INCONTINENCE Status: Acute Current Visit: Yes Qualifiers: Urinary Incontinence type: unspecified incontinence Qualified Code(s): R32 - Unspecified urinary incontinence (23) CHF (congestive heart failure) SNOMED Code(s): 29398780 Code(s): I50.9 - HEART FAILURE, UNSPECIFIED Status: Chronic Priority: High Current Visit: Yes Qualifiers: Heart failure type: unspecified Heart failure chronicity: chronic Qualified Code(s): I50.9 - Heart failure, unspecified (24) Chronic back pain SNOMED Code(s): 993063790 Code(s): M54.9 - DORSALGIA, UNSPECIFIED; G89.29 - OTHER CHRONIC PAIN Status : Acute Current Visit: No Annotation/Comment:: 04/26/17 - . Extremely eleveated blood sugar, 2. Renal failure/insufficiency, 3. High potassium level, 4. Known chronic obstructive pulmonary disease, 5. Type 2 diabetes, 6. Hypertension, 7. Chronic back pain, 8. Restless leg syndrome and insomnia. (25) Insomnia SNOMED Code(s): 324317705 Code(s): G47.00 - INSOMNIA, UNSPECIFIED Status: Acute Current Visit: No Annotation/Comment:: 04/26/17 - 1. Extremely eleveated blood sugar, 2. Renal failure/insufficiency, 3. High potassium level, 4. Known chronic obstructive pulmonary disease, 5. Type 2 diabetes, 6. Hypertension, 7. Chronic back pain, 8. Restless leg syndrome and insomnia. - Problem List Review Problem List Initiated/Reviewed/Updated: Yes - My Orders Last 24 Hours: My Active Orders 07/09/18 11:42 Urinary Catheter Assessment [RC] BID 07/09/18 12:00 Ferrous Sulfate 325 mg PO TuThSa@1200 07/09/18 16:20 CULTURE MRSA SURVEY [RM] Routine 07/09/18 18:48 Acetaminophen/oxyCODONE [Percocet 325-5 MG] 1 tab PO TID PRN 07/09/18 20:00 Insert Kwok Catheter [Insert Urinary Catheter] [OM.PC] Q24H Non-Formulary Medication [NF Drug] 1 each PO BID Omeprazole 40 mg PO BID rOPINIRole [Requip] 6 mg PO BID 07/10/18 08:00 Insulin Glarg,Human.Rec.Analog [LantUS Solostar] 20 units SUBCUT DAILY Potassium Chloride [Klor-Con 10] 10 meq PO DAILY 07/10/18 08:13 PT Evaluation and Treatment [CONS] Routine 07/11/18 05:11 CBC WITH AUTO DIFF [HEME] AM COMPREHENSIVE METABOLIC PN,CMP [CHEM] AM 07/12/18 05:11 CBC WITH AUTO DIFF [HEME] AM COMPREHENSIVE METABOLIC PN,CMP [CHEM] AM 07/15/18 12:00 Ferrous Sulfate 325 mg PO MoWeFr@1200 - Plan Plan:: Patient continued on hydration and lab f/u. There has been some improvement in labs for renal dysfunction and liver dysfunction. Pain controlled. Patient continues to be weak - continue PT/OT. We will monitor status closely. Patient is palliative but family would like to continue supportive IVF and other medications and measures that may improve her quality of life during this time. 5/15/19 Renal function continues to improve. Liver function continues to improve. Anemia - we will continue to monitor for further management. COPD - continue oxygen as needed and nebulizers. Severe deconditioning - PT/OT as tolerated. Metastatic cancer - palliative care. Hypernatremia - resolved with hydration and current management. We will continue to follow. Leg wounds - PT wound care Heel ulcerations - PT wound care. groin and decubitus stage 1 ulcer on admission - Kwok placed and hygiene cares in place. Confusion - we will reassess as her labs improve. Pain management - Percocet BID at this time and titrate accordingly.
[2018-07-10] MEDS ORDERED: Ferrous Sulfate 325 MG Tab PO SCH (10:00)
[2018-07-10] MEDS: Insulin Glargine,Human Rec. Analog 100 Units/ML 3 ML Pen SUBCUT SCH (11:28)
[2018-07-10] MEDS ORDERED: Non-Formulary Medication 1 Each (Sacubitril/Valsartan [Entresto 49 Mg-51 Mg Tablet] 1 EACH PO SCH (20:00)
[2018-07-11] MEDS: Sodium Chloride 0.45% 1,000 ML IV SCH ×2 (06:28→16:09)
[2018-07-11] MEDS: Acetaminophen/oxyCODONE 325-5 MG Tab PO SCH ×2 (07:49→20:57)
[2018-07-11] MEDS: Bumetanide 1 MG Tab PO SCH (07:51)
[2018-07-11] MEDS: Carvedilol 25 MG Tab PO SCH (07:51)
[2018-07-11] MEDS: Isosorbide Mononitrate 30 MG Tab.ER PO SCH (07:52)
[2018-07-11] MEDS: Aspirin 81 MG Tab.EC PO SCH (07:52)
[2018-07-11] MEDS: Potassium Chloride 10 MEQ Tab.ER PO SCH (07:53)
[2018-07-11] MEDS: Insulin Glargine,Human Rec. Analog 100 Units/ML 3 ML Pen SUBCUT SCH (07:54)
[2018-07-11] MEDS: Insulin Aspart 100 Units/ML 3 ML Pen SUBCUT SCH ×3 (07:54→18:00)
[2018-07-11] MEDS: Omeprazole 20 MG Cap.CR PO SCH ×2 (07:55→20:56)
[2018-07-11] MEDS: Cyanocobalamin (Vitamin B12) 1,000 MCG Tab PO SCH (07:55)
[2018-07-11] MEDS ORDERED: Non-Formulary Medication 1 Each (Potassium Chloride [Potassium Chloride] 10 MEQ) PO SCH (08:00)
[2018-07-11] MEDS: SACUBITRIL PO SCH ×2 (08:15→20:56)
[2018-07-11] MEDS: VALSARTAN PO SCH ×2 (08:15→20:56)
[2018-07-11] MEDS ORDERED: oxyCODONE 5 MG Tab ONE (09:41)
[2018-07-11] MEDS: oxyCODONE 5 MG Tab PO PRN (09:43)
[2018-07-11] MEDS: rOPINIRole 3 MG Tab PO SCH ×2 (09:50→20:53)
[2018-07-11] MEDS ORDERED: rOPINIRole 1 MG Tab ONE ×2 (09:53→20:37)
[2018-07-11] MEDS: Ferrous Sulfate 325 MG Tab PO SCH (12:24)
--- NOTE | 2018-07-11 14:44 | PCM.PN ---
- General Info Date of Service: 07/11/18 Subjective Update: Patient more alert today and actually able to eat by herself. She has concerns of low back and tailbone pain and discomfort. She has decreased appetite and discomfort of the abdomen. Patient has some confusion to the date and time but able to tell the place and season. Functional Status: Reports: Pain Controlled, Tolerating Diet - Review of Systems General: Reports: Weakness HEENT: Reports: No Symptoms Pulmonary: Reports: Shortness of Breath Cardiovascular: Reports: No Symptoms Gastrointestinal: Reports: Abdominal Pain, Decreased Appetite, Nausea Genitourinary: Reports: Incontinence Musculoskeletal: Reports: No Symptoms Neurological: Reports: Confusion, Weakness Psychiatric: Reports: Confusion - Patient Data Vitals - Most Recent: Last Vital Signs Temp 36.2 C 07/11/18 08:00 Pulse 65 07/11/18 08:00 Resp 16 07/11/18 08:00 BP 109/45 L 07/11/18 08:00 Pulse Ox 92 L 07/11/18 08:00 Weight - Most Recent: 99.79 kg I&O - Last 24 Hours: Intake & Output 07/10/18 07/11/18 07/11/18 22:59 06:59 14:59 Intake Total 1200 Balance 1200 Lab Results Last 24 Hours: Laboratory Results - last 24 hr 07/11/18 07/11/18 07/11/18 Range/Units 06:43 07:15 07:15 WBC 6.8 (4.0-11.0) K/uL RBC 3.04 L (3.80-5.80) M/uL Hgb 9.2 L (11.5-16.5) g/dL Hct 30.6 L (37.0-47.0) % MCV 101 H (76-96) fL MCH 30.3 (27.0-32.0) pg MCHC 30.1 L (31.0-35.0) g/dL RDW 17.8 H (11.0-16.0) % Plt Count 90 L (150-500) K/uL MPV 11.3 H (6.0-10.0) fL Neut % (Auto) 78.2 H (45.0-70.0) % Lymph % (Auto) 9.6 L (20.0-40.0) % Coles % (Auto) 9.0 (3.0-10.0) % Eos % (Auto) 2.9 (1.0-5.0) % Baso % (Auto) 0.3 (0.0-0.5) % Neut # (Auto) 5.30 (2.00-7.50) K/uL Lymph # (Auto) 0.65 L (1.50-4.00) K/uL Coles # (Auto) 0.61 (0.20-0.80) K/uL Eos # (Auto) 0.20 (0.04-0.40) K/uL Baso # (Auto) 0.02 (0.02-0.10) K/uL Sodium 141 (136-145) mmol/L Potassium 3.2 L (3.5-5.1) mmol/L Chloride 101 (98-107) mmol/L Carbon Dioxide 31.8 (21.0-32.0) mmol/L Anion Gap 11.4 (5.0-15.0) mmol/L BUN 65 H* (8-26) mg/dL Creatinine 2.33 H (0.55-1.02) mg/dL Est Cr Clr Drug Dosing 18.28 mL/min Estimated GFR (MDRD) 21 L (>60) MLS/MIN BUN/Creatinine Ratio 27.9 H (6-25) Glucose 57 L D (74-100) mg/dL POC Glucose 55 L (74-110) mg/dL Calcium 6.8 L (8.5-10.1) mg/dL Total Bilirubin 0.5 (0.0-1.0) mg/dL AST 100 H (15-37) U/L ALT 433 H (12-78) U/L Alkaline Phosphatase 90 (46-116) U/L Total Protein 5.7 L (6.4-8.2) g/dL Albumin 2.1 L (3.4-5.0) g/dL Globulin 3.6 (2.2-4.2) g/dL Albumin/Globulin Ratio 0.6 L (0.8-2.0) 07/11/18 Range/Units 11:17 WBC (4.0-11.0) K/uL RBC (3.80-5.80) M/uL Hgb (11.5-16.5) g/dL Hct (37.0-47.0) % MCV (76-96) fL MCH (27.0-32.0) pg MCHC (31.0-35.0) g/dL RDW (11.0-16.0) % Plt Count (150-500) K/uL MPV (6.0-10.0) fL Neut % (Auto) (45.0-70.0) % Lymph % (Auto) (20.0-40.0) % Coles % (Auto) (3.0-10.0) % Eos % (Auto) (1.0-5.0) % Baso % (Auto) (0.0-0.5) % Neut # (Auto) (2.00-7.50) K/uL Lymph # (Auto) (1.50-4.00) K/uL Coles # (Auto) (0.20-0.80) K/uL Eos # (Auto) (0.04-0.40) K/uL Baso # (Auto) (0.02-0.10) K/uL Sodium (136-145) mmol/L Potassium (3.5-5.1) mmol/L Chloride (98-107) mmol/L Carbon Dioxide (21.0-32.0) mmol/L Anion Gap (5.0-15.0) mmol/L BUN (8-26) mg/dL Creatinine (0.55-1.02) mg/dL Est Cr Clr Drug Dosing mL/min Estimated GFR (MDRD) (>60) MLS/MIN BUN/Creatinine Ratio (6-25) Glucose (74-100) mg/dL POC Glucose 142 H (74-110) mg/dL Calcium (8.5-10.1) mg/dL Total Bilirubin (0.0-1.0) mg/dL AST (15-37) U/L ALT (12-78) U/L Alkaline Phosphatase (46-116) U/L Total Protein (6.4-8.2) g/dL Albumin (3.4-5.0) g/dL Globulin (2.2-4.2) g/dL Albumin/Globulin Ratio (0.8-2.0) Med Orders - Current: Current Medications Albuterol/Ipratropium (Duoneb 3.0-0.5 Mg/3 Ml) 3 ml INH Q4HR PRN PRN Reason: Dyspnea Aspirin (Halfprin) 81 mg PO DAILY [facility] Last Admin: 07/11/18 07:52 Dose: 81 mg Bumetanide (Bumex) 2 mg PO DAILY [facility] Last Admin: 07/11/18 07:51 Dose: 2 mg Calamine/Phenol (Calmoseptine) 1 - 2 gm TOP TID PRN PRN Reason: RASH Last Admin: 07/08/18 18:07 Dose: 1 gm Carvedilol (Coreg) 25 mg PO DAILY [facility] Last Admin: 07/11/18 07:51 Dose: 25 mg Cyanocobalamin (Vitamin B12) 1,000 mcg PO DAILY [facility] Last Admin: 07/11/18 07:55 Dose: 1,000 mcg Ferrous Sulfate (Ferrous Sulfate) 325 mg PO TuThSa@1200 [facility] Stop: 07/13/18 23:59 Last Admin: 07/11/18 12:24 Dose: 325 mg Ferrous Sulfate (Ferrous Sulfate) 325 mg PO MoWeFr@1200 [facility] Stop: 07/19/18 23:59 Sodium Chloride (Sodium Chloride 0.45%) 1,000 mls @ 100 mls/hr IV ASDIRECTED [facility] Last Admin: 07/11/18 06:28 Dose: 100 mls/hr Insulin Aspart (Novolog) 5 unit SUBCUT TIDMEALS [facility] Last Admin: 07/11/18 12:24 Dose: 5 units Insulin Glargine (Lantus Solostar) 20 units SUBCUT DAILY [facility] Last Admin: 07/11/18 07:54 Dose: Not Given Isosorbide Mononitrate (Imdur) 30 mg PO DAILY [facility] Last Admin: 07/11/18 07:52 Dose: 30 mg Nitroglycerin (Nitrostat) 0.4 mg SL Q5M PRN PRN Reason: angina Sacubitril 49mg/Valsartan 51mg Tablet 1 each PO BID [facility] Last Admin: 07/11/18 08:15 Dose: Not Given Omeprazole (Omeprazole) 40 mg PO BID [facility] Last Admin: 07/11/18 07:55 Dose: 40 mg Oxycodone HCl (Oxycodone) 10 mg PO Q4H PRN PRN Reason: Pain Last Admin: 07/11/18 09:43 Dose: 10 mg Oxycodone/Acetaminophen (Percocet 325-5 Mg) 1 tab PO BID [facility] Last Admin: 07/11/18 07:49 Dose: 1 tab Oxycodone/Acetaminophen (Percocet 325-5 Mg) 1 tab PO TID PRN PRN Reason: Headache/Pain Last Admin: 07/10/18 11:25 Dose: 1 tab Potassium Chloride (Klor-Con 10) 10 meq PO DAILY [facility] Last Admin: 07/11/18 07:53 Dose: 10 meq Ropinirole HCl (Requip) 6 mg PO BID [facility] Last Admin: 07/11/18 09:50 Dose: 6 mg Discontinued Medications Calamine/Phenol (Calmoseptine) 113 gm TOP .STK-MED ONE Stop: 07/08/18 16:06 Carvedilol (Coreg) 25 mg PO DAILY [facility] Last Admin: 07/10/18 08:22 Dose: 25 mg Ferrous Sulfate (Ferrous Sulfate) 325 mg PO DAILY [facility] Last Admin: 07/10/18 20:13 Dose: Not Given Fluticasone Propionate (Flonase) Confirm Administered Dose 16 gm .ROUTE .STK- MED ONE Stop: 07/10/18 04:04 Last Admin: 07/10/18 05:09 Dose: 1 applic Isosorbide Mononitrate (Imdur) Confirm Administered Dose 30 mg .ROUTE .STK-MED ONE Stop: 07/09/18 12:26 Last Admin: 07/09/18 12:39 Dose: Not Given Omeprazole (Omeprazole) 40 mg PO DAILY [facility] Last Admin: 07/10/18 20:14 Dose: Not Given Oxycodone HCl (Oxycodone) Confirm Administered Dose 5 mg .ROUTE .STK-MED ONE Stop: 07/11/18 09:42 Last Admin: 07/11/18 09:49 Dose: Not Given Oxycodone/Acetaminophen (Percocet 325-10 Mg) Confirm Administered Dose 1 tab .ROUTE .STK-MED ONE Stop: 07/08/18 22:56 Last Admin: 07/08/18 22:53 Dose: 1 tab Oxycodone/Acetaminophen (Percocet 325-5 Mg) Confirm Administered Dose 1 tab .ROUTE .STK-MED ONE Stop: 07/09/18 18:36 Last Admin: 07/09/18 18:49 Dose: Not Given Oxycodone/Acetaminophen (Percocet 325-5 Mg) 1 tab PO TID ANNEL Ropinirole HCl (Requip) Confirm Administered Dose 6 mg .ROUTE .Frequency-MED ONE Stop: 07/09/18 19:08 Last Admin: 07/09/18 20:36 Dose: 6 mg Ropinirole HCl (Requip) Confirm Administered Dose 4 mg .ROUTE .Frequency-MED ONE Stop: 07/10/18 07:15 Last Admin: 07/10/18 08:21 Dose: Not Given Ropinirole HCl (Requip) Confirm Administered Dose 6 mg .ROUTE .Frequency-MED ONE Stop: 07/10/18 19:51 Last Admin: 07/10/18 19:57 Dose: 6 mg Ropinirole HCl (Requip) Confirm Administered Dose 6 mg .ROUTE .[place] ONE Stop: 07/11/18 09:54 - Exam Quality Assessment: Supplemental Oxygen General: Alert, Cooperative, Mild Distress. No: Oriented HEENT: Pupils Equal, Pupils Reactive, EOMI, Other (left strabismus) Neck: Supple Lungs: Decreased Breath Sounds, Rhonchi Cardiovascular: Regular Rate, Regular Rhythm GI/Abdominal Exam: Tender, Abnormal Bowel Sounds (decreased) Extremities: Pedal Edema (2+) Peripheral Pulses: 2+: Dorsalis Pedis (L), Dorsalis Pedis (R) Skin: Warm, Dry, Intact Wound/Incisions: Healing Well (b/l leg wounds), Other (heel ulcers healing well ) Neurological: No New Focal Deficit Psy/Mental Status: Alert, Normal Affect, Normal Mood - Problem List & Annotations (1) Anemia SNOMED Code(s): 360180287 Code(s): D64.9 - ANEMIA, UNSPECIFIED Status: Acute Current Visit: Yes Qualifiers: Anemia type: unspecified type Qualified Code(s): D64.9 - Anemia, unspecified (2) COPD, severe SNOMED Code(s): 480873606 Code(s): J44.9 - CHRONIC OBSTRUCTIVE PULMONARY DISEASE, UNSPECIFIED Status : Acute Current Visit: Yes (3) Chronic GERD SNOMED Code(s): 077517049, 245825636 Code(s): K21.9 - GASTRO-ESOPHAGEAL REFLUX DISEASE WITHOUT ESOPHAGITIS Status: Acute Current Visit: Yes (4) Depression SNOMED Code(s): 27136557 Code(s): F32.9 - MAJOR DEPRESSIVE DISORDER, SINGLE EPISODE, UNSPECIFIED Status: Acute Current Visit: Yes Qualifiers: Depression Type: unspecified Qualified Code(s): F32.9 - Major depressive disorder, single episode, unspecified (5) Diabetes SNOMED Code(s): 63195438 Code(s): E11.9 - TYPE 2 DIABETES MELLITUS WITHOUT COMPLICATIONS Status: Acute Current Visit: Yes Qualifiers: Diabetes mellitus type: type 2 Diabetes mellitus intermediate project manager insulin use: with intermediate project manager use Diabetes mellitus complication status: with unspecified complications Qualified Code(s): E11.8 - Type 2 diabetes mellitus with unspecified complications; Z79.4 - shelter (current) use of insulin (6) Diabetic foot ulcer SNOMED Code(s): 822226712 Code(s): E11.621 - TYPE 2 DIABETES MELLITUS WITH FOOT ULCER; L97.509 - NON- PRESSURE CHRONIC ULCER OTH PRT UNSP FOOT W UNSP SEVERITY Status: Acute Current Visit: Yes Qualifiers: Diabetic foot ulcer location: heel Diabetes mellitus type: type 2 Laterality: right Non-pressure ulcer stage: with muscle involvement without evidence of necrosis Qualified Code(s): E11.621 - Type 2 diabetes mellitus with foot ulcer; L97.415 - Non-pressure chronic ulcer of right heel and midfoot with muscle involvement without evidence of necrosis (7) Diabetic retinopathy SNOMED Code(s): 6250798 Code(s): E11.319 - TYPE 2 DIABETES W UNSP DIABETIC RTNOP W/O MACULAR EDEMA Status: Acute Current Visit: Yes Qualifiers: Diabetes mellitus type: type 2 Diabetic retinopathy severity: with unspecified retinopathy severity Diabetes mellitus macular edema: macular edema presence unspecified Laterality: right Qualified Code(s): E11.319 - Type 2 diabetes mellitus with unspecified diabetic retinopathy without macular edema (8) Elevated liver enzymes SNOMED Code(s): 884511982 Code(s): R74.8 - ABNORMAL LEVELS OF OTHER SERUM ENZYMES Status: Acute Current Visit: Yes (9) Fibromyalgia SNOMED Code(s): 186604835 Code(s): M79.7 - FIBROMYALGIA Status: Acute Current Visit: Yes (10) Hypercholesteremia SNOMED Code(s): 25459030 Code(s): E78.00 - PURE HYPERCHOLESTEROLEMIA, UNSPECIFIED Status: Acute Current Visit: Yes (11) Hypernatremia SNOMED Code(s): 035497723 Code(s): E87.0 - HYPEROSMOLALITY AND HYPERNATREMIA Status: Acute Current Visit: Yes (12) Hypertension SNOMED Code(s): 72998268 Code(s): I10 - ESSENTIAL (PRIMARY) HYPERTENSION Status: Acute Current Visit: Yes Annotation/Comment:: 04/26/17 - 1. Extremely eleveated blood sugar, 2. Renal failure/insufficiency, 3. High potassium level, 4. Known chronic obstructive pulmonary disease, 5. Type 2 diabetes, 6. Hypertension, 7. Chronic back pain, 8. Restless leg syndrome and insomnia. (13) Metastatic cancer SNOMED Code(s): 895022318 Code(s): C79.9 - SECONDARY MALIGNANT NEOPLASM OF UNSPECIFIED SITE Status: Acute Current Visit: Yes (14) Need for comfort care SNOMED Code(s): 051919210, 149501004 Code(s): RPS7716 - Status: Acute Current Visit: Yes (15) Palliative care patient SNOMED Code(s): 778533962 Code(s): Z51.5 - ENCOUNTER FOR PALLIATIVE CARE Status: Acute Current Visit: Yes (16) Palliative care status SNOMED Code(s): 767906083 Code(s): Z51.5 - ENCOUNTER FOR PALLIATIVE CARE Status: Acute Current Visit: Yes (17) Pulmonary HTN SNOMED Code(s): 78207998 Code(s): I27.20 - PULMONARY HYPERTENSION, UNSPECIFIED Status: Acute Current Visit: Yes (18) Renal failure (ARF), acute on chronic SNOMED Code(s): 454938974 Code(s): N17.9 - ACUTE KIDNEY FAILURE, UNSPECIFIED; N18.9 - CHRONIC KIDNEY DISEASE, UNSPECIFIED Status: Acute Current Visit: Yes Qualifiers: Acute renal failure type: unspecified Chronic kidney disease stage: stage 4 (severe) Qualified Code(s): N17.9 - Acute kidney failure, unspecified; N18.4 - Chronic kidney disease, stage 4 (severe) (19) Restless leg syndrome SNOMED Code(s): 03801691 Code(s): G25.81 - RESTLESS LEGS SYNDROME Status: Acute Current Visit: Yes Annotation/Comment:: 04/26/17 - 1. Extremely eleveated blood sugar, 2. Renal failure/insufficiency, 3. High potassium level, 4. Known chronic obstructive pulmonary disease, 5. Type 2 diabetes, 6. Hypertension, 7. Chronic back pain, 8. Restless leg syndrome and insomnia. (20) Sleep apnea SNOMED Code(s): 17227244 Code(s): G47.30 - SLEEP APNEA, UNSPECIFIED Status: Acute Current Visit: Yes Qualifiers: Sleep apnea type: unspecified type Qualified Code(s): G47.30 - Sleep apnea , unspecified (21) Thrombocytopenia SNOMED Code(s): 141041450 Code(s): D69.6 - THROMBOCYTOPENIA, UNSPECIFIED Status: Acute Current Visit: Yes (22) Urinary incontinence SNOMED Code(s): 748844872 Code(s): R32 - UNSPECIFIED URINARY INCONTINENCE Status: Acute Current Visit: Yes Qualifiers: Urinary Incontinence type: unspecified incontinence Qualified Code(s): R32 - Unspecified urinary incontinence (23) CHF (congestive heart failure) SNOMED Code(s): 32313335 Code(s): I50.9 - HEART FAILURE, UNSPECIFIED Status: Chronic Priority: High Current Visit: Yes Qualifiers: Heart failure type: unspecified Heart failure chronicity: chronic Qualified Code(s): I50.9 - Heart failure, unspecified (24) Chronic back pain SNOMED Code(s): 002419652 Code(s): M54.9 - DORSALGIA, UNSPECIFIED; G89.29 - OTHER CHRONIC PAIN Status : Acute Current Visit: No Annotation/Comment:: 04/26/17 - 1. Extremely eleveated blood sugar, 2. Renal failure/insufficiency, 3. High potassium level, 4. Known chronic obstructive pulmonary disease, 5. Type 2 diabetes, 6. Hypertension, 7. Chronic back pain, 8. Restless leg syndrome and insomnia. (25) Insomnia SNOMED Code(s): 821171278 Code(s): G47.00 - INSOMNIA, UNSPECIFIED Status: Acute Current Visit: No Annotation/Comment:: 04/26/17 - 1. Extremely eleveated blood sugar, 2. Renal failure/insufficiency, 3. High potassium level, 4. Known chronic obstructive pulmonary disease, 5. Type 2 diabetes, 6. Hypertension, 7. Chronic back pain, 8. Restless leg syndrome and insomnia. - Problem List Review Problem List Initiated/Reviewed/Updated: Yes - My Orders Last 24 Hours: My Active Orders 07/11/18 08:00 Blood Glucose Check, Bedside [RC] , Carvedilol [Coreg] 25 mg PO DAILY Cyanocobalamin (Vitamin B12) [Vitamin B12] 1,000 mcg PO DAILY 07/11/18 09:38 oxyCODONE 10 mg PO Q4H PRN 07/12/18 05:11 CBC WITH AUTO DIFF [HEME] AM COMPREHENSIVE METABOLIC PN,CMP [CHEM] AM 07/15/18 12:00 Ferrous Sulfate 325 mg PO MoWeFr@1200 - Plan Plan:: Patient continued on hydration and lab f/u. There has been some improvement in labs for renal dysfunction and liver dysfunction. Pain controlled. Patient continues to be weak - continue PT/OT. We will monitor status closely. Patient is palliative but family would like to continue supportive IVF and other medications and measures that may improve her quality of life during this time. 07/10/18 Renal function continues to improve. Liver function continues to improve. Anemia - we will continue to monitor for further management. COPD - continue oxygen as needed and nebulizers. Severe deconditioning - PT/OT as tolerated. Metastatic cancer - palliative care. Hypernatremia - resolved with hydration and current management. We will continue to follow. Leg wounds - PT wound care Heel ulcerations - PT wound care. groin and decubitus stage 1 ulcer on admission - Navarro placed and hygiene cares in place. Confusion - we will reassess as her labs improve. Pain management - Percocet BID at this time and titrate accordingly. 07/11/18 Renal function stable and slightly improved. Liver function improving but still elevated. Anemia slightly worse - continue monitoring for symptoms and repeat H/H. COPD - continue oxygen and nebulizer management. Severe deconditioning - PT/OT needed. Patient willing to try and work with PT/ OT as able to but she remains very weak and may not be able to tolerate lengthy PT. Metastatic adenocarcinoma of the colon to liver. - Palliative care Hypernatremia - Resolved. Leg wounds - wound care and dressing. Heel ulcerations - continue wound care - consider Unna boots Groin and decubitus stage one ulcer on admission - Continue navarro and hygiene cares. Confusion/Delirium - Improved greatly Pain Management - tolerating oxycodone, may need further management as needed. Patient is very weak and unable to get up without assistance. She is a great fall risk and needs assistance for all her needs. Her life expectancy is less than 6 months.
[2018-07-12] MEDS: Sodium Chloride 0.45% 1,000 ML IV SCH (02:20)
[2018-07-12] MEDS: VALSARTAN PO SCH ×2 (08:21→22:11)
[2018-07-12] MEDS: rOPINIRole 3 MG Tab PO SCH ×2 (08:21→22:10)
[2018-07-12] MEDS: SACUBITRIL PO SCH ×2 (08:21→22:11)
[2018-07-12] MEDS: Aspirin 81 MG Tab.EC PO SCH (08:21)
[2018-07-12] MEDS: Bumetanide 1 MG Tab PO SCH (08:21)
[2018-07-12] MEDS: Isosorbide Mononitrate 30 MG Tab.ER PO SCH (08:22)
[2018-07-12] MEDS: Potassium Chloride 10 MEQ Tab.ER PO SCH ×3 (08:22→20:45)
[2018-07-12] MEDS: Acetaminophen/oxyCODONE 325-5 MG Tab PO SCH ×2 (08:22→20:45)
[2018-07-12] MEDS: Cyanocobalamin (Vitamin B12) 1,000 MCG Tab PO SCH (08:22)
[2018-07-12] MEDS: Carvedilol 25 MG Tab PO SCH (08:23)
[2018-07-12] MEDS: Omeprazole 20 MG Cap.CR PO SCH ×2 (08:23→20:45)
[2018-07-12] MEDS: oxyCODONE 5 MG Tab PO PRN ×2 (10:35→21:55)
[2018-07-12] MEDS: Insulin Glargine,Human Rec. Analog 100 Units/ML 3 ML Pen SUBCUT SCH (10:36)
[2018-07-12] MEDS: Insulin Aspart 100 Units/ML 3 ML Pen SUBCUT SCH ×3 (10:36→19:55)
--- NOTE | 2018-07-12 11:53 | PCM.PN ---
- General Info Date of Service: 07/12/18 Subjective Update: Patient continues to have lower back pain. She states she tried to work with Physical Therapy but unable to work very long before she is too weak to continue. Patient is tolerating her diet. She states she feels about the same but clinically she is eating and sitting up more and more alert. She denies any fever and does have chronic shortness of breath. Functional Status: Reports: Pain Controlled, Tolerating Diet - Review of Systems General: Reports: Weakness HEENT: Reports: No Symptoms Pulmonary: Reports: Shortness of Breath Cardiovascular: Reports: No Symptoms Gastrointestinal: Reports: No Symptoms Genitourinary: Reports: No Symptoms Musculoskeletal: Reports: Back Pain Skin: Reports: No Symptoms Neurological: Reports: Weakness - Patient Data Vitals - Most Recent: Last Vital Signs Temp 36.6 C 07/12/18 04:00 Pulse 67 07/12/18 08:23 Resp 18 07/12/18 04:00 BP 154/69 H 07/12/18 08:23 Pulse Ox 94 L 07/12/18 04:00 Weight - Most Recent: 99.79 kg I&O - Last 24 Hours: Intake & Output 07/11/18 07/12/18 07/12/18 22:59 06:59 14:59 Intake Total 1440 Output Total 1300 Balance 140 Lab Results Last 24 Hours: Laboratory Results - last 24 hr 07/11/18 07/12/18 07/12/18 Range/Units 11:17 06:20 07:45 WBC 7.9 (4.0-11.0) K/uL RBC 3.32 L (3.80-5.80) M/uL Hgb 9.9 L (11.5-16.5) g/dL Hct 32.4 L (37.0-47.0) % MCV 98 H (76-96) fL MCH 29.8 (27.0-32.0) pg MCHC 30.6 L (31.0-35.0) g/dL RDW 17.6 H (11.0-16.0) % Plt Count 99 L (150-500) K/uL MPV 11.5 H (6.0-10.0) fL Neut % (Auto) 78.4 H (45.0-70.0) % Lymph % (Auto) 9.6 L (20.0-40.0) % [place] % (Auto) 7.2 (3.0-10.0) % Eos % (Auto) 4.7 (1.0-5.0) % Baso % (Auto) 0.1 (0.0-0.5) % Neut # (Auto) 6.18 (2.00-7.50) K/uL Lymph # (Auto) 0.76 L (1.50-4.00) K/uL [place] # (Auto) 0.57 (0.20-0.80) K/uL Eos # (Auto) 0.37 (0.04-0.40) K/uL Baso # (Auto) 0.01 L (0.02-0.10) K/uL Sodium (136-145) mmol/L Potassium (3.5-5.1) mmol/L Chloride (98-107) mmol/L Carbon Dioxide (21.0-32.0) mmol/L Anion Gap (5.0-15.0) mmol/L BUN (8-26) mg/dL Creatinine (0.55-1.02) mg/dL Est Cr Clr Drug Dosing mL/min Estimated GFR (MDRD) (>60) MLS/MIN BUN/Creatinine Ratio (6-25) Glucose (74-100) mg/dL POC Glucose 142 H 118 H (74-110) mg/dL Calcium (8.5-10.1) mg/dL Total Bilirubin (0.0-1.0) mg/dL AST (15-37) U/L ALT (12-78) U/L Alkaline Phosphatase (46-116) U/L Total Protein (6.4-8.2) g/dL Albumin (3.4-5.0) g/dL Globulin (2.2-4.2) g/dL Albumin/Globulin Ratio (0.8-2.0) 07/12/18 Range/Units 07:45 WBC (4.0-11.0) K/uL RBC (3.80-5.80) M/uL Hgb (11.5-16.5) g/dL Hct (37.0-47.0) % MCV (76-96) fL MCH (27.0-32.0) pg MCHC (31.0-35.0) g/dL RDW (11.0-16.0) % Plt Count (150-500) K/uL MPV (6.0-10.0) fL Neut % (Auto) (45.0-70.0) % Lymph % (Auto) (20.0-40.0) % [place] % (Auto) (3.0-10.0) % Eos % (Auto) (1.0-5.0) % Baso % (Auto) (0.0-0.5) % Neut # (Auto) (2.00-7.50) K/uL Lymph # (Auto) (1.50-4.00) K/uL [place] # (Auto) (0.20-0.80) K/uL Eos # (Auto) (0.04-0.40) K/uL Baso # (Auto) (0.02-0.10) K/uL Sodium 138 (136-145) mmol/L Potassium 2.8 L* (3.5-5.1) mmol/L Chloride 100 (98-107) mmol/L Carbon Dioxide 31.6 (21.0-32.0) mmol/L Anion Gap 9.2 (5.0-15.0) mmol/L BUN 62 H* (8-26) mg/dL Creatinine 2.08 H (0.55-1.02) mg/dL Est Cr Clr Drug Dosing 20.47 mL/min Estimated GFR (MDRD) 24 L (>60) MLS/MIN BUN/Creatinine Ratio 29.8 H (6-25) Glucose 105 H D (74-100) mg/dL POC Glucose (74-110) mg/dL Calcium 7.0 L (8.5-10.1) mg/dL Total Bilirubin 0.6 (0.0-1.0) mg/dL AST 52 H (15-37) U/L ALT 321 H (12-78) U/L Alkaline Phosphatase 88 (46-116) U/L Total Protein 6.1 L (6.4-8.2) g/dL Albumin 2.2 L (3.4-5.0) g/dL Globulin 3.9 (2.2-4.2) g/dL Albumin/Globulin Ratio 0.6 L (0.8-2.0) Med Orders - Current: Current Medications Albuterol/Ipratropium (Duoneb 3.0-0.5 Mg/3 Ml) 3 ml INH Q4HR PRN PRN Reason: Dyspnea Last Admin: 07/11/18 15:45 Dose: 3 ml Aspirin (Halfprin) 81 mg PO DAILY [facility] Last Admin: 07/12/18 08:21 Dose: 81 mg Bumetanide (Bumex) 2 mg PO DAILY [facility] Last Admin: 07/12/18 08:21 Dose: 2 mg Calamine/Phenol (Calmoseptine) 1 - 2 gm TOP TID PRN PRN Reason: RASH Last Admin: 07/08/18 18:07 Dose: 1 gm Carvedilol (Coreg) 25 mg PO DAILY [facility] Last Admin: 07/12/18 08:23 Dose: 25 mg Cyanocobalamin (Vitamin B12) 1,000 mcg PO DAILY [facility] Last Admin: 07/12/18 08:22 Dose: 1,000 mcg Ferrous Sulfate (Ferrous Sulfate) 325 mg PO TuThSa@1200 [facility] Stop: 07/13/18 23:59 Last Admin: 07/11/18 12:24 Dose: 325 mg Ferrous Sulfate (Ferrous Sulfate) 325 mg PO MoWeFr@1200 [facility] Stop: 07/19/18 23:59 Sodium Chloride (Sodium Chloride 0.45%) 1,000 mls @ 100 mls/hr IV ASDIRECTED [facility] Last Admin: 07/12/18 02:20 Dose: 100 mls/hr Insulin Aspart (Novolog) 5 unit SUBCUT TIDMEALS [facility] Last Admin: 07/12/18 10:36 Dose: Not Given Insulin Glargine (Lantus Solostar) 20 units SUBCUT DAILY [facility] Last Admin: 07/12/18 10:36 Dose: Not Given Isosorbide Mononitrate (Imdur) 30 mg PO DAILY [facility] Last Admin: 07/12/18 08:22 Dose: 30 mg Nitroglycerin (Nitrostat) 0.4 mg SL Q5M PRN PRN Reason: angina Sacubitril 49mg/Valsartan 51mg Tablet 1 each PO BID [facility] Last Admin: 07/12/18 08:21 Dose: 1 each Omeprazole (Omeprazole) 40 mg PO BID [facility] Last Admin: 07/12/18 08:23 Dose: 40 mg Oxycodone HCl (Oxycodone) 10 mg PO Q4H PRN PRN Reason: Pain Last Admin: 07/12/18 10:35 Dose: 10 mg Oxycodone/Acetaminophen (Percocet 325-5 Mg) 1 tab PO BID [facility] Last Admin: 07/12/18 08:22 Dose: 1 tab Oxycodone/Acetaminophen (Percocet 325-5 Mg) 1 tab PO TID PRN PRN Reason: Headache/Pain Last Admin: 07/10/18 11:25 Dose: 1 tab Potassium Chloride (Klor-Con 10) 10 meq PO DAILY [facility] Last Admin: 07/12/18 08:22 Dose: 10 meq Ropinirole HCl (Requip) 6 mg PO BID [facility] Last Admin: 07/12/18 08:21 Dose: 6 mg Discontinued Medications Calamine/Phenol (Calmoseptine) 113 gm TOP .STK-MED ONE Stop: 07/08/18 16:06 Carvedilol (Coreg) 25 mg PO DAILY [facility] Last Admin: 07/10/18 08:22 Dose: 25 mg Ferrous Sulfate (Ferrous Sulfate) 325 mg PO DAILY [facility] Last Admin: 07/10/18 20:13 Dose: Not Given Fluticasone Propionate (Flonase) Confirm Administered Dose 16 gm .ROUTE .STK- MED ONE Stop: 07/10/18 04:04 Last Admin: 07/10/18 05:09 Dose: 1 applic Isosorbide Mononitrate (Imdur) Confirm Administered Dose 30 mg .ROUTE .STK-MED ONE Stop: 07/09/18 12:26 Last Admin: 07/09/18 12:39 Dose: Not Given Omeprazole (Omeprazole) 40 mg PO DAILY [facility] Last Admin: 07/10/18 20:14 Dose: Not Given Oxycodone HCl (Oxycodone) Confirm Administered Dose 5 mg .ROUTE .STK-MED ONE Stop: 07/11/18 09:42 Last Admin: 07/11/18 09:49 Dose: Not Given Oxycodone/Acetaminophen (Percocet 325-10 Mg) Confirm Administered Dose 1 tab .ROUTE .STK-MED ONE Stop: 07/08/18 22:56 Last Admin: 07/08/18 22:53 Dose: 1 tab Oxycodone/Acetaminophen (Percocet 325-5 Mg) Confirm Administered Dose 1 tab .ROUTE .STK-MED ONE Stop: 07/09/18 18:36 Last Admin: 07/09/18 18:49 Dose: Not Given Oxycodone/Acetaminophen (Percocet 325-5 Mg) 1 tab PO TID [facility] Ropinirole HCl (Requip) Confirm Administered Dose 6 mg .ROUTE .STK-MED ONE Stop: 07/09/18 19:08 Last Admin: 07/09/18 20:36 Dose: 6 mg Ropinirole HCl (Requip) Confirm Administered Dose 4 mg .ROUTE .STK-MED ONE Stop: 07/10/18 07:15 Last Admin: 07/10/18 08:21 Dose: Not Given Ropinirole HCl (Requip) Confirm Administered Dose 6 mg .ROUTE .STK-MED ONE Stop: 07/10/18 19:51 Last Admin: 07/10/18 19:57 Dose: 6 mg Ropinirole HCl (Requip) Confirm Administered Dose 6 mg .ROUTE .STFiksu-MED ONE Stop: 07/11/18 09:54 Last Admin: 07/11/18 10:00 Dose: Not Given Ropinirole HCl (Requip) Confirm Administered Dose 4 mg .ROUTE .STFiksu-MED ONE Stop: 07/11/18 20:38 Last Admin: 07/11/18 20:59 Dose: Not Given - Exam Quality Assessment: Supplemental Oxygen General: Alert, Oriented, Cooperative HEENT: Pupils Equal, Pupils Reactive, EOMI Neck: Supple Lungs: Clear to Auscultation, Decreased Breath Sounds Cardiovascular: Regular Rate, Regular Rhythm GI/Abdominal Exam: Normal Bowel Sounds, Soft Extremities: Pedal Edema (2+) Peripheral Pulses: 2+: Dorsalis Pedis (L), Dorsalis Pedis (R) - Problem List & Annotations (1) Anemia SNOMED Code(s): 614362621 Code(s): D64.9 - ANEMIA, UNSPECIFIED Status: Acute Current Visit: Yes Qualifiers: Anemia type: unspecified type Qualified Code(s): D64.9 - Anemia, unspecified (2) COPD, severe SNOMED Code(s): 829889249 Code(s): J44.9 - CHRONIC OBSTRUCTIVE PULMONARY DISEASE, UNSPECIFIED Status : Acute Current Visit: Yes (3) Chronic GERD SNOMED Code(s): 101164885, 466893373 Code(s): K21.9 - GASTRO-ESOPHAGEAL REFLUX DISEASE WITHOUT ESOPHAGITIS Status: Acute Current Visit: Yes (4) Depression SNOMED Code(s): 52007529 Code(s): F32.9 - MAJOR DEPRESSIVE DISORDER, SINGLE EPISODE, UNSPECIFIED Status: Acute Current Visit: Yes Qualifiers: Depression Type: unspecified Qualified Code(s): F32.9 - Major depressive disorder, single episode, unspecified (5) Diabetes SNOMED Code(s): 88276359 Code(s): E11.9 - TYPE 2 DIABETES MELLITUS WITHOUT COMPLICATIONS Status: Acute Current Visit: Yes Qualifiers: Diabetes mellitus type: type 2 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 Diabetes mellitus complication status: with unspecified complications Qualified Code(s): E11.8 - Type 2 diabetes mellitus with unspecified complications; 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 (6) Diabetic foot ulcer SNOMED Code(s): 390101073 Code(s): E11.621 - TYPE 2 DIABETES MELLITUS WITH FOOT ULCER; L97.509 - NON- PRESSURE CHRONIC ULCER OTH PRT UNSP FOOT W UNSP SEVERITY Status: Acute Current Visit: Yes Qualifiers: Diabetic foot ulcer location: heel Diabetes mellitus type: type 2 Laterality: right Non-pressure ulcer stage: with muscle involvement without evidence of necrosis Qualified Code(s): E11.621 - Type 2 diabetes mellitus with foot ulcer; L97.415 - Non-pressure chronic ulcer of right heel and midfoot with muscle involvement without evidence of necrosis (7) Diabetic retinopathy SNOMED Code(s): 9438538 Code(s): E11.319 - TYPE 2 DIABETES W UNSP DIABETIC RTNOP W/O MACULAR EDEMA Status: Acute Current Visit: Yes Qualifiers: Diabetes mellitus type: type 2 Diabetic retinopathy severity: with unspecified retinopathy severity Diabetes mellitus macular edema: macular edema presence unspecified Laterality: right Qualified Code(s): E11.319 - Type 2 diabetes mellitus with unspecified diabetic retinopathy without macular edema (8) Elevated liver enzymes SNOMED Code(s): 200612289 Code(s): R74.8 - ABNORMAL LEVELS OF OTHER SERUM ENZYMES Status: Acute Current Visit: Yes (9) Fibromyalgia SNOMED Code(s): 802155353 Code(s): M79.7 - FIBROMYALGIA Status: Acute Current Visit: Yes (10) Hypercholesteremia SNOMED Code(s): 65941351 Code(s): E78.00 - PURE HYPERCHOLESTEROLEMIA, UNSPECIFIED Status: Acute Current Visit: Yes (11) Hypernatremia SNOMED Code(s): 900712989 Code(s): E87.0 - HYPEROSMOLALITY AND HYPERNATREMIA Status: Acute Current Visit: Yes (12) Hypertension SNOMED Code(s): 08573538 Code(s): I10 - ESSENTIAL (PRIMARY) HYPERTENSION Status: Acute Current Visit: Yes Annotation/Comment:: 04/26/17 - 1. Extremely eleveated blood sugar, 2. Renal failure/insufficiency, 3. High potassium level, 4. Known chronic obstructive pulmonary disease, 5. Type 2 diabetes, 6. Hypertension, 7. Chronic back pain, 8. Restless leg syndrome and insomnia. (13) Metastatic cancer SNOMED Code(s): 634237060 Code(s): C79.9 - SECONDARY MALIGNANT NEOPLASM OF UNSPECIFIED SITE Status: Acute Current Visit: Yes (14) Need for comfort care SNOMED Code(s): 273047507, 986570669 Code(s): QVP9871 - Status: Acute Current Visit: Yes (15) Palliative care patient SNOMED Code(s): 753768037 Code(s): Z51.5 - ENCOUNTER FOR PALLIATIVE CARE Status: Acute Current Visit: Yes (16) Palliative care status SNOMED Code(s): 480529542 Code(s): Z51.5 - ENCOUNTER FOR PALLIATIVE CARE Status: Acute Current Visit: Yes (17) Pulmonary HTN SNOMED Code(s): 10355855 Code(s): I27.20 - PULMONARY HYPERTENSION, UNSPECIFIED Status: Acute Current Visit: Yes (18) Renal failure (ARF), acute on chronic SNOMED Code(s): 735832982 Code(s): N17.9 - ACUTE KIDNEY FAILURE, UNSPECIFIED; N18.9 - CHRONIC KIDNEY DISEASE, UNSPECIFIED Status: Acute Current Visit: Yes Qualifiers: Acute renal failure type: unspecified Chronic kidney disease stage: stage 4 (severe) Qualified Code(s): N17.9 - Acute kidney failure, unspecified; N18.4 - Chronic kidney disease, stage 4 (severe) (19) Restless leg syndrome SNOMED Code(s): 40402448 Code(s): G25.81 - RESTLESS LEGS SYNDROME Status: Acute Current Visit: Yes Annotation/Comment:: 04/26/17 - 1. Extremely eleveated blood sugar, 2. Renal failure/insufficiency, 3. High potassium level, 4. Known chronic obstructive pulmonary disease, 5. Type 2 diabetes, 6. Hypertension, 7. Chronic back pain, 8. Restless leg syndrome and insomnia. (20) Sleep apnea SNOMED Code(s): 46875888 Code(s): G47.30 - SLEEP APNEA, UNSPECIFIED Status: Acute Current Visit: Yes Qualifiers: Sleep apnea type: unspecified type Qualified Code(s): G47.30 - Sleep apnea , unspecified (21) Thrombocytopenia SNOMED Code(s): 530609216 Code(s): D69.6 - THROMBOCYTOPENIA, UNSPECIFIED Status: Acute Current Visit: Yes (22) Urinary incontinence SNOMED Code(s): 946542735 Code(s): R32 - UNSPECIFIED URINARY INCONTINENCE Status: Acute Current Visit: Yes Qualifiers: Urinary Incontinence type: unspecified incontinence Qualified Code(s): R32 - Unspecified urinary incontinence (23) CHF (congestive heart failure) SNOMED Code(s): 03522282 Code(s): I50.9 - HEART FAILURE, UNSPECIFIED Status: Chronic Priority: High Current Visit: Yes Qualifiers: Heart failure type: unspecified Heart failure chronicity: chronic Qualified Code(s): I50.9 - Heart failure, unspecified (24) Chronic back pain SNOMED Code(s): 391669070 Code(s): M54.9 - DORSALGIA, UNSPECIFIED; G89.29 - OTHER CHRONIC PAIN Status : Acute Current Visit: No Annotation/Comment:: 04/26/17 - 1. Extremely eleveated blood sugar, 2. Renal failure/insufficiency, 3. High potassium level, 4. Known chronic obstructive pulmonary disease, 5. Type 2 diabetes, 6. Hypertension, 7. Chronic back pain, 8. Restless leg syndrome and insomnia. (25) Insomnia SNOMED Code(s): 544520541 Code(s): G47.00 - INSOMNIA, UNSPECIFIED Status: Acute Current Visit: No Annotation/Comment:: 04/26/17 - 1. Extremely eleveated blood sugar, 2. Renal failure/insufficiency, 3. High potassium level, 4. Known chronic obstructive pulmonary disease, 5. Type 2 diabetes, 6. Hypertension, 7. Chronic back pain, 8. Restless leg syndrome and insomnia. - Problem List Review Problem List Initiated/Reviewed/Updated: Yes - My Orders Last 24 Hours: My Active Orders 07/12/18 10:51 Ready for Discharge [RC] PER UNIT ROUTINE 07/13/18 09:00 CBC WITH AUTO DIFF [HEME] DAILY COMPREHENSIVE METABOLIC PN,CMP [CHEM] DAILY 07/14/18 09:00 CBC WITH AUTO DIFF [HEME] DAILY COMPREHENSIVE METABOLIC PN,CMP [CHEM] DAILY 07/15/18 09:00 CBC WITH AUTO DIFF [HEME] DAILY COMPREHENSIVE METABOLIC PN,CMP [CHEM] DAILY 07/15/18 12:00 Ferrous Sulfate 325 mg PO MoWeFr@1200 - Plan Plan:: Patient continued on hydration and lab f/u. There has been some improvement in labs for renal dysfunction and liver dysfunction. Pain controlled. Patient continues to be weak - continue PT/OT. We will monitor status closely. Patient is palliative but family would like to continue supportive IVF and other medications and measures that may improve her quality of life during this time. 07/10/18 Renal function continues to improve. Liver function continues to improve. Anemia - we will continue to monitor for further management. COPD - continue oxygen as needed and nebulizers. Severe deconditioning - PT/OT as tolerated. Metastatic cancer - palliative care. Hypernatremia - resolved with hydration and current management. We will continue to follow. Leg wounds - PT wound care Heel ulcerations - PT wound care. groin and decubitus stage 1 ulcer on admission - Navarro placed and hygiene cares in place. Confusion - we will reassess as her labs improve. Pain management - Percocet BID at this time and titrate accordingly. 07/11/18 Renal function stable and slightly improved. Liver function improving but still elevated. Anemia slightly worse - continue monitoring for symptoms and repeat H/H. COPD - continue oxygen and nebulizer management. Severe deconditioning - PT/OT needed. Patient willing to try and work with PT/ OT as able to but she remains very weak and may not be able to tolerate lengthy PT. Metastatic adenocarcinoma of the colon to liver. - Palliative care Hypernatremia - Resolved. Leg wounds - wound care and dressing. Heel ulcerations - continue wound care - consider Unna boots Groin and decubitus stage one ulcer on admission - Continue navarro and hygiene cares. Confusion/Delirium - Improved greatly Pain Management - tolerating oxycodone, may need further management as needed. Patient is very weak and unable to get up without assistance. She is a great fall risk and needs assistance for all her needs. Her life expectancy is less than 6 months. 07/12/18 Renal function stable and slightly improved with IVF hydration. Hypokalemia - patient has been on 10meq and we will increase to TID and adjust IVF with 10meq KCl. Liver function improving but still elevated. The liver enzymes have improved daily but still remain elevated. Anemia improved today - continue monitoring for symptoms and repeat H/H. COPD - continue oxygen and nebulizer management. Severe deconditioning - PT/OT needed. Patient willing to try and work with PT/ OT as able to but she remains very weak and has not been able to tolerate lengthy PT. Patient is just too weak. Counseled on continuing to work with PT/ OT but this may not be possible. Metastatic adenocarcinoma of the colon to liver. - Palliative care Hypernatremia - Resolved. Leg wounds - wound care and dressing. Heel ulcerations - continue wound care - consider Unna boots Groin and decubitus stage one ulcer on admission - Continue navarro and hygiene cares. Confusion/Delirium - Improved greatly, she is more alert every day. Pain Management - tolerating oxycodone, may need further management as needed. Patient is very weak and unable to get up without assistance. She is a great fall risk and needs assistance for all her needs. Her life expectancy is less than 6 months. Her prior level of function is wheelchair bound, multiple falls at home with incontinence(patient has been incontinent for the past year) and is unable to care for her. She uses a wheelchair all the time at home and has 24hr home oxygen 2L. There is no home support as [facility] has no hospice and no home health care available for her. She is in dire need for further cares and eventual hospice care. [facility] recently denied her admission to hospice.
[2018-07-12] MEDS: NS + KCl 20mEq/L 1,000 ML IV SCH ×2 (14:05→23:50)
[2018-07-12] MEDS ORDERED: rOPINIRole 1 MG Tab ONE (22:00)
[2018-07-13] MEDS: VALSARTAN PO SCH ×2 (08:54→19:45)
[2018-07-13] MEDS: rOPINIRole 3 MG Tab PO SCH ×2 (08:54→19:45)
[2018-07-13] MEDS: SACUBITRIL PO SCH ×2 (08:54→19:45)
[2018-07-13] MEDS: Bumetanide 1 MG Tab PO SCH (08:54)
[2018-07-13] MEDS: Aspirin 81 MG Tab.EC PO SCH (08:55)
[2018-07-13] MEDS: Potassium Chloride 10 MEQ Tab.ER PO SCH ×3 (08:55→19:45)
[2018-07-13] MEDS: Acetaminophen/oxyCODONE 325-5 MG Tab PO SCH ×2 (08:56→19:43)
[2018-07-13] MEDS: Cyanocobalamin (Vitamin B12) 1,000 MCG Tab PO SCH (08:56)
[2018-07-13] MEDS: Isosorbide Mononitrate 30 MG Tab.ER PO SCH (08:57)
[2018-07-13] MEDS: Insulin Glargine,Human Rec. Analog 100 Units/ML 3 ML Pen SUBCUT SCH (08:57)
[2018-07-13] MEDS: Omeprazole 20 MG Cap.CR PO SCH ×2 (08:57→19:45)
[2018-07-13] MEDS: Insulin Aspart 100 Units/ML 3 ML Pen SUBCUT SCH ×3 (08:58→18:39)
[2018-07-13] MEDS: Carvedilol 25 MG Tab PO SCH (08:58)
[2018-07-13] MEDS: Ferrous Sulfate 325 MG Tab PO SCH (12:11)
[2018-07-14] MEDS ORDERED: Bisacodyl 10 MG Supp ONE (07:21)
[2018-07-14] MEDS: Bumetanide 1 MG Tab PO SCH (08:34)
[2018-07-14] MEDS: Carvedilol 25 MG Tab PO SCH (08:35)
[2018-07-14] MEDS: Aspirin 81 MG Tab.EC PO SCH (08:36)
[2018-07-14] MEDS: Isosorbide Mononitrate 30 MG Tab.ER PO SCH (08:37)
[2018-07-14] MEDS: Potassium Chloride 10 MEQ Tab.ER PO SCH ×3 (08:37→20:08)
[2018-07-14] MEDS: VALSARTAN PO SCH ×2 (08:38→20:08)
[2018-07-14] MEDS: SACUBITRIL PO SCH ×2 (08:38→20:08)
[2018-07-14] MEDS: Omeprazole 20 MG Cap.CR PO SCH ×2 (08:39→20:08)
[2018-07-14] MEDS: Acetaminophen/oxyCODONE 325-5 MG Tab PO SCH ×2 (08:42→20:07)
[2018-07-14] MEDS: rOPINIRole 3 MG Tab PO SCH ×2 (08:44→20:08)
[2018-07-14] MEDS: Cyanocobalamin (Vitamin B12) 1,000 MCG Tab PO SCH (08:44)
[2018-07-14] MEDS: Insulin Glargine,Human Rec. Analog 100 Units/ML 3 ML Pen SUBCUT SCH (08:53)
[2018-07-14] MEDS: Insulin Aspart 100 Units/ML 3 ML Pen SUBCUT SCH ×3 (08:56→17:40)
[2018-07-14] MEDS ORDERED: Sodium Chloride 0.9% 10 ML Syringe FLUSH PRN (20:05)
[2018-07-15] MEDS: oxyCODONE 5 MG Tab PO PRN ×2 (02:24→11:43)
[2018-07-15] MEDS: Carvedilol 25 MG Tab PO SCH (07:44)
[2018-07-15] MEDS: Aspirin 81 MG Tab.EC PO SCH (07:44)
[2018-07-15] MEDS: Cyanocobalamin (Vitamin B12) 1,000 MCG Tab PO SCH (07:44)
[2018-07-15] MEDS: Bumetanide 1 MG Tab PO SCH (07:44)
[2018-07-15] MEDS: Omeprazole 20 MG Cap.CR PO SCH (07:45)
[2018-07-15] MEDS: Potassium Chloride 10 MEQ Tab.ER PO SCH (07:45)
[2018-07-15] MEDS: Acetaminophen/oxyCODONE 325-5 MG Tab PO SCH (07:45)
[2018-07-15] MEDS: Isosorbide Mononitrate 30 MG Tab.ER PO SCH (07:46)
[2018-07-15] MEDS: SACUBITRIL PO SCH (07:46)
[2018-07-15] MEDS: VALSARTAN PO SCH (07:46)
[2018-07-15] MEDS: rOPINIRole 3 MG Tab PO SCH (07:46)
[2018-07-15 07:47] VITALS: BP 133/83
--- NOTE | 2018-07-15 08:37 | PCM.PN ---
- General Info Date of Service: 07/15/18 Subjective Update: Taking over care of patient form Dr. Kuhn.Pt claims she feels fine now. 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 She did receive Vicodin and is now feeling better. Pt cannot weight bear and walk. But she prefers to try therapy and is motivated to work with them. Pt has been c/o nausea on and off all day, but has no vomiting.No fever or chills. Functional Status: Reports: Tolerating Diet. Denies: Ambulating - Review of Systems General: Reports: Weakness. Denies: Fever, Fatigue, Malaise, Chills HEENT: Denies: Eye Pain, Sinus Congestion, Rhinitis Pulmonary: Denies: Shortness of Breath, Pleuritic Chest Pain, Cough, Sputum Cardiovascular: Denies: Chest Pain, Lightheadedness Gastrointestinal: Reports: Decreased Appetite, Nausea. Denies: Abdominal Pain, Diarrhea, Vomiting Genitourinary: Denies: Dysuria, Urgency Musculoskeletal: Denies: Joint Pain, Joint Swelling Skin: Reports: Bruising, Rash. Denies: Pruritis - Patient Data Vitals - Most Recent: Last Vital Signs Temp 97.6 F 07/14/18 20:00 Pulse 75 07/15/18 07:44 Resp 16 07/15/18 01:00 BP 133/83 07/15/18 07:46 Pulse Ox 94 L 07/15/18 01:00 Weight - Most Recent: 99.79 kg I&O - Last 24 Hours: Intake & Output 07/14/18 07/15/18 07/15/18 22:59 06:59 14:59 Intake Total 180 Output Total 825 550 Balance -825 -370 Lab Results Last 24 Hours: Laboratory Results - last 24 hr 07/14/18 07/14/18 07/14/18 Range/Units 09:00 09:00 11:56 WBC 8.2 D (4.0-11.0) K/uL RBC 3.36 L (3.80-5.80) M/uL Hgb 10.1 L (11.5-16.5) g/dL Hct 32.8 L (37.0-47.0) % MCV 98 H (76-96) fL MCH 30.1 (27.0-32.0) pg MCHC 30.8 L (31.0-35.0) g/dL RDW 18.1 H (11.0-16.0) % Plt Count 126 L D (150-500) K/uL MPV 10.7 H (6.0-10.0) fL Neut % (Auto) 81.4 H (45.0-70.0) % Lymph % (Auto) 6.6 L (20.0-40.0) % [place] % (Auto) 8.0 (3.0-10.0) % Eos % (Auto) 3.8 (1.0-5.0) % Baso % (Auto) 0.2 (0.0-0.5) % Neut # (Auto) 6.64 (2.00-7.50) K/uL Lymph # (Auto) 0.54 L (1.50-4.00) K/uL [place] # (Auto) 0.65 (0.20-0.80) K/uL Eos # (Auto) 0.31 (0.04-0.40) K/uL Baso # (Auto) 0.02 (0.02-0.10) K/uL Sodium 143 (136-145) mmol/L Potassium 3.6 (3.5-5.1) mmol/L Chloride 105 (98-107) mmol/L Carbon Dioxide 29.9 (21.0-32.0) mmol/L Anion Gap 11.7 (5.0-15.0) mmol/L BUN 51 H* (8-26) mg/dL Creatinine 1.84 H (0.55-1.02) mg/dL Est Cr Clr Drug Dosing 23.14 mL/min Estimated GFR (MDRD) 27 L (>60) MLS/MIN BUN/Creatinine Ratio 27.7 H (6-25) Glucose 142 H (74-100) mg/dL POC Glucose 172 H (74-110) mg/dL Calcium 7.6 L (8.5-10.1) mg/dL Total Bilirubin 0.7 D (0.0-1.0) mg/dL AST 21 (15-37) U/L ALT 175 H (12-78) U/L Alkaline Phosphatase 82 (46-116) U/L Total Protein 6.5 (6.4-8.2) g/dL Albumin 2.2 L (3.4-5.0) g/dL Globulin 4.3 H (2.2-4.2) g/dL Albumin/Globulin Ratio 0.5 L (0.8-2.0) 07/14/18 07/15/18 Range/Units 16:12 07:10 WBC 7.0 (4.0-11.0) K/uL RBC 3.19 L (3.80-5.80) M/uL Hgb 9.5 L (11.5-16.5) g/dL Hct 31.1 L (37.0-47.0) % MCV 98 H (76-96) fL MCH 29.8 (27.0-32.0) pg MCHC 30.5 L (31.0-35.0) g/dL RDW 18.0 H (11.0-16.0) % Plt Count 144 L (150-500) K/uL MPV 10.7 H (6.0-10.0) fL Neut % (Auto) 76.5 H (45.0-70.0) % Lymph % (Auto) 7.8 L (20.0-40.0) % [place] % (Auto) 10.4 H (3.0-10.0) % Eos % (Auto) 4.9 (1.0-5.0) % Baso % (Auto) 0.4 (0.0-0.5) % Neut # (Auto) 5.32 (2.00-7.50) K/uL Lymph # (Auto) 0.54 L (1.50-4.00) K/uL [place] # (Auto) 0.72 (0.20-0.80) K/uL Eos # (Auto) 0.34 (0.04-0.40) K/uL Baso # (Auto) 0.03 (0.02-0.10) K/uL Sodium (136-145) mmol/L Potassium (3.5-5.1) mmol/L Chloride (98-107) mmol/L Carbon Dioxide (21.0-32.0) mmol/L Anion Gap (5.0-15.0) mmol/L BUN (8-26) mg/dL Creatinine (0.55-1.02) mg/dL Est Cr Clr Drug Dosing mL/min Estimated GFR (MDRD) (>60) MLS/MIN BUN/Creatinine Ratio (6-25) Glucose (74-100) mg/dL POC Glucose 158 H (74-110) mg/dL Calcium (8.5-10.1) mg/dL Total Bilirubin (0.0-1.0) mg/dL AST (15-37) U/L ALT (12-78) U/L Alkaline Phosphatase (46-116) U/L Total Protein (6.4-8.2) g/dL Albumin (3.4-5.0) g/dL Globulin (2.2-4.2) g/dL Albumin/Globulin Ratio (0.8-2.0) Med Orders - Current: Current Medications Albuterol/Ipratropium (Duoneb 3.0-0.5 Mg/3 Ml) 3 ml INH Q4HR PRN PRN Reason: Dyspnea Last Admin: 07/11/18 15:45 Dose: 3 ml Aspirin (Halfprin) 81 mg PO DAILY [facility] Last Admin: 07/15/18 07:44 Dose: 81 mg Bumetanide (Bumex) 2 mg PO DAILY [facility] Last Admin: 07/15/18 07:44 Dose: 2 mg Calamine/Phenol (Calmoseptine) 1 - 2 gm TOP TID PRN PRN Reason: RASH Last Admin: 07/08/18 18:07 Dose: 1 gm Carvedilol (Coreg) 25 mg PO DAILY [facility] Last Admin: 07/15/18 07:44 Dose: 25 mg Cyanocobalamin (Vitamin B12) 1,000 mcg PO DAILY [facility] Last Admin: 07/15/18 07:44 Dose: 1,000 mcg Ferrous Sulfate (Ferrous Sulfate) 325 mg PO MoWeFr@1200 [facility] Stop: 07/19/18 23:59 Insulin Aspart (Novolog) 5 unit SUBCUT TIDMEALS [facility] Last Admin: 07/14/18 17:40 Dose: 5 units Insulin Glargine (Lantus Solostar) 20 units SUBCUT DAILY [facility] Last Admin: 07/14/18 08:53 Dose: 20 units Isosorbide Mononitrate (Imdur) 30 mg PO DAILY [facility] Last Admin: 07/15/18 07:46 Dose: 30 mg Nitroglycerin (Nitrostat) 0.4 mg SL Q5M PRN PRN Reason: angina Sacubitril 49mg/Valsartan 51mg Tablet 1 each PO BID [facility] Last Admin: 07/15/18 07:46 Dose: 1 each Omeprazole (Omeprazole) 40 mg PO BID [facility] Last Admin: 07/15/18 07:45 Dose: 40 mg Oxycodone HCl (Oxycodone) 10 mg PO Q4H PRN PRN Reason: Pain Last Admin: 07/15/18 02:24 Dose: 10 mg Oxycodone/Acetaminophen (Percocet 325-5 Mg) 1 tab PO BID [facility] Last Admin: 07/15/18 07:45 Dose: 1 tab Oxycodone/Acetaminophen (Percocet 325-5 Mg) 1 tab PO TID PRN PRN Reason: Headache/Pain Last Admin: 07/10/18 11:25 Dose: 1 tab Potassium Chloride (Klor-Con 10) 10 meq PO TID [facility] Last Admin: 07/15/18 07:45 Dose: 10 meq Ropinirole HCl (Requip) 6 mg PO BID [facility] Last Admin: 07/15/18 07:46 Dose: 6 mg Sodium Chloride (Saline Flush) 10 ml FLUSH BID PRN PRN Reason: Keep Vein Open Last Admin: 07/14/18 20:15 Dose: 10 ml Discontinued Medications Bisacodyl (Dulcolax) Confirm Administered Dose 10 mg .ROUTE .STK-MED ONE Stop: 07/14/18 07:22 Last Admin: 07/14/18 08:34 Dose: 10 mg Calamine/Phenol (Calmoseptine) 113 gm TOP .STK-MED ONE Stop: 07/08/18 16:06 Carvedilol (Coreg) 25 mg PO DAILY [facility] Last Admin: 07/10/18 08:22 Dose: 25 mg Ferrous Sulfate (Ferrous Sulfate) 325 mg PO DAILY [facility] Last Admin: 07/10/18 20:13 Dose: Not Given Ferrous Sulfate (Ferrous Sulfate) 325 mg PO TuThSa@1200 [facility] Stop: 07/13/18 23:59 Last Admin: 07/13/18 12:11 Dose: 325 mg Fluticasone Propionate (Flonase) Confirm Administered Dose 16 gm .ROUTE .STK- MED ONE Stop: 07/10/18 04:04 Last Admin: 07/10/18 05:09 Dose: 1 applic Sodium Chloride (Sodium Chloride 0.45%) 1,000 mls @ 100 mls/hr IV ASDIRECTED [facility] Last Admin: 07/12/18 02:20 Dose: 100 mls/hr Potassium Chloride/Sodium Chloride (Normal Saline With 20 Meq Kcl) 1,000 mls @ 100 mls/hr IV ASDIRECTED [facility] Stop: 07/12/18 23:59 Last Admin: 07/12/18 23:50 Dose: 100 mls/hr Isosorbide Mononitrate (Imdur) Confirm Administered Dose 30 mg .ROUTE .STK-MED ONE Stop: 07/09/18 12:26 Last Admin: 07/09/18 12:39 Dose: Not Given Omeprazole (Omeprazole) 40 mg PO DAILY [facility] Last Admin: 07/10/18 20:14 Dose: Not Given Oxycodone HCl (Oxycodone) Confirm Administered Dose 5 mg .ROUTE .STK-MED ONE Stop: 07/11/18 09:42 Last Admin: 07/11/18 09:49 Dose: Not Given Oxycodone/Acetaminophen (Percocet 325-10 Mg) Confirm Administered Dose 1 tab .ROUTE .STK-MED ONE Stop: 07/08/18 22:56 Last Admin: 07/08/18 22:53 Dose: 1 tab Oxycodone/Acetaminophen (Percocet 325-5 Mg) Confirm Administered Dose 1 tab .ROUTE .STK-MED ONE Stop: 07/09/18 18:36 Last Admin: 07/09/18 18:49 Dose: Not Given Oxycodone/Acetaminophen (Percocet 325-5 Mg) 1 tab PO TID [facility] Potassium Chloride (Klor-Con 10) 10 meq PO DAILY [facility] Last Admin: 07/12/18 08:22 Dose: 10 meq Ropinirole HCl (Requip) Confirm Administered Dose 6 mg .ROUTE .STK-MED ONE Stop: 07/09/18 19:08 Last Admin: 07/09/18 20:36 Dose: 6 mg Ropinirole HCl (Requip) Confirm Administered Dose 4 mg .ROUTE .STK-MED ONE Stop: 07/10/18 07:15 Last Admin: 07/10/18 08:21 Dose: Not Given Ropinirole HCl (Requip) Confirm Administered Dose 6 mg .ROUTE .STK-MED ONE Stop: 07/10/18 19:51 Last Admin: 07/10/18 19:57 Dose: 6 mg Ropinirole HCl (Requip) Confirm Administered Dose 6 mg .ROUTE .STK-MED ONE Stop: 07/11/18 09:54 Last Admin: 07/11/18 10:00 Dose: Not Given Ropinirole HCl (Requip) Confirm Administered Dose 4 mg .ROUTE .STK-MED ONE Stop: 07/11/18 20:38 Last Admin: 07/11/18 20:59 Dose: Not Given Ropinirole HCl (Requip) Confirm Administered Dose 6 mg .ROUTE .STK-MED ONE Stop: 07/12/18 22:01 Last Admin: 07/12/18 22:10 Dose: Not Given - Exam General: Alert, Oriented HEENT: Pupils Equal, Pupils Reactive, EOMI, Mucous Membr. Moist/[place] Neck: Supple Lungs: Normal Respiratory Effort, Decreased Breath Sounds. No: Crackles, Rales Cardiovascular: Regular Rate, Regular Rhythm GI/Abdominal Exam: Normal Bowel Sounds, Soft, Non-Tender, No Organomegaly, No Distention, No Abnormal Bruit, No Mass, Pelvis Stable Extremities: Normal Capillary Refill, Other (there are severl heling abrasion over the feet and knees, healing well. No signs of infection) Skin: Warm, Other (There is mild epidermal eerythema over the sacrum, no skin break down.) - Problem List & Annotations (1) Senile debility SNOMED Code(s): 05884512 Code(s): R54 - AGE-RELATED PHYSICAL DEBILITY Status: Acute Current Visit : Yes (2) Obesity SNOMED Code(s): 603869805, 717631995 Code(s): E66.9 - OBESITY, UNSPECIFIED Status: Acute Current Visit: Yes (3) Pain management SNOMED Code(s): 026325555 Code(s): R52 - PAIN, UNSPECIFIED Status: Acute Current Visit: Yes (4) Generalized weakness SNOMED Code(s): 43644980 Code(s): R53.1 - WEAKNESS Status: Acute Current Visit: Yes (5) Metastatic cancer SNOMED Code(s): 621722830 Code(s): C79.9 - SECONDARY MALIGNANT NEOPLASM OF UNSPECIFIED SITE Status: Acute Current Visit: Yes - Problem List Review Problem List Initiated/Reviewed/Updated: Yes - Assessment Assessment:: 67 year old female with Diabetes with nephropathy, neuropathy, metastatic colon cancer, with acute on chronic pain, with generalized weakness. - Plan Plan:: Patient continued on hydration and lab f/u. There has been some improvement in labs for renal dysfunction and liver dysfunction. Pain controlled. Patient continues to be weak - continue PT/OT. We will monitor status closely. Patient is palliative but family would like to continue supportive IVF and other medications and measures that may improve her quality of life during this time. 07/10/18 Renal function continues to improve. Liver function continues to improve. Anemia - we will continue to monitor for further management. COPD - continue oxygen as needed and nebulizers. Severe deconditioning - PT/OT as tolerated. Metastatic cancer - palliative care. Hypernatremia - resolved with hydration and current management. We will continue to follow. Leg wounds - PT wound care Heel ulcerations - PT wound care. groin and decubitus stage 1 ulcer on admission - Navarro placed and hygiene cares in place. Confusion - we will reassess as her labs improve. Pain management - Percocet BID at this time and titrate accordingly. 07/11/18 Renal function stable and slightly improved. Liver function improving but still elevated. Anemia slightly worse - continue monitoring for symptoms and repeat H/H. COPD - continue oxygen and nebulizer management. Severe deconditioning - PT/OT needed. Patient willing to try and work with PT/ OT as able to but she remains very weak and may not be able to tolerate lengthy PT. Metastatic adenocarcinoma of the colon to liver. - Palliative care Hypernatremia - Resolved. Leg wounds - wound care and dressing. Heel ulcerations - continue wound care - consider Unna boots Groin and decubitus stage one ulcer on admission - Continue navarro and hygiene cares. Confusion/Delirium - Improved greatly Pain Management - tolerating oxycodone, may need further management as needed. Patient is very weak and unable to get up without assistance. She is a great fall risk and needs assistance for all her needs. Her life expectancy is less than 6 months. 07/12/18 Renal function stable and slightly improved with IVF hydration. Hypokalemia - patient has been on 10meq and we will increase to TID and adjust IVF with 10meq KCl. Liver function improving but still elevated. The liver enzymes have improved daily but still remain elevated. Anemia improved today - continue monitoring for symptoms and repeat H/H. COPD - continue oxygen and nebulizer management. Severe deconditioning - PT/OT needed. Patient willing to try and work with PT/ OT as able to but she remains very weak and has not been able to tolerate lengthy PT. Patient is just too weak. Counseled on continuing to work with PT/ OT but this may not be possible. Metastatic adenocarcinoma of the colon to liver. - Palliative care Hypernatremia - Resolved. Leg wounds - wound care and dressing. Heel ulcerations - continue wound care - consider Unna boots Groin and decubitus stage one ulcer on admission - Continue navarro and hygiene cares. Confusion/Delirium - Improved greatly, she is more alert every day. Pain Management - tolerating oxycodone, may need further management as needed. Patient is very weak and unable to get up without assistance. She is a great fall risk and needs assistance for all her needs. Her life expectancy is less than 6 months. Her prior level of function is wheelchair bound, multiple falls at home with incontinence(patient has been incontinent for the past year) and is unable to care for her. She uses a wheelchair all the time at home and has 24hr home oxygen 2L. There is no home support as [facility] hosp[facility] and no home health care available for her. She is in dire need for further cares and eventual hospice care. [facility] has [facility] denied her admission to hospice. 07/15/18 taking over care Pt has multiple comorbid condition with metastatic lung cancer with gradual deterioration of general health. Apparently she cannot get around much and has been getting hard for her to take care of her. Has developed early stage one sacral ulcer. Very limited mobility. Also pain has been getting worse , some of which might be related to the metastatic cancer. She still has been having breakthrough pain. Pt has had nausea on andoff, will start Zofran 4mg TID PRN for nausea. Her CBC done today appears stable. It is in the best interest of the patient,she does want to try OT and Pt and is she is motivated to walk and be independent. She could get OT and PT and also have close monitoring of the skin. She is presently using air mattress to prevent skin pressure injury. Pt definitely cannot go back home as she needs one on one care. She would benefit from swing bed level of care.
[2018-07-15] MEDS ORDERED: Ondansetron 4 MG Tab.DIS ONE (08:38)
[2018-07-15] MEDS ORDERED: Ondansetron 4 MG Tab.DIS PO PRN (08:51)
[2018-07-15] MEDS: Insulin Glargine,Human Rec. Analog 100 Units/ML 3 ML Pen SUBCUT SCH (09:09)
[2018-07-15] MEDS: Insulin Aspart 100 Units/ML 3 ML Pen SUBCUT SCH ×2 (09:09→12:10)
[2018-07-15] MEDS ORDERED: Ferrous Sulfate 325 MG Tab PO SCH (12:00)
== END 2018-07-15 13:12 | disposition home or self-care (01) | DRG 683 ==
LOC: LB.ED 13:23 → LB.MS 15:16 → UNDOADMIN 15:30 → LB.MS 15:30
PROVIDERS: ADMIT Family Medicine; ATTEND Family Medicine
DX: N17.9 Acute kidney failure, unspecified (principal); E87.0 Hyperosmolality and hypernatremia; I13.0 Hypertensive heart and chronic kidney disease with heart failure and stage 1 through stage 4 chronic kidney disease, or unspecified chronic kidney disease; L97.415 Non-pressure chronic ulcer of right heel and midfoot with muscle involvement without evidence of necrosis; C18.9 Malignant neoplasm of colon, unspecified; C78.7 Secondary malignant neoplasm of liver and intrahepatic bile duct; N18.4 Chronic kidney disease, stage 4 (severe); E78.00 Pure hypercholesterolemia, unspecified; I10 Essential (primary) hypertension; I27.20 Pulmonary hypertension, unspecified; J44.9 Chronic obstructive pulmonary disease, unspecified; K59.09 Other constipation; E11.21 Type 2 diabetes mellitus with diabetic nephropathy; E11.22 Type 2 diabetes mellitus with diabetic chronic kidney disease; I50.9 Heart failure, unspecified; M54.9 Dorsalgia, unspecified; E11.621 Type 2 diabetes mellitus with foot ulcer; E11.319 Type 2 diabetes mellitus with unspecified diabetic retinopathy without macular edema; G47.30 Sleep apnea, unspecified; G89.29 Other chronic pain; R32 Unspecified urinary incontinence; M79.7 Fibromyalgia; G43.909 Migraine, unspecified, not intractable, without status migrainosus; R42 Dizziness and giddiness; F41.9 Anxiety disorder, unspecified; F32.9 Major depressive disorder, single episode, unspecified; E66.9 Obesity, unspecified; E61.1 Iron deficiency; Z95.5 Presence of coronary angioplasty implant and graft; M54.5 Low back pain; R41.0 Disorientation, unspecified; D64.9 Anemia, unspecified; K21.9 Gastro-esophageal reflux disease without esophagitis; G25.81 Restless legs syndrome; G47.09 Other insomnia; D69.6 Thrombocytopenia, unspecified; R54 Age-related physical debility; R52 Pain, unspecified; R07.9 Chest pain, unspecified; R53.1 Weakness; R63.0 Anorexia; R53.81 Other malaise; R11.2 Nausea with vomiting, unspecified; R06.02 Shortness of breath; E11.40 Type 2 diabetes mellitus with diabetic neuropathy, unspecified; E87.6 Hypokalemia; R29.6 Repeated falls; L89.151 Pressure ulcer of sacral region, stage 1; Z99.3 Dependence on wheelchair; Z86.718 Personal history of other venous thrombosis and embolism; Z79.891 Long term (current) use of opiate analgesic; Z51.5 Encounter for palliative care; Z87.440 Personal history of urinary (tract) infections; Z79.82 Long term (current) use of aspirin; Z79.4 Long term (current) use of insulin; Z87.01 Personal history of pneumonia (recurrent); Z79.899 Other long term (current) drug therapy; Z90.49 Acquired absence of other specified parts of digestive tract; Z79.02 Long term (current) use of antithrombotics/antiplatelets; Z99.81 Dependence on supplemental oxygen
CPT/HCPCS: 36415; 71045; 80053; 81001; 83036; 83735; 84443; 85025; 85610; 99285; A0425; A0429; 82962; 97162-GP; 97530-GP; A9270-GY; J3480; J3490; J7620-GY

== ENCOUNTER 2018-07-12 12:12 | Inpatient (IN) | payer MEDICARE, OTHER ==
[2018-07-12] MEDS ORDERED: Tuberculin, PPD 5 Units/0.1 ML 1 ML MDV IDERM ONE (17:03)
[2018-07-15] MEDS ORDERED: Acetaminophen/oxyCODONE 325-5 MG Tab PO PRN (13:14)
[2018-07-15] MEDS ORDERED: Albuterol/Ipratropium 3.0-0.5 MG/3 ML Neb Soln INH PRN (13:14)
[2018-07-15] MEDS ORDERED: Menthol/Zinc Oxide Ointment 113 GM Tube TOP PRN (13:14)
[2018-07-15] MEDS: Potassium Chloride 10 MEQ Tab.ER PO SCH ×2 (15:39→20:46)
[2018-07-15] MEDS: Insulin Aspart 100 Units/ML 3 ML Pen SUBCUT SCH (17:43)
[2018-07-15] MEDS: Acetaminophen/oxyCODONE 325-5 MG Tab PO SCH (20:45)
[2018-07-15] MEDS: Omeprazole 20 MG Cap.CR PO SCH (20:46)
[2018-07-15] MEDS: Non-Formulary Medication 1 Each (Sacubitril/Valsartan [Entresto 49 Mg-51 Mg Tablet] 1 EACH PO SCH (20:52)
[2018-07-15] MEDS: ROPINIROLE 3 MG PO SCH (20:53)
[2018-07-16] MEDS: ROPINIROLE 3 MG PO SCH (07:34)
[2018-07-16] MEDS: Non-Formulary Medication 1 Each (Sacubitril/Valsartan [Entresto 49 Mg-51 Mg Tablet] 1 EACH PO SCH ×2 (07:34→19:26)
[2018-07-16] MEDS: Aspirin 81 MG Tab.EC PO SCH (07:35)
[2018-07-16] MEDS: Omeprazole 20 MG Cap.CR PO SCH ×2 (07:36→19:26)
[2018-07-16] MEDS: Cyanocobalamin (Vitamin B12) 1,000 MCG Tab PO SCH (07:41)
[2018-07-16] MEDS: Acetaminophen/oxyCODONE 325-5 MG Tab PO SCH ×2 (07:41→19:23)
[2018-07-16] MEDS: Carvedilol 25 MG Tab PO SCH (07:42)
[2018-07-16] MEDS: Isosorbide Mononitrate 30 MG Tab.ER PO SCH (07:42)
[2018-07-16] MEDS: Potassium Chloride 10 MEQ Tab.ER PO SCH ×3 (07:42→19:26)
[2018-07-16] MEDS: Bumetanide 2 MG Tab PO SCH (07:43)
[2018-07-16] MEDS: Insulin Glargine,Human Rec. Analog 100 Units/ML 3 ML Pen SUBCUT SCH (07:54)
[2018-07-16] MEDS: Insulin Aspart 100 Units/ML 3 ML Pen SUBCUT SCH ×3 (07:54→17:14)
[2018-07-16] MEDS ORDERED: Bumetanide 1 MG Tab PO SCH (08:00)
[2018-07-16] MEDS: oxyCODONE 5 MG Tab PO PRN (13:49)
[2018-07-16] MEDS ORDERED: Menthol/Zinc Oxide Ointment 113 GM Tube TOP ONE (14:00)
[2018-07-17] MEDS: Potassium Chloride 10 MEQ Tab.ER PO SCH ×4 (07:53→20:26)
[2018-07-17] MEDS: Omeprazole 20 MG Cap.CR PO SCH ×3 (07:53→20:26)
[2018-07-17] MEDS: Aspirin 81 MG Tab.EC PO SCH ×2 (07:53→09:28)
[2018-07-17] MEDS: Bumetanide 2 MG Tab PO SCH (07:54)
[2018-07-17] MEDS: Cyanocobalamin (Vitamin B12) 1,000 MCG Tab PO SCH ×2 (07:54→09:28)
[2018-07-17] MEDS: Isosorbide Mononitrate 30 MG Tab.ER PO SCH (07:54)
[2018-07-17] MEDS: Carvedilol 25 MG Tab PO SCH (07:54)
[2018-07-17] MEDS: Non-Formulary Medication 1 Each (Sacubitril/Valsartan [Entresto 49 Mg-51 Mg Tablet] 1 EACH PO SCH ×2 (07:58→20:28)
[2018-07-17] MEDS: Acetaminophen/oxyCODONE 325-5 MG Tab PO SCH ×2 (07:58→20:26)
[2018-07-17] MEDS: Ondansetron 4 MG Tab.DIS PO PRN ×2 (08:27→17:08)
[2018-07-17] MEDS: Insulin Aspart 100 Units/ML 3 ML Pen SUBCUT SCH ×3 (08:53→17:09)
[2018-07-17] MEDS: Insulin Glargine,Human Rec. Analog 100 Units/ML 3 ML Pen SUBCUT SCH (08:54)
[2018-07-17] MEDS ORDERED: Ferrous Sulfate 325 MG Tab PO SCH (12:00)
[2018-07-18] MEDS: oxyCODONE 5 MG Tab PO PRN (01:17)
[2018-07-18] MEDS: Aspirin 81 MG Tab.EC PO SCH (09:46)
[2018-07-18] MEDS: Potassium Chloride 10 MEQ Tab.ER PO SCH ×2 (09:46→15:50)
[2018-07-18] MEDS: Bumetanide 2 MG Tab PO SCH (09:46)
[2018-07-18] MEDS: Acetaminophen/oxyCODONE 325-5 MG Tab PO SCH (09:46)
[2018-07-18] MEDS: Omeprazole 20 MG Cap.CR PO SCH (09:47)
[2018-07-18] MEDS: Cyanocobalamin (Vitamin B12) 1,000 MCG Tab PO SCH (09:47)
[2018-07-18] MEDS: Isosorbide Mononitrate 30 MG Tab.ER PO SCH (09:57)
[2018-07-18] MEDS: Insulin Aspart 100 Units/ML 3 ML Pen SUBCUT SCH ×2 (09:58→15:50)
[2018-07-18] MEDS: Carvedilol 25 MG Tab PO SCH (09:58)
[2018-07-18] MEDS: Insulin Glargine,Human Rec. Analog 100 Units/ML 3 ML Pen SUBCUT SCH (09:59)
[2018-07-18] MEDS: Non-Formulary Medication 1 Each (Sacubitril/Valsartan [Entresto 49 Mg-51 Mg Tablet] 1 EACH PO SCH (10:00)
[2018-07-18 10:05] VITALS: BP 154/74
== END 2018-07-18 10:30 | DRG 948 ==
LOC: LB.MS 07-15 10:10
PROVIDERS: ADMIT Family Medicine; ATTEND Family Medicine
DX: R53.1 Weakness (principal); E87.1 Hypo-osmolality and hyponatremia; C18.9 Malignant neoplasm of colon, unspecified; C79.9 Secondary malignant neoplasm of unspecified site; Z51.5 Encounter for palliative care; I50.9 Heart failure, unspecified; J44.9 Chronic obstructive pulmonary disease, unspecified; Z99.81 Dependence on supplemental oxygen; I27.20 Pulmonary hypertension, unspecified; E11.9 Type 2 diabetes mellitus without complications; I25.10 Atherosclerotic heart disease of native coronary artery without angina pectoris; Z79.4 Long term (current) use of insulin; S31.109D Unspecified open wound of abdominal wall, unspecified quadrant without penetration into peritoneal cavity, subsequent encounter; S21.209D Unspecified open wound of unspecified back wall of thorax without penetration into thoracic cavity, subsequent encounter
CPT/HCPCS: 82962; 97110-GO; 97110-GP; 97165-GO; A0425; A0429; A9270-GY; J7620-GY